=== PATIENT | male | born 1975 | race Hispanic/Latino ===

== ENCOUNTER 2022-01-03 11:01 | Inpatient (IN) | payer OTHER ==
[2022-01-03] VITALS (22 sets, daily range): BP systolic 88–140; BP diastolic 54–81
[~2022-01-03] VITALS: Ht 167.6 cm; Wt 78.5 kg
[2022-01-03] MEDS ORDERED: 0.9%NACL 1000ML 1,000 ML IV ONE ×2 (11:30→12:30)
[2022-01-03] MEDS ORDERED: MORPHINE 4 MG SYG IVP ONE (11:30)
[2022-01-03 11:37] LABS: BASOPHILS % (AUTO) 0.4 % (0.0-5.0); HEMATOCRIT 40.6 % (42-54); LYMPHOCYTES % (AUTO) 2.9 % (21.0-51.0); MEAN CORPUSCULAR HEMOGLOBIN 29.2 pg (27.0-33.0); MEAN CORPUSCULAR HGB CONC 34.2 g/dL (32.0-36.0); MEAN CORPUSCULAR VOLUME 85.3 fL (79-99); MONOCYTES % (AUTO) 3.9 % (3.0-13.0); PLATELET COUNT (AUTO) 284 K/uL (130-400); RED BLOOD CELL COUNT(AUTO) 4.76 MIL/uL (4.50-6.20); RED CELL DISTRIBUTION WIDTH 12.1 % (11.0-15.5)
[2022-01-03 11:48] LABS: ALBUMIN 2.6 g/dL (3.5-5.0); BILIRUBIN,TOTAL 0.6 mg/dL (0.2-1.0); CREATININE 1.2 mg/dL (0.5-1.5); POTASSIUM 3.1 mmol/L (3.5-5.1); TOTAL PROTEIN, SERUM 7.8 g/dL (6.0-8.3)
[2022-01-03] MEDS ORDERED: IOHEXOL-350 75 ML VIAL IV ONE (11:57)
[2022-01-03] MEDS: KETOROLAC 30MG VIAL (30MG/ML) IVP PRN ×2 (12:00→20:11)
[2022-01-03] MEDS ORDERED: ZOSYN 3.375GM +NS 50ML IV SCH (12:30)
[2022-01-03] MEDS ORDERED: INSULIN HUMULIN R 100 UNIT/ML 3ML SQ ONE (12:30)
[2022-01-03] MEDS ORDERED: ZOSYN 3.375GM+NS 50ML 50 ML ONE (12:36)
[2022-01-03] MEDS ORDERED: 0.9%NACL 50ML 50 ML IV ONE (12:38)
[2022-01-03] MEDS ORDERED: INSULIN HUMULIN R 100 UNIT/ML 3ML ONE (12:38)
[2022-01-03 13:01] LABS: APPEARANCE,URINE Cloudy (CLEAR); BILIRUBIN,URINE Negative (NEGATIVE); COLOR,URINE Yellow (YELLOW); GLUCOSE, URINE (UA) >=1000 mg/dL (NEGATIVE); KETONES,URINE Negative (NEGATIVE); LEUKOCYTE ESTERASE ,URINE Small (NEGATIVE); NITRATE,URINE Negative (NEGATIVE); OCCULT BLOOD,URINE Negative (NEGATIVE); PH,URINE 5.5 (5.0-8.0); PROTEIN,URINE Trace mg/dL (NEGATIVE)
[2022-01-03 13:09] LABS: BACTERIA,URINE Moderate /HPF (None Seen); RBC,URINE 0-1 /HPF (0-1)
[2022-01-03] MEDS ORDERED: ONDANSETRON 4MG INJ IV PRN (14:00)
[2022-01-03] MEDS: 0.9%NACL 1000ML 1,000 ML IV SCH (14:00)
[2022-01-03] MEDS ORDERED: ACETAMINOPHEN 325 MG TAB PO PRN ×2 (14:00)
[2022-01-03 14:22] LABS: INR 1.1 (0.85-1.15); PROTHROMBIN TIME 11.9 SEC (9.6-11.6)
[2022-01-03 15:03] LABS: HEMOGLOBIN A1C 11.4 % (4.0-6.0)
[2022-01-03] MEDS: INSULIN HUMULIN R 100 UNIT/ML 3ML SQ SCH ×2 (16:30→21:00)
[2022-01-03] MEDS ORDERED: ATEN50TA PO (16:40)
[2022-01-03] MEDS ORDERED: LISI2.5T13 PO (16:48)
[2022-01-03] MEDS ORDERED: INSULIN LISPRO 100 UNIT/ML 3ML SQ SCH (17:00)
[2022-01-03] MEDS ORDERED: LIDOCAINE PF 100MG/5ML (2%) SYRINGE 5ML ONE (18:46)
[2022-01-03] MEDS ORDERED: MIDAZOLAM HCL 1 MG/ML 2ML VIAL ONE (18:47)
[2022-01-03] MEDS ORDERED: ROCURONIUM 10MG/1ML SYR 10 MG/ML ML ONE (18:47)
[2022-01-03] MEDS ORDERED: PROPOFOL 10 MG/ML 20ML VIAL IV ONE (18:47)
[2022-01-03] MEDS ORDERED: FENTANYL CITRATE PF 50 MCG/1 ML 2ML VIAL ONE (18:47)
[2022-01-03] MEDS ORDERED: MEPERIDINE-PF 25 MG/ML SYG ONE (19:57)
[2022-01-03] MEDS ORDERED: INSULIN GLARGINE 100 UNITS/ML 10 ML VIAL SQ SCH (21:00)
[2022-01-03] MEDS: FAMOTIDINE 20MG VIAL IV SCH (21:32)
[2022-01-03] MEDS: ZOSYN 3.375GM+NS 50ML 50 ML IV SCH (21:32)
[2022-01-03] MEDS ORDERED: LACTATED RINGERS 1000ML 1,000 ML IV ONE (23:46)
[2022-01-04] VITALS (9 sets, daily range): BP systolic 108–140; BP diastolic 63–84
[2022-01-04] MEDS: 0.9%NACL 1000ML 1,000 ML IV SCH ×3 (01:17→20:00)
[2022-01-04] MEDS: ZOSYN 3.375GM+NS 50ML 50 ML IV SCH ×3 (05:03→20:30)
[2022-01-04 05:13] LABS: BASOPHILS % (AUTO) 0.3 % (0.0-5.0); EOSINOPHILS % (AUTO) 0.1 % (0.0-8.0); HEMATOCRIT 33.9 % (42-54); LYMPHOCYTES % (AUTO) 7.6 % (21.0-51.0); MEAN CORPUSCULAR HEMOGLOBIN 29.3 pg (27.0-33.0); MEAN CORPUSCULAR HGB CONC 33.9 g/dL (32.0-36.0); MEAN CORPUSCULAR VOLUME 86.5 fL (79-99); MONOCYTES % (AUTO) 3.9 % (3.0-13.0); NEUTROPHILS % (AUTO) 86.3 % (40.0-77.0); PLATELET COUNT (AUTO) 223 K/uL (130-400); RED BLOOD CELL COUNT(AUTO) 3.92 MIL/uL (4.50-6.20); RED CELL DISTRIBUTION WIDTH 12.6 % (11.0-15.5); WHITE BLOOD COUNT (AUTO) 19.1 K/uL (4.8-10.8)
[2022-01-04 05:26] LABS: ALBUMIN 1.9 g/dL (3.5-5.0); BILIRUBIN,TOTAL 0.2 mg/dL (0.2-1.0); CREATININE 1.1 mg/dL (0.5-1.5); TOTAL PROTEIN, SERUM 6.3 g/dL (6.0-8.3)
[2022-01-04 05:33] LABS: POTASSIUM 2.7 mmol/L (3.5-5.1)
[2022-01-04] MEDS ORDERED: KCL 20 MEQ ERTAB PO ONE (06:00)
[2022-01-04] MEDS: INSULIN HUMULIN R 100 UNIT/ML 3ML SQ SCH ×4 (06:11→20:22)
[2022-01-04 06:20] LABS: ERYTHROCYTE SEDIMENTATION RATE 103 MM/HR (0-15)
[2022-01-04] MEDS: FAMOTIDINE 20MG VIAL IV SCH ×2 (08:42→20:30)
[2022-01-04] MEDS ORDERED: LIDOCAINE HCL-MPF 1% 2ML VIAL IV PRN (09:00)
[2022-01-04] MEDS ORDERED: POTASSIUM CHLORIDE 20MEQ/100ML 100 ML IV PRN (09:00)
[2022-01-04] MEDS: KCL 20 MEQ ERTAB PO PRN ×2 (16:45→21:57)
[2022-01-04] MEDS ORDERED: LACTATED RINGERS 1000ML 1,914 ML IV ONE (23:35)
[2022-01-05] MEDS: KCL 20 MEQ ERTAB PO PRN ×3 (00:30→06:42)
[2022-01-05 04:04] VITALS: BP 136/81
[2022-01-05] MEDS: 0.9%NACL 1000ML 1,000 ML IV SCH ×2 (04:37→16:26)
[2022-01-05] MEDS: ZOSYN 3.375GM+NS 50ML 50 ML IV SCH ×3 (04:37→20:33)
[2022-01-05 04:50] LABS: MEAN CORPUSCULAR HEMOGLOBIN 29.9 pg (27.0-33.0); MEAN CORPUSCULAR HGB CONC 33.8 g/dL (32.0-36.0); MEAN CORPUSCULAR VOLUME 88.3 fL (79-99); RED BLOOD CELL COUNT(AUTO) 3.85 MIL/uL (4.50-6.20); RED CELL DISTRIBUTION WIDTH 12.8 % (11.0-15.5); WHITE BLOOD COUNT (AUTO) 15.2 K/uL (4.8-10.8)
[2022-01-05 05:03] LABS: CREATININE 0.9 mg/dL (0.5-1.5); POTASSIUM 3.3 mmol/L (3.5-5.1)
[2022-01-05] MEDS: INSULIN HUMULIN R 100 UNIT/ML 3ML SQ SCH ×4 (06:41→20:31)
[2022-01-05 08:00] VITALS: BP 147/87
[2022-01-05] MEDS: FAMOTIDINE 20MG VIAL IV SCH ×2 (08:42→20:33)
[2022-01-05] MEDS: POTASSIUM CHLORIDE 10% ELIXIR 20 MEQ/15 ML UDCUP PO PRN ×2 (08:43→13:49)
[2022-01-05 11:53] VITALS: BP 147/73
[2022-01-05 16:00] VITALS: BP 136/88
[2022-01-05 20:04] VITALS: BP 134/78
[2022-01-05 23:55] VITALS: BP 136/79
[2022-01-06] MEDS: 0.9%NACL 1000ML 1,000 ML IV SCH (03:17)
[2022-01-06 04:08] VITALS: BP 139/85
[2022-01-06] MEDS: ZOSYN 3.375GM+NS 50ML 50 ML IV SCH ×3 (05:20→21:09)
[2022-01-06] MEDS: INSULIN HUMULIN R 100 UNIT/ML 3ML SQ SCH ×4 (06:14→21:21)
[2022-01-06 08:00] VITALS: BP 147/84
[2022-01-06] MEDS: FAMOTIDINE 20MG VIAL IV SCH ×2 (08:37→21:09)
[2022-01-06 12:00] VITALS: BP 130/92
[2022-01-06 16:00] VITALS: BP 128/84
[2022-01-06] MEDS: MORPHINE 2 MG SYG IV PRN ×2 (17:25→17:26)
[2022-01-06 20:00] VITALS: BP 133/80
[2022-01-06] MEDS ORDERED: INSULIN GLARGINE 100 UNITS/ML 10 ML VIAL SQ SCH (21:00)
[2022-01-06 23:23] VITALS: BP 143/85
[2022-01-07 04:16] VITALS: BP 130/81
[2022-01-07 04:51] LABS: BASOPHILS % (AUTO) 0.4 % (0.0-5.0); EOSINOPHILS % (AUTO) 0.9 % (0.0-8.0); HEMATOCRIT 37.8 % (42-54); LYMPHOCYTES % (AUTO) 22.4 % (21.0-51.0); MEAN CORPUSCULAR HEMOGLOBIN 29.5 pg (27.0-33.0); MEAN CORPUSCULAR HGB CONC 33.6 g/dL (32.0-36.0); MEAN CORPUSCULAR VOLUME 87.9 fL (79-99); MONOCYTES % (AUTO) 8.8 % (3.0-13.0); NEUTROPHILS % (AUTO) 66.9 % (40.0-77.0); PLATELET COUNT (AUTO) 319 K/uL (130-400); RED CELL DISTRIBUTION WIDTH 12.6 % (11.0-15.5); WHITE BLOOD COUNT (AUTO) 11.5 K/uL (4.8-10.8)
[2022-01-07] MEDS: ZOSYN 3.375GM+NS 50ML 50 ML IV SCH ×3 (05:00→19:38)
[2022-01-07] MEDS: INSULIN HUMULIN R 100 UNIT/ML 3ML SQ SCH ×4 (05:01→19:46)
[2022-01-07 05:36] LABS: ALBUMIN 2.2 g/dL (3.5-5.0); BILIRUBIN,TOTAL 0.3 mg/dL (0.2-1.0); CREATININE 0.8 mg/dL (0.5-1.5); POTASSIUM 3.3 mmol/L (3.5-5.1)
[2022-01-07] MEDS ORDERED: HYDROCODONE/ACETAMINOPHEN 5/325 MG TAB PO PRN (07:00)
[2022-01-07 08:00] VITALS: BP 143/87
[2022-01-07] MEDS: FAMOTIDINE 20MG VIAL IV SCH ×2 (09:36→19:38)
[2022-01-07 12:00] VITALS: BP 113/79
[2022-01-07 16:00] VITALS: BP 137/82
[2022-01-07] MEDS: INSULIN GLARGINE 100 UNITS/ML 10 ML VIAL SQ SCH (19:48)
[2022-01-07 20:31] VITALS: BP 124/82
[2022-01-07 23:15] VITALS: BP 133/81
[2022-01-08 03:58] VITALS: BP 142/82
[2022-01-08] MEDS: ZOSYN 3.375GM+NS 50ML 50 ML IV SCH ×3 (04:16→20:52)
[2022-01-08 04:32] LABS: BASOPHILS % (AUTO) 0.7 % (0.0-5.0); EOSINOPHILS % (AUTO) 1.3 % (0.0-8.0); HEMATOCRIT 37.1 % (42-54); LYMPHOCYTES % (AUTO) 23.3 % (21.0-51.0); MEAN CORPUSCULAR HGB CONC 34.8 g/dL (32.0-36.0); MEAN CORPUSCULAR VOLUME 86.3 fL (79-99); MONOCYTES % (AUTO) 7.9 % (3.0-13.0); NEUTROPHILS % (AUTO) 65.9 % (40.0-77.0); PLATELET COUNT (AUTO) 328 K/uL (130-400); RED CELL DISTRIBUTION WIDTH 12.7 % (11.0-15.5); WHITE BLOOD COUNT (AUTO) 12.8 K/uL (4.8-10.8)
[2022-01-08 04:55] LABS: ALBUMIN 2.3 g/dL (3.5-5.0); BILIRUBIN,TOTAL 0.2 mg/dL (0.2-1.0); CREATININE 0.8 mg/dL (0.5-1.5); POTASSIUM 3.5 mmol/L (3.5-5.1)
[2022-01-08] MEDS: INSULIN HUMULIN R 100 UNIT/ML 3ML SQ SCH ×4 (05:22→20:48)
[2022-01-08 08:00] VITALS: BP 141/86
[2022-01-08] MEDS: FAMOTIDINE 20MG VIAL IV SCH ×2 (10:13→20:53)
[2022-01-08] MEDS: INSULIN GLARGINE 100 UNITS/ML 10 ML VIAL SQ SCH ×2 (10:17→20:48)
[2022-01-08 12:00] VITALS: BP 121/81
[2022-01-08] MEDS ORDERED: POLYETHYLENE GLYCOL 3350 17 GM POWD.PACK PO SCH (12:00)
[2022-01-08 16:00] VITALS: BP 129/85
[2022-01-08 19:00] VITALS: BP 140/79
[2022-01-08] MEDS ORDERED: LOVA20TA3 PO (21:00)
[2022-01-08] MEDS ORDERED: HYDR25TA PO (21:00)
[2022-01-08] MEDS ORDERED: METF-446 PO (21:00)
[2022-01-08] MEDS ORDERED: GLIP10TA19 PO (21:00)
[2022-01-08] MEDS: KCL 20 MEQ ERTAB PO PRN (21:21)
[2022-01-09] VITALS: BP 140/81
[2022-01-09] MEDS: KCL 20 MEQ ERTAB PO PRN (00:48)
[2022-01-09 04:00] VITALS: BP 130/84
[2022-01-09] MEDS: ZOSYN 3.375GM+NS 50ML 50 ML IV SCH ×3 (05:14→21:02)
[2022-01-09] MEDS: INSULIN HUMULIN R 100 UNIT/ML 3ML SQ SCH ×4 (06:35→21:00)
[2022-01-09 06:56] LABS: BASOPHILS % (AUTO) 0.5 % (0.0-5.0); HEMATOCRIT 37.2 % (42-54); LYMPHOCYTES % (AUTO) 25.2 % (21.0-51.0); MEAN CORPUSCULAR HEMOGLOBIN 29.9 pg (27.0-33.0); MEAN CORPUSCULAR HGB CONC 33.9 g/dL (32.0-36.0); MEAN CORPUSCULAR VOLUME 88.4 fL (79-99); MONOCYTES % (AUTO) 7.6 % (3.0-13.0); NEUTROPHILS % (AUTO) 64.5 % (40.0-77.0); PLATELET COUNT (AUTO) 363 K/uL (130-400); RED BLOOD CELL COUNT(AUTO) 4.21 MIL/uL (4.50-6.20); RED CELL DISTRIBUTION WIDTH 12.6 % (11.0-15.5); WHITE BLOOD COUNT (AUTO) 12.3 K/uL (4.8-10.8)
[2022-01-09] MEDS: LACTULOSE 20 GM/30 ML UDCUP PO PRN ×2 (07:12→09:37)
[2022-01-09 07:24] LABS: CREATININE 0.9 mg/dL (0.5-1.5); POTASSIUM 4.1 mmol/L (3.5-5.1)
[2022-01-09 08:00] VITALS: BP 131/89
[2022-01-09] MEDS: INSULIN GLARGINE 100 UNITS/ML 10 ML VIAL SQ SCH ×2 (09:35→20:59)
[2022-01-09] MEDS: POLYETHYLENE GLYCOL 3350 17 GM POWD.PACK PO SCH (09:37)
[2022-01-09] MEDS: FAMOTIDINE 20MG VIAL IV SCH ×2 (09:37→21:02)
[2022-01-09 12:00] VITALS: BP 135/82
[2022-01-09 16:00] VITALS: BP 134/75
[2022-01-09] MEDS: LUBIPROSTONE 24 MCG CAP PO SCH (17:23)
[2022-01-09] MEDS: HYDROMORPHONE 0.5 MG SYG (0.5MG/0.5ML) IVP PRN (17:59)
[2022-01-09 20:00] VITALS: BP 138/78
[2022-01-10] VITALS (7 sets, daily range): BP systolic 122–139; BP diastolic 63–88
[2022-01-10 05:44] LABS: HEMATOCRIT 37.9 % (42-54); MEAN CORPUSCULAR HEMOGLOBIN 29.2 pg (27.0-33.0); MEAN CORPUSCULAR VOLUME 88.6 fL (79-99); RED BLOOD CELL COUNT(AUTO) 4.28 MIL/uL (4.50-6.20); RED CELL DISTRIBUTION WIDTH 12.6 % (11.0-15.5); WHITE BLOOD COUNT (AUTO) 11.2 K/uL (4.8-10.8)
[2022-01-10 06:00] LABS: CREATININE 0.8 mg/dL (0.5-1.5); POTASSIUM 3.9 mmol/L (3.5-5.1)
[2022-01-10] MEDS: ZOSYN 3.375GM+NS 50ML 50 ML IV SCH ×3 (06:24→20:35)
[2022-01-10] MEDS: INSULIN HUMULIN R 100 UNIT/ML 3ML SQ SCH ×4 (07:28→20:40)
[2022-01-10] MEDS: FAMOTIDINE 20MG VIAL IV SCH ×2 (08:48→20:35)
[2022-01-10] MEDS: LUBIPROSTONE 24 MCG CAP PO SCH ×2 (08:48→17:25)
[2022-01-10] MEDS: INSULIN GLARGINE 100 UNITS/ML 10 ML VIAL SQ SCH ×2 (08:48→20:40)
[2022-01-10] MEDS: POLYETHYLENE GLYCOL 3350 17 GM POWD.PACK PO SCH (08:49)
[2022-01-11 04:18] VITALS: BP 122/77
[2022-01-11] MEDS: ZOSYN 3.375GM+NS 50ML 50 ML IV SCH ×2 (05:20→12:36)
[2022-01-11] MEDS: INSULIN HUMULIN R 100 UNIT/ML 3ML SQ SCH ×2 (06:24→11:54)
[2022-01-11 08:00] VITALS: BP 138/81
[2022-01-11] MEDS: FAMOTIDINE 20MG VIAL IV SCH (08:14)
[2022-01-11] MEDS: LUBIPROSTONE 24 MCG CAP PO SCH (08:14)
[2022-01-11] MEDS: POLYETHYLENE GLYCOL 3350 17 GM POWD.PACK PO SCH (08:14)
[2022-01-11] MEDS: INSULIN GLARGINE 100 UNITS/ML 10 ML VIAL SQ SCH (08:20)
[2022-01-11] MEDS ORDERED: POLY17PO4 PO (10:22)
[2022-01-11 12:00] VITALS: BP 126/75
[2022-01-11] MEDS: HYDROMORPHONE 0.5 MG SYG (0.5MG/0.5ML) IVP PRN (13:50)
[2022-01-11 16:00] VITALS: BP 133/76
== END 2022-01-11 17:35 | disposition home or self-care (01) | DRG 854 ==
LOC: EDH 11:01 → EDHIP 11:02 → 3CH 15:40
PROVIDERS: ADMIT Hospitalist; ATTEND Hospitalist
PROC: 0WBM0ZZ Excision of Male Perineum, Open Approach (ICD-10-PCS; principal; 2022-01-03 19:01)
DX: A41.9 Sepsis, unspecified organism (principal); E87.1 Hypo-osmolality and hyponatremia; N49.2 Inflammatory disorders of scrotum; E78.00 Pure hypercholesterolemia, unspecified; I10 Essential (primary) hypertension; Z20.822 Contact with and (suspected) exposure to COVID-19; F17.210 Nicotine dependence, cigarettes, uncomplicated; Z90.49 Acquired absence of other specified parts of digestive tract; E86.1 Hypovolemia; E87.6 Hypokalemia; E11.65 Type 2 diabetes mellitus with hyperglycemia
CPT/HCPCS: 36415; 72193; 76870; 80048; 80053; 81001; 82948; 83036; 83605; 84132; 84145; 85025; 85027; 85610; 85651; 85730; 87040; 87070; 87076; 87088; 87205; 87635; 88305; G0378; J1170; J1815; J1885; J2001; J2175; J2250; J2270; J2405; J2543; J2704; J3010; J3480; J3490; J7030; J7120; Q9967

== ENCOUNTER → 2022-01-25 | Outpatient (CLI) | payer OTHER ==
[~2022-01-25] MED LIST: ATEN50TA PO; GLIP10TA19 PO; HYDR25TA PO; LIDOCAINE HCL 4% LTA SOL 4 ML VIAL TP ONE; LISI2.5T13 PO; LOVA20TA3 PO; METF-446 PO; POLY17PO4 PO
== END | disposition home or self-care (01) ==
LOC: WHH 13:54
PROVIDERS: ATTEND Family Medicine
DX: T81.89XA Other complications of procedures, not elsewhere classified, initial encounter (principal); S31.30XA Unspecified open wound of scrotum and testes, initial encounter; E11.628 Type 2 diabetes mellitus with other skin complications; I10 Essential (primary) hypertension; E78.5 Hyperlipidemia, unspecified; E78.00 Pure hypercholesterolemia, unspecified; E87.1 Hypo-osmolality and hyponatremia; E87.6 Hypokalemia; F17.210 Nicotine dependence, cigarettes, uncomplicated; Z79.84 Long term (current) use of oral hypoglycemic drugs; Z79.899 Other long term (current) drug therapy; Z90.49 Acquired absence of other specified parts of digestive tract; Y83.8 Other surgical procedures as the cause of abnormal reaction of the patient, or of later complication, without mention of misadventure at the time of the procedure; X58.XXXA Exposure to other specified factors, initial encounter; Y93.89 Activity, other specified; Y92.238 Other place in hospital as the place of occurrence of the external cause; Y99.8 Other external cause status
CPT/HCPCS: 11042; A4450; A6248

== ENCOUNTER → 2022-02-01 | Outpatient (CLI) | payer OTHER | LOC: WHH 13:50 | PROVIDERS: ATTEND Family Medicine | DX: T81.89XD Other complications of procedures, not elsewhere classified, subsequent encounter (principal); S31.30XD Unspecified open wound of scrotum and testes, subsequent encounter; E11.628 Type 2 diabetes mellitus with other skin complications; I10 Essential (primary) hypertension; E78.5 Hyperlipidemia, unspecified; E78.00 Pure hypercholesterolemia, unspecified; F17.210 Nicotine dependence, cigarettes, uncomplicated; Z79.84 Long term (current) use of oral hypoglycemic drugs; Z79.899 Other long term (current) drug therapy; X58.XXXD Exposure to other specified factors, subsequent encounter; Y83.8 Other surgical procedures as the cause of abnormal reaction of the patient, or of later complication, without mention of misadventure at the time of the procedure | CPT/HCPCS: 11042; A6248 ==

== ENCOUNTER → 2022-02-08 | Outpatient (CLI) | payer OTHER | LOC: WHH 13:49 | PROVIDERS: ATTEND Family Medicine | DX: T81.89XD Other complications of procedures, not elsewhere classified, subsequent encounter (principal); S31.30XD Unspecified open wound of scrotum and testes, subsequent encounter; E11.628 Type 2 diabetes mellitus with other skin complications; I10 Essential (primary) hypertension; E78.5 Hyperlipidemia, unspecified; E78.00 Pure hypercholesterolemia, unspecified; F17.210 Nicotine dependence, cigarettes, uncomplicated; Z79.84 Long term (current) use of oral hypoglycemic drugs; Z79.899 Other long term (current) drug therapy; X58.XXXD Exposure to other specified factors, subsequent encounter; Y83.8 Other surgical procedures as the cause of abnormal reaction of the patient, or of later complication, without mention of misadventure at the time of the procedure | CPT/HCPCS: 99214; A6248 ==

== ENCOUNTER → 2022-03-09 | Outpatient (CLI) | payer OTHER | END | disposition home or self-care (01) | LOC: WHH 10:19 | PROVIDERS: ATTEND Family Medicine | DX: T81.89XD Other complications of procedures, not elsewhere classified, subsequent encounter (principal); S31.30XD Unspecified open wound of scrotum and testes, subsequent encounter; E11.628 Type 2 diabetes mellitus with other skin complications; I10 Essential (primary) hypertension; E78.5 Hyperlipidemia, unspecified; E78.00 Pure hypercholesterolemia, unspecified; F17.210 Nicotine dependence, cigarettes, uncomplicated; Z79.84 Long term (current) use of oral hypoglycemic drugs; Z79.899 Other long term (current) drug therapy; X58.XXXD Exposure to other specified factors, subsequent encounter; Y83.8 Other surgical procedures as the cause of abnormal reaction of the patient, or of later complication, without mention of misadventure at the time of the procedure | CPT/HCPCS: 11042; A6248 ==

== ENCOUNTER 2022-03-23 10:30 | Outpatient (CLI) | payer OTHER ==
[~2022-03-23 10:30] MED LIST changes: -LIDOCAINE HCL 4% LTA SOL 4 ML VIAL TP ONE
== END 2022-03-23 15:09 | disposition home or self-care (01) ==
LOC: WHH 10:30
PROVIDERS: ATTEND Family Medicine
DX: S31.30XD Unspecified open wound of scrotum and testes, subsequent encounter (principal); E11.628 Type 2 diabetes mellitus with other skin complications; I10 Essential (primary) hypertension; E78.5 Hyperlipidemia, unspecified; E78.00 Pure hypercholesterolemia, unspecified; F17.210 Nicotine dependence, cigarettes, uncomplicated; Z79.84 Long term (current) use of oral hypoglycemic drugs; Z79.899 Other long term (current) drug therapy; X58.XXXD Exposure to other specified factors, subsequent encounter
CPT/HCPCS: 99214

== ENCOUNTER 2024-11-30 22:16 | Inpatient (IN) | payer SELFPAY ==
[~2024-11-30] VITALS: Ht 167.6 cm; Wt 76.8 kg
[~2024-11-30 22:16] MED LIST changes: +GLIP-302 PO; -GLIP10TA19 PO
--- NOTE | 2024-11-30 22:22 | NUR ---
REPORT TO ENRICO YORK
--- NOTE | 2024-11-30 22:27 | ERN ---
General Chief Complaint: Chest Pain Stated Complaint: CHEST PAIN Time Seen by MD: 22:22 Source: patient History of Present Illness Initial Comments Patient is a 49-year-old male coming in to be evaluated for left-sided chest pressure. Patient states that the chest pressure chest pain began early in the morning has waxed and waned all day. He states that the pain is more pressure- like in his localized to the left upper region of his chest. No nausea no vomiting no fever no chills. Allergies: Coded Allergies: No Known Allergies (Unverified Allergy, Unknown, 01/03/22) Home Meds Active Scripts Polyethylene Glycol 3350 (Miralax) 17 Gm Powd.pack, 17 GM PO DAILY for 30 Days, #30 TAB Prov:GISEL VILLEGAS NP 01/11/22 Reported Medications Hydrochlorothiazide (Hydrochlorothiazide) 25 Mg Tablet, 25 MG PO DAILY, TAB 01/08/22 Glipizide (Glipizide ER) 10 Mg Tab.er.24, 10 MG PO BIDLUNCHDINNER 01/08/22 Metformin HCl (Metformin HCl) 1,000 Mg Tablet, 1000 MG PO BID, TAB 01/08/22 Lovastatin (Lovastatin) 20 Mg Tablet, 20 MG PO DAILY, TAB 01/08/22 Lisinopril (Lisinopril) 2.5 Mg Tablet, 2.5 MG PO DAILY, TAB 01/03/22 Atenolol (Atenolol) 50 Mg Tablet, 50 MG PO DAILY, TAB 01/03/22 Past Medical History Past Medical History: Diabetes-Type II, High Cholesterol, Hypertension Past Surgical History: Cholecystectomy, Other Surgical History Other: SCROTAL Social History Social History: Other ROS Dictation CONSTITUTIONAL: No chills, no fever, no weakness, no diaphoresis, no malaise. HEAD/FACE: No signs of trauma. EENT: No eye pain, no blurred vision, no tearing, no double vision, no ear pain, no ear discharge, no nose pain, no nasal congestion, no throat pain, no throat swelling, no mouth pain. RESPIRATORY: No cough, no orthopnea, no SOB, no stridor, no wheezing. CARDIOVASCULAR: No chest pain, no edema, no palpitations, no syncope. GASTROINTESTINAL/ABDOMINAL: No abdominal pain, no constipation, no diarrhea, no nausea, no vomiting. GENITOURINARY: No abnormal discharge, no dysuria, no frequent urination, no hematuria. No complaints of pain in the genitals. MUSCULOSKELETAL: No back pain, no gout, no joint pain, no joint swelling, no muscle pain, no muscle stiffness, no neck pain. INTEGUMENTARY: No change in color, no change in hair/nails, no dryness, no lesion, no lumps, no rash. NEUROLOGICAL/PSYCH: No anxiety, not depressed, no emotional problem, no headache, no numbness, no pre-existing deficit, no history of seizures, no tremors, no weakness. HEMATOLOGIC/LYMPHATIC: Not anemic, no history of blood clots, no apparent bleeding, no bruising, glands not swollen. All Systems Negative, Except as Noted. Physical Exam Physical Exam Dictation VITAL SIGNS: Reviewed. GENERAL APPEARANCE: Alert, oriented x3, no acute distress, obese. HEAD AND FACE: Non-traumatic. EYES: PERRL, pink conjunctivas, eyelid no trauma, anterior chamber clear. EARS: Pinnas intact and no signs of trauma or erythema. Ear canals clear and no discharge. TMs no erythema. NOSE: No discharge, no bleeding. OROPHARYNX: Mouth normal, teeth no caries, tongue pink. Pharynx clear, no erythema. Tonsils no exudates, no abscesses noted. Mucous membrane moist. NECK: Supple, non-tender, no thyromegaly, no masses, no JVD, no bruits. BREAST: Deferred. CHEST: No tenderness, no crepitus, no paradoxical movement, no retractions. LUNGS: Clear, well-ventilated, symmetric, no rales, no wheezing, no rhonchi, no stridor, good breath sounds bilaterally. HEART: Regular rate, regular rhythm, no murmur, no gallops. VASCULAR: No peripheral edema. ABDOMEN: Soft, positive bowel sounds, nondistended, no guarding, nontender, no rebound, no masses no hepatomegaly, no splenomegaly, no Cummings's sign, no hernias. RECTAL: Deferred. GENITAL: Deferred. NEUROLOGICAL: Normal speech, gross motor function intact, gross sensory function intact. MUSCULOSKELETAL: Neck nontender, full range of motion, back nontender, full range of motion. EXTREMITIES: Nontender, full range of motion. SKIN: Color pink, dry, no turgor, no rash, no lacerations, no abrasions, no contusions. LYMPHATICS: Deferred. Results Laboratory and Microbiology Lab and Micro Result Laboratory Tests Test 11/30/24 22:24 11/30/24 22:45 11/30/24 23:14 12/01/24 00:29 White Blood Count 11.7 K/uL (4.8-10.8) H Red Blood Count 4.55 MIL/uL (4.50-6.20) Hemoglobin 13.1 g/dL (14.0-18.0) L Hematocrit 39.4 % (42-54) L Mean Corpuscular Volume 86.6 fL (79-99) Mean Corpuscular Hemoglobin 28.8 pg (27.0-33.0) Mean Corpuscular Hemoglobin Concent 33.2 g/dL (32.0-36.0) Red Cell Distribution Width 12.5 % (11.0-15.5) Platelet Count 462 K/uL (130-400) H Mean Platelet Volume 9.1 fL (7.5-10.5) Immature Granulocyte % (Auto) 0.7 % (0-1) Neutrophils (%) (Auto) 77.6 % (40.0-77.0) H Lymphocytes (%) (Auto) 14.5 % (21.0-51.0) L Monocytes (%) (Auto) 6.3 % (3.0-13.0) Eosinophils (%) (Auto) 0.5 % (0.0-8.0) Basophils (%) (Auto) 0.4 % (0.0-5.0) Neutrophils # (Auto) 9.1 K/uL (1.8-7.7) H Lymphocytes # (Auto) 1.7 K/uL (1.0-4.8) Monocytes # (Auto) 0.7 K/uL (0.1-1.0) Eosinophils # (Auto) 0.06 K/uL (0.00-0.70) Basophils # (Auto) 0.05 K/uL (0.00-0.20) Absolute Immature Granulocyte (auto 0.08 K/uL (0-1) Nucleated Red Blood Cells 0.0 % (0.0-0.19) Sodium Level 131 mmol/L (136-145) L Potassium Level 4.5 mmol/L (3.5-5.1) Chloride Level 95 mmol/L (101-111) L Carbon Dioxide Level 34 mmol/L (21-32) H Blood Urea Nitrogen 11 mg/dL (7-18) Creatinine 1.0 mg/dL (0.5-1.3) Glomerular Filtration Rate Calc 93 mL/min (>90) Random Glucose 488 mg/dL (70-105) *H Total Calcium 8.9 mg/dL (8.5-10.1) Total Creatine Kinase 99 U/L (21-232) Troponin I High Sensitivity 1732 ng/L (4-75) *H 1661 ng/L (4-75) *H B-Type Natriuretic Peptide 1180 pg/mL (0-100) H Influenza Type A Antigen Negative For Type A Influenza Type B Antigen Negative For Type B SARS-CoV-2, RNA, NAAT NEGATIVE SARS CoV-2 Urine Color LIGHT-YELLOW (YELLOW) Urine Appearance CLEAR (CLEAR) Urine pH 7.0 (5.0-8.0) Urine Specific [place] 1.032 (1.001-1.031) Urine Protein 20 mg/dL (NEGATIVE) H Urine Glucose (UA) >=1000 mg/dL (NEGATIVE) H Urine Ketones NEGATIVE mg/dL (NEGATIVE) Urine Occult Blood +- (TRACE) (NEGATIVE) H Urine Nitrate NEGATIVE (NEGATIVE) Urine Bilirubin NEGATIVE mg/dL (NEGATIVE) Urine Urobilinogen 0.2 mg/dL (0.2-1.0) Urine Leukocyte Esterase NEGATIVE Marcia/uL Urine RBC 2-5 /HPF (0-1) H Urine WBC 0-1 /HPF (0-1) Urine Bacteria None /HPF (None Seen) Whole Blood Ketones Quantitative 0.2 mmol/L (0.0-0.6) Urine Opiates Screen NEGATIVE (NEGATIVE) Urine Barbiturates Screen NEGATIVE (NEGATIVE) Urine Phencyclidine Screen NEGATIVE (NEGATIVE) Urine Amphetamines Screen POSITIVE (NEGATIVE) H Urine Benzodiazepines Screen NEGATIVE (NEGATIVE) Urine Cocaine Screen NEGATIVE (NEGATIVE) Urine Marijuana (THC) Screen NEGATIVE (NEGATIVE) Blood Gas Specimen Type Arterial Arterial Blood pH 7.437 (7.350-7.450) Arterial Blood Partial Pressure CO2 35 mmHg (35-48) Arterial Blood Partial Pressure O2 69.4 mmHg (83.0-108.0) L Arterial Blood HCO3 23.1 mmol/L (21.0-28.0) Arterial Blood Oxygen Saturation 93.8 % (94.0-98.0) L Arterial Blood Base Excess -0.5 mmol/L (-2.0-3.0) Hemoglobin (Blood Gas) 13.4 g/dL (13.5-17.5) L Sodium (Blood Gas) 129 MMOL/L (136-145) L Bedside Potassium (Blood Gas) 4.1 MMOL/L (3.4-4.5) Bedside Chloride (Blood Gas) 97 MMOL/L (98-107) L Bedside Glucose (Blood Gas) 426 MG/DL (65-95) H Bedside Ionized Calcium (Blood Gas) 1.18 MMOL/L (1.15-1.33) Bedside Lactic Acid (Blood Gas) 1.12 MMOL/L (0.36-0.75) H Blood Gas Temperature 37.0 CELSIUS (35.5-37.0) Blood Gas Flow-by 3.00 L/min (0.00-15.00) Blood Gas Vent Mode NC (ROOM AIR) FiO2 32.0 % Blood Gas Specimen Comment RB RN DOMINIK Labs Reviewed?: Yes EKG/XRAY/US/CT/MRI EKG Comment 11/30/2024 time 10:23 p.m. Ventricular rate [address] wave elevation or depression [place] 136 X-RAY Comment Chest [id number] congestion, pulmonary infiltrates MDM MDM: Differential diagnosis: NSTEMI, ACS, STEMI, hypoglycemia, amphetamine abuse, acute CHF, Rationale: Tests considered and ordered secondary to shared decision making include: labs, ECG and radiology Previous outside records reviewed: Old ER visits. Risk of complication and/or morbidity or mortality of patient management: None Medications-Per medication reconciliation Need for hospitalization: Patient does meet criteria for hospitalization. Need for emergency major/minor surgery: No There are no social concerns with this patient. Prescription drug management Prescriptions will include symptomatic care Patient's prior external medical records from other ER visits were reviewed by me as indicated. Prior testing and results from previous visits were reviewed. Prior tests were taken into account with medical decision making and resource utilization, independent historian/historians were used to obtain complete medical history. I independently interpreted the test that were performed, results were reviewed by me and considered findings on radiology if ordered. Medical management and examination interpretation discussions were had by me with other qualified healthcare professionals as indicated for the patient's care. Patient will be admitted under the care of hospitalist group for ongoing management. ED Course Orders Procedure Category Date Status Time Vital Signs Per CPOE 11/30/24 Transmitted Routine 22:19 B-Type Natriuretic LAB 11/30/24 Complete Peptide 22:19 Chest 1vw RAD 11/30/24 Taken 22:19 12 Lead Ekg Tracing- EKG 11/30/24 Logged Technical 22:19 Oxygen By Nc/Pulse Ox CPOE 11/30/24 Transmitted 22:19 Maintain Iv CPOE 11/30/24 Transmitted 22:19 Iv Insertion CPOE 11/30/24 Transmitted 22:19 Cardiac Monitoring CPOE 11/30/24 Transmitted 22:19 Pulse Oximetry With CPOE 11/30/24 Transmitted Vs And Prn 22:19 Cbc With Differential LAB 11/30/24 Complete 22:19 Activity: Br W/Brp CPOE 11/30/24 Transmitted With Assist 22:19 Creatine Kinase, Total LAB 11/30/24 Complete 22:19 Troponin I High LAB 11/30/24 Complete Sensitivity 22:19 Urinalysis Profile LAB 11/30/24 Complete 22:19 Bedside Troponin-I LAB.ER 11/30/24 In Process (Poc) 22:19 Basic Metabolic Panel LAB 11/30/24 Complete 22:19 Drug Screen Urine LAB 11/30/24 Complete 22:25 Covid Rna Naat LAB 11/30/24 Complete 22:46 Influenza Type A & B, LAB 11/30/24 Complete Rapid 22:46 Aspirin 325mg Tab PHA 11/30/24 Complete (Aspirin 325mg Tab) 23:00 Arterial Blood Gas + RT 11/30/24 Transmitted 22:58 Ketone Blood LAB 11/30/24 Complete Quantitative 22:58 Troponin I High LAB 11/30/24 Complete Sensitivity 23:00 Diazepam 5 Mg/Ml 2 Ml PHA 12/01/24 Complete Syg (Valium 5 Mg/M 00:00 Insulin Regular, PHA 12/01/24 Complete Human 3ml (Humulin R 00:30 Arterial Blood Gas LAB 12/01/24 Complete Arterial + 00:29 Current Medications Medications (Trade) Dose Ordered Sig/Nasim Route PRN Reason Start Time Stop Time Status Last Admin Dose Admin Aspirin (Aspirin 325mg Tab) 325 mg ONCE ONCE PO 11/30/24 23:00 11/30/24 23:04 DC 11/30/24 23:11 Diazepam (VALium 5 MG/ML 2 ML SYG) 5 mg ONCE ONCE IM 12/01/24 00:00 12/01/24 00:01 DC 11/30/24 23:54 Insulin Human Regular (humuLIN R 100 UNIT/ML 3ML) 5 unit ONCE ONCE IV 12/01/24 00:30 12/01/24 00:31 DC Vital Signs Date Time Temp Pulse Resp B/P (MAP) Pulse Ox O2 Delivery O2 Flow Rate FiO2 11/30/24 23:51 119 22 115/83 96 Nasal Cannula* 3 32 11/30/24 22:36 117 24 111/55 94 Room Air* 0 21 11/30/24 22:17 97.5 119 20 132/89 98 Room Air Critical Care Note Comments Critical Care Procedure Note Authorized and Performed by: me Total critical care time: Approximately 36 minutes Due to a high probability of clinically significant, life threatening deterioration, the patient required my highest level of preparedness to intervene emergently and I personally spent this critical care time directly and personally managing the patient. This critical care time included obtaining a history; examining the patient; pulse oximetry; ordering and review of studies; arranging urgent treatment with development of a management plan; evaluation of patient's response to treatment; frequent reassessment; and, discussions with other providers. This critical care time was performed to assess and manage the high probability of imminent, life-threatening deterioration that could result in multi-organ failure. It was exclusive of separately billable procedures and treating other patients and teaching time. Please see MDM section and the rest of the note for further information on patient assessment and treatment. DX & DISP Disposition: Inpatient Decision to Admit Time: 00:37 Departure Impression: Primary Impression: Uncontrolled diabetes mellitus Additional Impressions: NSTEMI (non-ST elevated myocardial infarction), Acute exacerbation of CHF (congestive heart failure), Amphetamine abuse Condition: Stable Referrals: SELF,REFERRAL (PCP) AJITH IVY MD Nov 30, 2024 22:27
[2024-11-30 22:32] LABS: BASOPHILS # (AUTO) 0.05 K/uL (0.00-0.20); BASOPHILS % (AUTO) 0.4 % (0.0-5.0); EOSINOPHILS # (AUTO) 0.06 K/uL (0.00-0.70); EOSINOPHILS % (AUTO) 0.5 % (0.0-8.0); HEMATOCRIT 39.4 % (42-54); IMMATURE GRANULOCYTE ABSOLUTE 0.08 K/uL (0-1); LYMPHOCYTES # (AUTO) 1.7 K/uL (1.0-4.8); LYMPHOCYTES % (AUTO) 14.5 % (21.0-51.0); MEAN CORPUSCULAR HEMOGLOBIN 28.8 pg (27.0-33.0); MEAN CORPUSCULAR HGB CONC 33.2 g/dL (32.0-36.0); MEAN CORPUSCULAR VOLUME 86.6 fL (79-99); MONOCYTES # (AUTO) 0.7 K/uL (0.1-1.0); MONOCYTES % (AUTO) 6.3 % (3.0-13.0); NEUTROPHILS # (AUTO) 9.1 K/uL (1.8-7.7); NEUTROPHILS % (AUTO) 77.6 % (40.0-77.0); PLATELET COUNT (AUTO) 462 K/uL (130-400); RED BLOOD CELL COUNT(AUTO) 4.55 MIL/uL (4.50-6.20); RED CELL DISTRIBUTION WIDTH 12.5 % (11.0-15.5); WHITE BLOOD COUNT (AUTO) 11.7 K/uL (4.8-10.8)
[2024-11-30 22:49] LABS: POTASSIUM 4.5 mmol/L (3.5-5.1)
[2024-11-30 22:56] LABS: B-TYPE NATRIURETIC PEPTIDE 1180 pg/mL (0-100)
--- NOTE | 2024-11-30 22:59 | NUR ---
TROP [id number] IVY- AWARE
[2024-11-30] MEDS: ASPIRIN 325MG TAB PO ONE (23:11)
[2024-11-30 23:12] LABS: SARS-CoV-2, RNA, NAAT NEGATIVE SARS CoV-2 (NEGATIVE)
[2024-11-30 23:16] LABS: INFLUENZA TYPE A Negative For Type A (NEGATIVE); INFLUENZA TYPE B Negative For Type B (NEGATIVE)
[2024-11-30 23:27] LABS: APPEARANCE,URINE CLEAR (CLEAR); BILIRUBIN,URINE NEGATIVE (NEGATIVE); COLOR,URINE LIGHT-YELLOW (YELLOW); GLUCOSE, URINE (UA) >=1000 mg/dL (NEGATIVE); KETONES,URINE NEGATIVE (NEGATIVE); LEUKOCYTE ESTERASE ,URINE NEGATIVE Leu/uL (NEGATIVE); NITRATE,URINE NEGATIVE (NEGATIVE); PROTEIN,URINE 20 mg/dL (NEGATIVE); UROBILINOGEN,URINE 0.2 mg/dL (0.2-1.0)
[2024-11-30 23:29] LABS: ADD UA MICROSCOPIC YES
[2024-11-30 23:30] LABS: WBC,URINE 0-1 /HPF (0-1)
[2024-11-30 23:35] LABS: AMPHET/METH SCREEN,URINE POSITIVE (NEGATIVE); BARBITURATE SCREEN, URINE NEGATIVE (NEGATIVE); BENZODIAZEPINES SCREEN,URINE NEGATIVE (NEGATIVE); CANNABINOID SCREEN,URINE NEGATIVE (NEGATIVE); COCAINE SCREEN,URINE NEGATIVE (NEGATIVE); OPIATE SCREEN,URINE NEGATIVE (NEGATIVE); PHENCYCLIDINE SCREEN,URINE NEGATIVE (NEGATIVE)
[2024-11-30] MEDS: diazePAM 5 MG/ML 2 ML SYG IM ONE (23:54)
[2024-12-01] VITALS (20 sets, daily range): BP systolic 103–127; BP diastolic 62–77; PULSE 85–114; RESP 19–34; TEMP 97.4–99; O2SAT 92–96
[2024-12-01 00:30] LABS: ABG BASE EXCESS -0.5 mmol/L (-2.0-3.0); ABG HCO3 23.1 mmol/L (21.0-28.0); ABG OXYGEN SATURATION 93.8 % (94.0-98.0); ABG PCO2 35 mmHg (35-48); ABG PH 7.437 (7.350-7.450); CARBON MONOXIDE 2.5 % (0.5-1.5); PO2, ARTERIAL BG 69.4 mmHg (83.0-108.0); VENT MODE, BG NC (ROOM AIR)
[2024-12-01] MEDS: INSULIN humuLIN R 100 UNIT/ML 3ML IV ONE (00:35)
[2024-12-01] MEDS ORDERED: acetaMINOPHEN 325 MG TAB PO PRN (01:30)
[2024-12-01] MEDS ORDERED: PoTASSium chloRIDE 20MEQ/100ML 100 ML IV PRN (01:30)
[2024-12-01] MEDS ORDERED: DEXTROSE 50%-WATER 50 ML DISP.SYRIN IV PRN (01:30)
[2024-12-01] MEDS ORDERED: NITROGLYCERIN 0.4 MG SL TAB SL PRN (01:30)
[2024-12-01] MEDS ORDERED: PoTASSium chl 10% ELIXIR 20MEQ 20 MEQ/15 ML UDCUP PO PRN (01:30)
[2024-12-01] MEDS ORDERED: GLUCAGON 1MG KIT 1 MG ML IM PRN (01:30)
[2024-12-01] MEDS ORDERED: ondanSETRON 4MG INJ IV PRN (01:30)
--- NOTE | 2024-12-01 01:51 | HP ---
[facility] Date of Service: Dec 01, 2024 Time of Service: 00:59 PCP: Naveed Cruz HISTORY OF PRESENT ILLNESS: This is a 49-year-old male with past medical history of diabetes, hyperlipidemia and hypertension who presents to the ED for complaints of left-sided chest pain started this morning. Patient described chest pain as pressure associated with diaphoresis,and shortness of breath.Patient reports his condition started by having a dry cough 2 days ago and he started having shortness of breath and unable to lay down because he feels drowning so he started sleeping sitting down in the chair at home for past 2 nights he said and he noticed his legs are swollen today and this morning when he woke up he started having left sided chest pressure and comes and goes,he thought it was from the way he slept and his position.Around 2:30 pm yesterday the pain intensity on his left sided chest start increasing and it became sharp so he decided to come to the ED for evaluation.Patient denies any CHF and other cardiac problem.Patient reports 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 Seen and examined patient in the ER awake,alert and coherent.Patient denies chest pain at the time of my evaluation. was at bedside during my evaluation.Patient denies fever,chills,palpitation nausea, vomiting and abdominal pain. Latest vital signs temperature 97.5, heart rate 119, respiration 22, blood pressure 115/83, saturation 96% on 3 L nasal cannula. Labs: WBC 11.7 with negative left shift of neutrophils 77.6, hemoglobin 13.1, hematocrit 39.4 platelet count 462. Sodium 131, potassium 4.5, chloride 95, carbon dioxide 34 glucose 488, ketones 0.2, troponin 1732 to 1661 BNP 1180. ABG pH 7.43, CO2 35, PO2 69.4, bicarb 23 O2 saturation 93.8 base excess -0.5. Urine toxicology result positive for amphetamines. Influenza type a and B negative SARs COVID negative. Chest x-ray result is still pending at this time. EKG result revealed sinus tachycardia heart rate 118 with probable anterior infarct age indeterminate. While in the ER patient received 5 units insulin, Valium 5 mg IM and aspirin 325 mg p.o.. We will admit patient for further medical management. REVIEW OF SYSTEMS CONSTITUTIONAL: Denies fevers, chills, or night sweats. No unintentional weight loss reported. NEUROLOGICAL: Denies headache, amaurosis fugax, motor weakness, sensory defi cit, vertigo/spinning sensation, gait abnormalities, or tremors. ENT: No hearing loss, otalgia, otorrhea, rhinitis, rhinorrhea, hoarseness, or sore throat. CARDIOVASCULAR: Complaints of chest pain dyspnea on exertion orthopnea Denies paroxysmal nocturnal dyspnea, palpitations, life-threatening arrhythmias, claudication. PULMONARY: Complaints of shortness of breaths and dry cough Denies phlegm/sputum, hemoptysis, pleuritic chest pain. SLEEP: Denies morning headaches, daytime somnolence or napping. Denies difficulty falling asleep, staying asleep, waking from sleep. Denies knowledge of snoring. GASTROINTESTINAL: Denies any type of dysphagia to either liquids or solids. Denies nausea, vomiting, pyrosis, early satiety, abdominal pain, diarrhea, constipation, or changes in stool consistency or caliber. Denies coffee-ground emesis, hematemesis, hematochezia, or melanotic stools. GENITOURINARY: Denies frequency, urgency, nocturia, hematuria or incontinence (Storage/Irritative symptoms.) Low urinary stream, straining to void, urinary intermittency or hesitancy, splitting of the voiding stream, terminal dribbling. ENDOCRINOLOGIC: Denies polyuria, polydipsia, polyphagia or heat/cold intolerances. HEMATOLOGIC: Denies thrombophilia/previous clots, or coagulopathy/bleeding disorders. ONCOLOGIC: Denies personal history of malignancy. DERMATOLOGIC: Denies rashes or pruritus. PSYCHIATRIC: Denies any suicidal or homicidal ideation. Denies hallucinations. PAST MEDICAL HISTORY: Diabetes, hypertension and hyperlipidemia PAST SURGICAL HISTORY: Cholecystectomy and incision and drainage of scrotal abscess PAST SOCIAL HISTORY: Patient lives with . Patient admits to smoking 10 cigarettes per day. Patient states he used to drink beer 12 per day quit three years ago. Patient denies recreational drug use FAMILY HISTORY: [place], diabetes and hypertension -Father Coded Allergies: No Known Allergies (Unverified Allergy, Unknown, 01/03/22) PHYSICAL EXAM GENERAL APPEARANCE: The patient is awake, alert, and oriented, in no acute cardiopulmonary distress. NEUROLOGICAL: Cranial nerves II-XII grossly intact. Motor is 5/5 in bilateral upper and lower extremities proximal to distal. No sensory deficits. HEENT: Face is symmetric. Pupils are equal and reactive. Extraocular movements are intact. NECK: Supple. No JVD. No thyromegaly. No submental, submandibular, pre- /postauricular, occipital or supraclavicular lymphadenopathy. CHEST: Normal chest expansion. Telemetry. LUNGS: Crackles to the lower bases on both lung correa per auscultation CARDIOVASCULAR: Tachycardic and Regular. S1 and S2 normal. No appreciable rubs, murmurs or gallops. ABDOMEN: Soft, nontender, and nondistended. There is no rebound, voluntary guarding, or rigidity. : Deferred. No [place]. EXTREMITIES: 2+ edema to bilateral lower extremities Good capillary refill. SKIN: No skin breakdown. Vital Sign (Last 24 Hours) 11/30/24 11/30/24 22:17 23:51 Temp 97.5 Pulse 119 Resp 22 B/P (MAP) 115/83 Pulse Ox 96 O2 Delivery Nasal Cannula* O2 Flow Rate 3 FiO2 32 LABS: Laboratory: Test 12/01/24 00:34 12/01/24 00:29 11/30/24 23:14 11/30/24 22:45 Range/Units Whole Blood Glucose 445 *H 70-110 MG/DL Bedside Glucose Comment Notified Nurse Blood Gas Specimen Type Arterial Arterial Blood pH 7.437 7.350-7.450 Arterial Blood Partial Pressure CO2 35 35-48 mmHg Arterial Blood Partial Pressure O2 69.4 L 83.0-108.0 mmHg Arterial Blood HCO3 23.1 21.0-28.0 mmol/L Arterial Blood Oxygen Saturation 93.8 L 94.0-98.0 % Arterial Blood Base Excess -0.5 -2.0-3.0 mmol/L Hemoglobin (Blood Gas) 13.4 L 13.5-17.5 g/dL Sodium (Blood Gas) 129 L 136-145 MMOL/L Bedside Potassium (Blood Gas) 4.1 3.4-4.5 MMOL/L Bedside Chloride (Blood Gas) 97 L 98-107 MMOL/L Bedside Glucose (Blood Gas) 426 H 65-95 MG/DL Bedside Ionized Calcium (Blood Gas) 1.18 1.15-1.33 MMOL/L Bedside Lactic Acid (Blood Gas) 1.12 H 0.36-0.75 MMOL/L Blood Gas Temperature 37.0 35.5-37.0 CELSIUS Blood Gas Flow-by 3.00 0.00-15.00 L/min Blood Gas Vent Mode NC ROOM AIR FiO2 32.0 % Blood Gas Specimen Comment RB RN DOMINIK Urine Color LIGHT-YELLOW YELLOW Urine Appearance CLEAR CLEAR Urine pH 7.0 5.0-8.0 Urine Specific [place] 1.032 H 1.001-1.031 Urine Protein 20 H NEGATIVE mg/dL Urine Glucose (UA) >=1000 H NEGATIVE mg/dL Urine Ketones NEGATIVE NEGATIVE mg/dL Urine Occult Blood +- (TRACE) H NEGATIVE Urine Nitrate NEGATIVE NEGATIVE Urine Bilirubin NEGATIVE NEGATIVE mg/dL Urine Urobilinogen 0.2 0.2-1.0 mg/dL Urine Leukocyte Esterase NEGATIVE NEGATIVE Marcia/uL Urine RBC 2-5 H 0-1 /HPF Urine WBC 0-1 0-1 /HPF Urine Bacteria None None Seen /HPF Whole Blood Ketones Quantitative 0.2 0.0-0.6 mmol/L Troponin I High Sensitivity 1661 *H 4-75 ng/L Urine Opiates Screen NEGATIVE NEGATIVE Urine Barbiturates Screen NEGATIVE NEGATIVE Urine Phencyclidine Screen NEGATIVE NEGATIVE Urine Amphetamines Screen POSITIVE H NEGATIVE Urine Benzodiazepines Screen NEGATIVE NEGATIVE Urine Cocaine Screen NEGATIVE NEGATIVE Urine Marijuana (THC) Screen NEGATIVE NEGATIVE Influenza Type A Antigen Negative For Type A NEGATIVE Influenza Type B Antigen Negative For Type B NEGATIVE SARS-CoV-2, RNA, NAAT NEGATIVE SARS CoV-2 NEGATIVE Test 11/30/24 22:24 Range/Units White Blood Count 11.7 H 4.8-10.8 K/uL Red Blood Count 4.55 4.50-6.20 MIL/uL Hemoglobin 13.1 L 14.0-18.0 g/dL Hematocrit 39.4 L 42-54 % Mean Corpuscular Volume 86.6 79-99 fL Mean Corpuscular Hemoglobin 28.8 27.0-33.0 pg Mean Corpuscular Hemoglobin Concent 33.2 32.0-36.0 g/dL Red Cell Distribution Width 12.5 11.0-15.5 % Platelet Count 462 H 130-400 K/uL Mean Platelet Volume 9.1 7.5-10.5 fL Immature Granulocyte % (Auto) 0.7 0-1 % Neutrophils (%) (Auto) 77.6 H 40.0-77.0 % Lymphocytes (%) (Auto) 14.5 L 21.0-51.0 % Monocytes (%) (Auto) 6.3 3.0-13.0 % Eosinophils (%) (Auto) 0.5 0.0-8.0 % Basophils (%) (Auto) 0.4 0.0-5.0 % Neutrophils # (Auto) 9.1 H 1.8-7.7 K/uL Lymphocytes # (Auto) 1.7 1.0-4.8 K/uL Monocytes # (Auto) 0.7 0.1-1.0 K/uL Eosinophils # (Auto) 0.06 0.00-0.70 K/uL Basophils # (Auto) 0.05 0.00-0.20 K/uL Absolute Immature Granulocyte (auto 0.08 0-1 K/uL Nucleated Red Blood Cells 0.0 0.0-0.19 % Sodium Level 131 L 136-145 mmol/L Potassium Level 4.5 3.5-5.1 mmol/L Chloride Level 95 L 101-111 mmol/L Carbon Dioxide Level 34 H 21-32 mmol/L Blood Urea Nitrogen 11 7-18 mg/dL Creatinine 1.0 0.5-1.3 mg/dL Glomerular Filtration Rate Calc 93 >90 mL/min Random Glucose 488 *H 70-105 mg/dL Total Calcium 8.9 8.5-10.1 mg/dL Total Creatine Kinase 99 21-232 U/L B-Type Natriuretic Peptide 1180 H 0-100 pg/mL DIAGNOSTICS / RADIOLOGY: [ ] ASSESSMENT: Acute respiratory failure with hypoxia POA NSTEMI POA Suspected acute CHF POA Uncontrolled diabetes with hyperglycemia POA Normocytic normochromic anemia POA Acute thrombocytosis POA Pseudohyponatremia secondary to hyperglycemia POA Hyperlipidemia POA Nicotine dependence POA Positive amphetamines POA PLAN: We will admit patient in [facility]U We will start on consistent carb and heart healthy diet We will start on Famotidine 20 mg p.o. bid for GI prophylaxis We will start on Lasix 20 mg IV Q12 H We will start aspirin 81 mg p.o. daily We will start nitro paste 0.5 topical t.i.d. We will start Lovenox 30 mg subQ daily for DVT prophylaxis We will replace electrolytes as needed per protocol We will start on insulin sliding scale AC & HS with hypoglycemia protocol We will add prn medication for fever,pain,cough , nausea and vomiting We will reconcile home meds once medlist available We will trend troponin q.6 hours x3 Daily weight and strict I&O Fluid restriction 1.5 L per day We will obtain echocardiogram We will seek Cardiology consultation We will request labs in am Further orders to follow depending on above results Case discussed with attending physician and came up with above treatment and plan of care. ADVANCED CARE PLANNING 1. Which of the following were discussed? Hospice Care - No Therapeutic options - Yes Advance Directives - No Other discussions - 2. Discussed with who? Patient and Cammy Bellamy 3. Voluntary nature of this service was explained to the patient? Yes 4. Amount of time spent - _25 5. Reviewed by Physician? (if this service was performed by NPP) Yes Patient seen and examined by me. Agree with note by SAW EDGE FUSER CIRCULAR SEE ADDITIONAL ORDERS PER CHART DISCUSSED WITH NURSING STAFF FRANCY ESTRADAP Dec 01, 2024 01:51
[2024-12-01] MEDS: NITROGLYCERIN 1GM OINT 1 INCH/1GM TD SCH (02:16)
--- NOTE | 2024-12-01 05:32 | EKG ---
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
[2024-12-01] MEDS: IpraTROPium/alBUTERol SULFATE 3 ML SOLUTION IH PRN (06:35)
[2024-12-01 07:11] LABS: BASOPHILS # (AUTO) 0.05 K/uL (0.00-0.20); BASOPHILS % (AUTO) 0.4 % (0.0-5.0); EOSINOPHILS # (AUTO) 0.07 K/uL (0.00-0.70); EOSINOPHILS % (AUTO) 0.6 % (0.0-8.0); HEMATOCRIT 37.8 % (42-54); IMMATURE GRANULOCYTE ABSOLUTE 0.05 K/uL (0-1); LYMPHOCYTES # (AUTO) 2.2 K/uL (1.0-4.8); LYMPHOCYTES % (AUTO) 19.7 % (21.0-51.0); MEAN CORPUSCULAR HEMOGLOBIN 28.7 pg (27.0-33.0); MEAN CORPUSCULAR HGB CONC 33.3 g/dL (32.0-36.0); MEAN CORPUSCULAR VOLUME 86.1 fL (79-99); MONOCYTES # (AUTO) 0.9 K/uL (0.1-1.0); MONOCYTES % (AUTO) 7.5 % (3.0-13.0); NEUTROPHILS # (AUTO) 8.1 K/uL (1.8-7.7); NEUTROPHILS % (AUTO) 71.4 % (40.0-77.0); PLATELET COUNT (AUTO) 439 K/uL (130-400); RED BLOOD CELL COUNT(AUTO) 4.39 MIL/uL (4.50-6.20); RED CELL DISTRIBUTION WIDTH 12.5 % (11.0-15.5); WHITE BLOOD COUNT (AUTO) 11.4 K/uL (4.8-10.8)
[2024-12-01 07:31] LABS: HEMOGLOBIN A1C 12.5 % (4.0-6.0)
[2024-12-01 07:34] LABS: ALBUMIN 2.2 g/dL (3.5-5.0); BILIRUBIN,TOTAL 0.3 mg/dL (0.2-1.0); CREATININE 0.8 mg/dL (0.5-1.3); POTASSIUM 4.2 mmol/L (3.5-5.1); THYROID STIMULATING HORMONE 0.72 uIU/mL (0.36-3.74); TOTAL PROTEIN, SERUM 7.1 g/dL (6.0-8.3)
[2024-12-01 07:37] LABS: % IRON SATURATION 9.1 % (30-44)
[2024-12-01 07:40] LABS: B-TYPE NATRIURETIC PEPTIDE 1020 pg/mL (0-100)
--- NOTE | 2024-12-01 07:47 | HMCIMG ---
PORTABLE CHEST RADIOGRAPH INDICATION: CHEST PAIN COMPARISON: None FINDINGS: shelter monitor leads overlie the field of view. Heart size is normal. The pulmonary vascularity and flynn appear normal. Extensive left lower lung greater than right lower lung coalescent opacities. No significant pleural effusion noted. No pneumothorax detected. IMPRESSION: Extensive left greater than right lower lung pneumonia. Follow-up chest radiograph is advised in order to ensure resolution.
[2024-12-01] MEDS: ASPIRIN 81 MG EC TAB PO SCH (08:47)
[2024-12-01] MEDS: furoSEMIDE 20MG VIAL IV SCH ×2 (08:48→11:35)
[2024-12-01] MEDS: ATENOLOL 50 MG TABLET PO SCH (08:48)
[2024-12-01] MEDS: FAMOTIDINE 20MG TAB PO SCH (08:48)
[2024-12-01] MEDS: ENOXAPARIN SODIUM 30 MG/0.3 ML SQ SCH (08:49)
[2024-12-01] MEDS: atorVAStatin 10 MG TABLET PO SCH (08:49)
[2024-12-01] MEDS: INSULIN humuLIN R 100 UNIT/ML 3ML SQ SCH (08:51)
[2024-12-01] MEDS: cloPIDOgrel 300MG TAB ONE (09:35)
[2024-12-01] MEDS: cloPIDOgrel 300MG TAB PO ONE (09:46)
[2024-12-01] MEDS: cefTRIAXone 1G VIAL IVPB SCH (09:48)
[2024-12-01] MEDS: HEParin 25,000 UNITS/250ML D5W 250 ML IV SCH (09:52)
[2024-12-01] MEDS: HEParin 25,000 UNITS/250ML D5W 250 ML IV ONE (09:54)
[2024-12-01 09:59] LABS: INR 1.08 (0.85-1.15); PROTHROMBIN TIME 11.4 SEC (9.6-11.6)
[2024-12-01 10:00] LABS: PARTIAL THROMBOPLASTIN TIME 33.3 SEC (26.3-35.5)
--- NOTE | 2024-12-01 10:10 | NUR ---
DR Sandra TAVERAS AT BEDSIDE
[2024-12-01] MEDS ORDERED: IOHEXOL 350 MG/ML 100ML INFUS..BTL IV ONE (10:34)
[2024-12-01] MEDS: SODIUM CHLORIDE 3% FOR INHALATION 4 ML/AMP VIAL.NEB IH ONE ×3 (11:01→21:54)
--- NOTE | 2024-12-01 11:06 | HMCIMG ---
CT ANGIOGRAM OF THE CHEST WITHOUT AND WITH CONTRAST. CT RECONSTRUCTIONS INDICATION: Extensive pneumonia TECHNIQUE: Routine axial images using 3 mm slice thickness were acquired from the lung apices to the bases before and after the intravenous administration of 100 mL of Omnipaque 350 contrast material using the pulmonary embolism protocol. Maximum Intensity Projection imaging in the sagittal and coronal planes were also provided. CT was performed with one or more of the following dose reduction techniques: Automated exposure control, adjustment of the mA and/or kV according to patient size, or use of iterative reconstruction technique. COMPARISON: None FINDINGS: The contrast bolus is of good quality for diagnosis of pulmonary embolism. The heart size is within normal limits without pericardial effusion. Coronary arterial wall calcific plaque noted. The main pulmonary arteries, segmental branches, and visualized subsegmental pulmonary arteries appear normal without intraluminal filling defects. Pulmonary trunk is not enlarged. Trace calcific plaque is present along the aortic arch and thoracic aortic briseno without aneurysmal dilation or dissection. The visible portions of the trachea and airways are patent. Several coalescent aggregates of "ground-glass" opacities scattered throughout both lungs, largest within the inferior left upper lobe, and associated small bilateral pleural effusions with subjacent passive atelectasis. No axillary, hilar, or mediastinal lymphadenopathy detected. Gallbladder is absent. Mild liver contour nodularity. Visible osseous structures are intact. IMPRESSION: 1. Bilateral lung pneumonia and small bilateral pleural effusions with subjacent passive atelectasis, but no evidence for pulmonary embolism. 2. Mild liver contour nodularity for which correlation with liver function tests is recommended. 3. Mild calcific plaque is present along the briseno of the cavernous segments of both internal carotid arteries.
--- NOTE | 2024-12-01 11:11 | CONS ---
[facility] CARDIOLOGY CONSULTATION NOTE Date Patient Seen: Dec 01, 2024 Time of Visit: 11:04 Reason for Consultation: [Elevated troponin ] History of Present Illness: [ This is a 49-year-old male with past medical history of diabetes, hyperlipidemia and hypertension who presents to the ED for complaints of left-sided chest pain started this morning. Patient described chest pain as pressure associated with diaphoresis,and shortness of breath. Patient reports his condition started by having a dry cough 2 days ago and he started having shortness of breath and unable to lay down because he feels drowning so he started sleeping sitting down in the chair at home for past 2 nights he said and he noticed his legs are swollen also. UDS + amphetamine. 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 Troponin 1732--1675. ECG sinus tachycardia and poor r wave progression. Patient reports he smoke 10 cigarette per day. Patient states he used to drink 12 beers per day but has already quit almost 3 years ago. Labs: WBC 11.7 with negative left shift of neutrophils 77.6, hemoglobin 13.1, hematocrit 39.4 platelet count 462. Sodium 131, potassium 4.5, chloride 95, carbon dioxide 34 glucose 488, ketones 0.2, troponin 1732 to 1661 BNP 1180. ABG pH 7.43, CO2 35, PO2 69.4, bicarb 23 O2 saturation 93.8 base excess -0.5. Influenza type a and B negative SARs COVID negative. Chest x-ray with bilateral pulmonary edema. ] REVIEW OF SYSTEMS CONSTITUTIONAL: Denies fevers, chills, or night sweats. No unintentional weight loss reported. NEUROLOGICAL: Denies headache, amaurosis fugax, motor weakness, sensory deficit, vertigo/spinning sensation, gait abnormalities, or tremors. ENT: No hearing loss, otalgia, otorrhea, rhinitis, rhinorrhea, hoarseness, or sore throat. CARDIOVASCULAR: Complaints of chest pain dyspnea on exertion orthopnea Denies paroxysmal nocturnal dyspnea, palpitations, life-threatening arrhythmias, claudication. PULMONARY: Complaints of shortness of breaths and dry cough Denies phlegm/spu miguel, hemoptysis, pleuritic chest pain. SLEEP: Denies morning headaches, daytime somnolence or napping. Denies difficulty falling asleep, staying asleep, waking from sleep. Denies knowledge of snoring. GASTROINTESTINAL: Denies any type of dysphagia to either liquids or solids. Denies nausea, vomiting, pyrosis, early satiety, abdominal pain, diarrhea, constipation, or changes in stool consistency or caliber. Denies coffee-ground emesis, hematemesis, hematochezia, or melanotic stools. GENITOURINARY: Denies frequency, urgency, nocturia, hematuria or incontinence (Storage/Irritative symptoms.) Low urinary stream, straining to void, urinary intermittency or hesitancy, splitting of the voiding stream, terminal dribbling. ENDOCRINOLOGIC: Denies polyuria, polydipsia, polyphagia or heat/cold intolerances. HEMATOLOGIC: Denies thrombophilia/previous clots, or coagulopathy/bleeding d isorders. ONCOLOGIC: Denies personal history of malignancy. DERMATOLOGIC: Denies rashes or pruritus. PSYCHIATRIC: Denies any suicidal or homicidal ideation. Denies hallucinations. Home Meds: [ ] Current Meds: [ ] Review of Systems: CONST: [No fever, fatigue, or weight changes.] EYES: [No recent vision problems.] ENT: [No congestion, ear pain, or sore throat.] C/V: [No chest pain, palpitations. + edema.] RESP: [+shortness of breath.] GI: [No abdominal pain, nausea, vomiting, constipation, or diarrhea.] : [No incontinence or dysuria.] SKIN: [No rash.] NEURO: [No headache, focal numbness or weakness, dizziness, or seizures.] PSYCH: [No depression or anxiety.] HEME: [No abnormal bruising or bleeding.] LYMPH: [No swollen glands.] Physical Examination: GENERAL: [No acute distress.] HEAD: [Normal with no signs of head trauma.] EYES: [PERRLA, EOMI, conjunctiva and sclera normal.] ENT: [Hearing grossly intact, normal oropharynx.] NECK: [Supple without JVD. There is no tenderness, lymphadenopathy, or masses. No thyromegaly. Normal carotid upstrokes without bruits.] LUNGS: [rales bilaterally] HEART: [Normal rate and rhythm. Normal S1 and S2 without mumurs, gallop or rub.] VASC: [Peripheral pulses +2 bilaterally.] ABD: [Bowel sounds normal, soft, nontender, no masses, no organomegaly. No audible bruits.] : [Not examined] LYMPH: [No lymphadenopathy noted.] EXT: [2+ edema.] SKIN: [No rashes or lesions noted.] NEURO: [Awake, alert, and oriented x3. No focal sensory or strength deficits noted.] Vital Signs (last 8hr) Date Time Temp Pulse Resp B/P (MAP) Pulse Ox O2 Delivery O2 Flow Rate FiO2 12/01/24 11:03 86 20 N/Cannula Low lpm 3.0 12/01/24 11:02 86 20 12/01/24 08:48 112 12/01/24 06:54 114 24 116/77 95 Nasal Cannula* 3 32 12/01/24 06:36 110 24 N/Cannula Low lpm 3.0 12/01/24 06:35 110 24 12/01/24 05:05 114 19 N/Cannula Low lpm 2.0 28 12/01/24 04:20 112 24 118/78 96 Nasal Cannula* 3 32 12/01/24 03:09 119 22 127/85 96 Nasal Cannula* 3 32 Laboratory: [ ] Hematology Labs: Test 12/01/24 07:00 Range/Units White Blood Count 11.4 H 4.8-10.8 K/uL Red Blood Count 4.39 L 4.50-6.20 MIL/uL Hemoglobin 12.6 L 14.0-18.0 g/dL Hematocrit 37.8 L 42-54 % Mean Corpuscular Volume 86.1 79-99 fL Mean Corpuscular Hemoglobin 28.7 27.0-33.0 pg Mean Corpuscular Hemoglobin Concent 33.3 32.0-36.0 g/dL Red Cell Distribution Width 12.5 11.0-15.5 % Platelet Count 439 H 130-400 K/uL Mean Platelet Volume 9.1 7.5-10.5 fL Immature Granulocyte % (Auto) 0.4 0-1 % Neutrophils (%) (Auto) 71.4 40.0-77.0 % Lymphocytes (%) (Auto) 19.7 L 21.0-51.0 % Monocytes (%) (Auto) 7.5 3.0-13.0 % Eosinophils (%) (Auto) 0.6 0.0-8.0 % Basophils (%) (Auto) 0.4 0.0-5.0 % Neutrophils # (Auto) 8.1 H 1.8-7.7 K/uL Lymphocytes # (Auto) 2.2 1.0-4.8 K/uL Monocytes # (Auto) 0.9 0.1-1.0 K/uL Eosinophils # (Auto) 0.07 0.00-0.70 K/uL Basophils # (Auto) 0.05 0.00-0.20 K/uL Absolute Immature Granulocyte (auto 0.05 0-1 K/uL Nucleated Red Blood Cells 0.0 0.0-0.19 % Chemistry Labs: Test 12/01/24 07:00 12/01/24 00:34 11/30/24 23:14 11/30/24 22:24 Range/Units Sodium Level 131 L 136-145 mmol/L Potassium Level 4.2 3.5-5.1 mmol/L Chloride Level 97 L 101-111 mmol/L Carbon Dioxide Level 29 21-32 mmol/L Blood Urea Nitrogen 12 7-18 mg/dL Creatinine 0.8 0.5-1.3 mg/dL Glomerular Filtration Rate Calc 109 >90 mL/min Random Glucose 288 H 70-105 mg/dL Hemoglobin A1c 12.5 H 4.0-6.0 % Estimated Average Glucose (eAG) 312 H 70-126 mg/dL Total Calcium 8.9 8.5-10.1 mg/dL Magnesium Level 2.00 1.80-2.40 mg/dL Iron Level 19 L 65-175 mcg/dL Total Iron Binding Capacity 208 L 250-450 mcg/dL Percent Iron Saturation 9.1 L 30-44 % Total Bilirubin 0.3 0.2-1.0 mg/dL Aspartate Amino Transf (AST/SGOT) 23 10-37 U/L Alanine Aminotransferase (ALT/SGPT) 24 12-78 U/L Alkaline Phosphatase 151 H 50-136 U/L Troponin I High Sensitivity 1675 *H 4-75 ng/L B-Type Natriuretic Peptide 1020 H 0-100 pg/mL Total Protein 7.1 6.0-8.3 g/dL Albumin 2.2 L 3.5-5.0 g/dL Triglycerides Level 81 30-200 mg/dL Cholesterol Level 164 <200 mg/dL LDL Cholesterol 128 H 0-99 mg/dL HDL Cholesterol 30 29-71 mg/dL Thyroid Stimulating Hormone (TSH) 0.72 0.36-3.74 uIU/mL Whole Blood Glucose 445 *H 70-110 MG/DL Bedside Glucose Comment Notified Nurse Whole Blood Ketones Quantitative 0.2 0.0-0.6 mmol/L Total Creatine Kinase 99 21-232 U/L Coagulation Labs: Test 12/01/24 09:42 12/01/24 07:00 Range/Units Prothrombin Time 11.4 9.6-11.6 SEC Prothromb Time International Ratio 1.08 0.85-1.15 Activated Partial Thromboplast Time 33.3 26.3-35.5 SEC D-Dimer Quantitative (PE/DVT) 1191 *H 0-500 ng/mL Diagnostics / Radiology: [Copy/Paste Echos/Imaging Report here] Assessment: [Elevated Trop CHF Amphetamine use ] Plan: [#Elevated Troponin -stable and plateau pattern Trop 1732--1675, trend for total of 3 Trop -likely type II TN, clinically appears to have CHF, amphetamine use -CXR with pulmonary edema -started lasix 20 mg q12h, monitor daily CXR and urine output -BP borderline -started heparin gtt, asa 325 mg x1, asa 81 mg qd and plavix 300 mg x1 -pending 2d echo Thank you for this consult. We will continue to follow along. Vivian Gandhi MD] VIVIAN GANDHI MD Dec 01, 2024 11:11
[2024-12-01] MEDS: DOXYCYCLINE 100MG+NS 250ML 250 ML IV SCH (11:38)
--- NOTE | 2024-12-01 15:01 | HMCSR ---
APPROVED REPORT EXAM: Two-dimensional and M-mode echocardiogram with Doppler and color Doppler. INDICATION ICD: Chest pain R07.9, Shortness of breath 2D Dimensions RVDd3.4 cmLVEF(%)30.2 (>50%)LVEF(%, simp.)29 % IVSd0.5 (0.7-1.1cm)FS(%)14 %LA ESV INDEX (BP)26.77 mL/m2 LVDd5.2 (3.8-5.6cm)LA (2D)4.2 (1.6-4.0cm) PWd0.7 (0.7-1.1cm)Ao Root(2D)2.7 (2.0-3.7cm) IVSs1.0 cmLVOT diam2.2 (1.8-2.4cm) LVDs4.5 (2.5-4.0cm) PWs0.6 cm Deformation Strain Apical 4-6.0 % Apical 2-7.0 % Apical 3-8.0 % Global Strain-7.0 % M-Mode Dimensions EPSS1.6 cm LA (MM)4.2 (1.6-4.0cm) Ao Root(MM)3.1 (2.0-3.7cm) Aortic Valve AoV Vmax1.0 m/Ge Peak GR4.3 mmHgLVOT Vmax0.7 m/s AoV VTI0.2 mAo Mean GR2.9 mmHgLVOT VTI0.11 m MADDISON (VMAX)2.2 cm2AVA (VTI) 2.2 cm2 Mitral Valve MV E Vmax95.5 cm/sDECEL Xeqs213 ms MV A Vmax46.5 cm/sP 1/2 T44 ms E/A ratio2.1MVA (PHT)5.0 cm2 TDI E/E' Oikqsr06.9E/E' Fclvthq83.1 Medial E' Peak V6.00 cm/sLateral E' Peak V5.00 cm/s Tricuspid Valve RAP (EST) 8 mmHgRVSP8.0 mmHg Left Ventricle The left ventricle is normal size. Spontaneous contrast seen in LV Severely reduced GLS -7.0%. Global hypkenisis of the left ventricle wall motion. There is normal left ventricular wall thickness. LVEF is 25-30%. Stage II, diastolic dysfunction. Right Ventricle The right ventricle is normal size. The right ventricular systolic function is normal. Atria The left atrium size is normal. The right atrium size is normal. Aortic Valve The aortic valve is normal in structure. No aortic regurgitation is present. There is no aortic valvu lar stenosis. Mitral Valve The mitral valve is mildly thickened. There is trace to mild mitral valve regurgitation noted. There is no mitral valve stenosis. Tricuspid Valve The tricuspid valve is normal in structure. There is no tricuspid valve regurgitation noted. Pulmonic Valve The pulmonary valve is normal in structure. There is no pulmonic valvular regurgitation. Great Vessels The aortic root is normal in size. The IVC is normal in size and collapses <50% with inspiration. Pericardium Trace pericardial effusion. Other Information Quality : Adequate Conclusion The left ventricle is normal size. Spontaneous contrast seen in LV LVEF is 25-30%. Stage II, diastolic dysfunction. The right ventricle is normal size. The right ventricular systolic function is normal. The left atrium size is normal. The right atrium size is normal. No valvular pathology. Trace pericardial effusion.
[2024-12-01 15:59] LABS: INR 1.08 (0.85-1.15); PROTHROMBIN TIME 11.4 SEC (9.6-11.6)
[2024-12-01 16:01] LABS: PARTIAL THROMBOPLASTIN TIME 56.8 SEC (26.3-35.5)
--- NOTE | 2024-12-01 16:25 | CONS ---
[facility] CONSULTATION NOTE Date Patient Seen: Dec 01, 2024 Time of Visit: 16:21 Supervising Physician: Dr. Troy Collins Reason for Consultation: SOB Primary Care Physician: [ ] Outpatient Specialists: [ ] Inpatient Consults: [ ] PROBLEM LIST: Acute respiratory failure with hypoxia POA Pulmonary edema Bilateral pleural effusions NSTEMI POA Suspected acute CHF POA Uncontrolled diabetes with hyperglycemia POA Normocytic normochromic anemia POA Acute thrombocytosis POA Pseudohyponatremia secondary to hyperglycemia POA Hyperlipidemia POA Nicotine dependence POA Positive amphetamines POA HPI: Patient is a 49-year-old male the past medical history significant for diabetes, hyperlipidemia, and hypertension who was admitted by the primary team for chest pain which initiated this morning. Patient was diaphoretic with shortness of breath at time. Patient advised that he has had two sleep upright in chair at night as it was the only way he feels he is able to catch his breath in his noticed lower extremity swelling over the last several days. 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 Denies any previous lung diagnoses. Further evaluation of the patient's radiographic images shows evidence of pulmonary edema, mild to mode rate bilateral pulmonary effusions as well as infiltrates. Patient is in no acute respiratory distress at the time of visit, however states that he was earlier wearing oxygen because he required, stated that he does have exertional dyspnea. Patient was on Rocephin at this time, we will increase Lasix to 40 mg q.8 hours, pending echocardiogram at this time for further evaluation. Continue on supplemental O2 at this time. Bold Increase Lasix to 40 mg q.8 hours Continue nebulizer treatments Pending echocardiogram Continue supplemental O2 as needed Continue Rocephin Pending Cardiology consultation PAST MEDICAL HX: see above PAST SURGICAL HX: noncontributory SOCIAL HISTORY: No tobacco, ETOH, or illicit drug use Coded Allergies: No Known Allergies (Unverified Allergy, Unknown, 01/03/22) REVIEW OF SYSTEMS: 12 point ROS reviewed with patient. Pertinent positives mentioned above. Otherwise negative. PHYSICAL EXAM: GENERAL: alert, weak, awake oriented x 3 HEENT: EOMI, Sclera non icteric, moist mucosa NECK: Supple, no JVD, trachea midline LUNGS: Clear breath sounds bilaterally. No wheezes HEART: Regular rate and rhythm. Normal S1 and S2, without murmurs ABD: Abdomen soft, nontender. Bowel sounds present EXT: No clubbing cyanosis or edema NEURO: Alert and oriented to person, follows commands Vital Signs (last 8hr) Date Time Temp Pulse Resp B/P (MAP) Pulse Ox O2 Delivery O2 Flow Rate FiO2 12/01/24 15:33 87 20 92/60 97 Room Air* 0 21 12/01/24 11:13 98 16 100/64 97 Room Air* 0 21 12/01/24 11:03 86 20 N/Cannula Low lpm 3.0 12/01/24 11:02 86 20 12/01/24 08:48 112 LABS: Hematology Labs: Test 12/01/24 07:00 Range/Units White Blood Count 11.4 H 4.8-10.8 K/uL Red Blood Count 4.39 L 4.50-6.20 MIL/uL Hemoglobin 12.6 L 14.0-18.0 g/dL Hematocrit 37.8 L 42-54 % Mean Corpuscular Volume 86.1 79-99 fL Mean Corpuscular Hemoglobin 28.7 27.0-33.0 pg Mean Corpuscular Hemoglobin Concent 33.3 32.0-36.0 g/dL Red Cell Distribution Width 12.5 11.0-15.5 % Platelet Count 439 H 130-400 K/uL Mean Platelet Volume 9.1 7.5-10.5 fL Immature Granulocyte % (Auto) 0.4 0-1 % Neutrophils (%) (Auto) 71.4 40.0-77.0 % Lymphocytes (%) (Auto) 19.7 L 21.0-51.0 % Monocytes (%) (Auto) 7.5 3.0-13.0 % Eosinophils (%) (Auto) 0.6 0.0-8.0 % Basophils (%) (Auto) 0.4 0.0-5.0 % Neutrophils # (Auto) 8.1 H 1.8-7.7 K/uL Lymphocytes # (Auto) 2.2 1.0-4.8 K/uL Monocytes # (Auto) 0.9 0.1-1.0 K/uL Eosinophils # (Auto) 0.07 0.00-0.70 K/uL Basophils # (Auto) 0.05 0.00-0.20 K/uL Absolute Immature Granulocyte (auto 0.05 0-1 K/uL Nucleated Red Blood Cells 0.0 0.0-0.19 % Chemistry Labs: Test 12/01/24 13:15 12/01/24 11:29 12/01/24 07:00 12/01/24 00:34 Range/Units Troponin I High Sensitivity 1658 *H 4-75 ng/L Whole Blood Glucose 346 H 70-110 MG/DL Sodium Level 131 L 136-145 mmol/L Potassium Level 4.2 3.5-5.1 mmol/L Chloride Level 97 L 101-111 mmol/L Carbon Dioxide Level 29 21-32 mmol/L Blood Urea Nitrogen 12 7-18 mg/dL Creatinine 0.8 0.5-1.3 mg/dL Glomerular Filtration Rate Calc 109 >90 mL/min Random Glucose 288 H 70-105 mg/dL Hemoglobin A1c 12.5 H 4.0-6.0 % Estimated Average Glucose (eAG) 312 H 70-126 mg/dL Total Calcium 8.9 8.5-10.1 mg/dL Magnesium Level 2.00 1.80-2.40 mg/dL Iron Level 19 L 65-175 mcg/dL Total Iron Binding Capacity 208 L 250-450 mcg/dL Percent Iron Saturation 9.1 L 30-44 % Total Bilirubin 0.3 0.2-1.0 mg/dL Aspartate Amino Transf (AST/SGOT) 23 10-37 U/L Alanine Aminotransferase (ALT/SGPT) 24 12-78 U/L Alkaline Phosphatase 151 H 50-136 U/L B-Type Natriuretic Peptide 1020 H 0-100 pg/mL Total Protein 7.1 6.0-8.3 g/dL Albumin 2.2 L 3.5-5.0 g/dL Triglycerides Level 81 30-200 mg/dL Cholesterol Level 164 <200 mg/dL LDL Cholesterol 128 H 0-99 mg/dL HDL Cholesterol 30 29-71 mg/dL Thyroid Stimulating Hormone (TSH) 0.72 0.36-3.74 uIU/mL Bedside Glucose Comment Notified Nurse Test 11/30/24 23:14 11/30/24 22:24 Range/Units Whole Blood Ketones Quantitative 0.2 0.0-0.6 mmol/L Total Creatine Kinase 99 21-232 U/L Coagulation Labs: Test 12/01/24 15:41 12/01/24 07:00 Range/Units Prothrombin Time 11.4 9.6-11.6 SEC Prothromb Time International Ratio 1.08 0.85-1.15 Activated Partial Thromboplast Time 56.8 #H 26.3-35.5 SEC D-Dimer Quantitative (PE/DVT) 1191 *H 0-500 ng/mL DIAGNOSTICS / RADIOLOGY RESULTS: [ ] PLAN NEURO: Minimize central acting medications as possible. Maintain fall precautions, adequate lighting during the day PULMONARY: Supplemental 02 as needed. Maintain aspiration precautions at all times CARDIOVASCULAR: Follow hemodynamics. Vital signs per facility protocol GI & NUTRITION: Continue with nutritional support. Continue stool softeners and laxatives as needed. KIDNEYS & ELECTROLYTES: Strict monitoring of intake, output and overall fluid balance. Avoid nephrotoxic medications to the extent possible. Medications to be dosed according to renal function. Monitor electrolytes and replace as needed ENDOCRINE: Maintain blood glucose between 100-180 at all times. Hypoglycemia protocol in place INFECTIOUS DISEASE: Trend temperature, WBC and procalcitonin level Follow cultures, deescalate antibiotics as soon as possible. Panculture if new onset fever ONCOLOGY/HEMATOLOGY/COAGULATION: Monitor for s/s of bleeding Monitor hemoglobin, coagulation studies as needed SKIN: Pressure ulcer prevention per facility protocol Specialty mattress ORTHO/REHAB: Continue PT/OT Prophylaxis: Continue GI and DVT prophylaxis Code Status: Full Resuscitation Disposition: TBD Other: Total patient care time exceeds 35 minutes excluding all procedures. NIKI PALACIOS Dec 01, 2024 16:25
[2024-12-01] MEDS: furoSEMIDE 40MG VIAL IV SCH (16:44)
[2024-12-01] MEDS: acetaMINOPHEN 325 MG TAB PO PRN (20:18)
[2024-12-01] MEDS: INSULIN GLARgine 100 UNITS/ML 10 ML VIAL SQ SCH (20:18)
--- NOTE | 2024-12-01 20:57 | NUR ---
Transfer 229 Report given to JAYLEN Velez all questions. Patient awake, alert, and denies any chest pain or shortness of breath. patient placed on tele pack and transferred to room 229. at bedside.
[2024-12-02] VITALS (15 sets, daily range): BP systolic 103–115; BP diastolic 60–78; PULSE 75–114; RESP 18–28; TEMP 97.4–99.3; O2SAT 94–100
[2024-12-02] MEDS: guaiFENesin-DM 200/20MG 10ML PO PRN (02:24)
[2024-12-02 05:02] LABS: HEMATOCRIT 36.4 % (42-54); MEAN CORPUSCULAR HGB CONC 33.2 g/dL (32.0-36.0); MEAN CORPUSCULAR VOLUME 87.3 fL (79-99); RED BLOOD CELL COUNT(AUTO) 4.17 MIL/uL (4.50-6.20); RED CELL DISTRIBUTION WIDTH 12.6 % (11.0-15.5); WHITE BLOOD COUNT (AUTO) 14.6 K/uL (4.8-10.8)
[2024-12-02 05:32] LABS: BILIRUBIN,TOTAL 0.5 mg/dL (0.2-1.0); CREATININE 1.1 mg/dL (0.5-1.3); MAGNESIUM 1.8 mg/dL (1.80-2.40); POTASSIUM 3.7 mmol/L (3.5-5.1)
[2024-12-02] MEDS: MAGNESIUM 2GM PREMIX 50ML 50 ML IV PRN (05:57)
--- NOTE | 2024-12-02 08:17 | PN ---
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 He appeared moderate distress. Sinus tachycardic 114 beats per minute respiratory rate of 24 saturating 94% with 3 L via nasal cannula and afebrile. Patient had urine output of 1.9 L in the last 24 hours with a balance of-1.5 L. he is currently on Lasix 40 mg q.8 hours IV. Chest x-ray shows [place] pulmonary edema with multifocal bilateral infiltrates. ABG was done with results of pH of 7.45 pCO2 of 32 PO2 of 63 and bicarb 21.8 consistent with respiratory alkalosis from over breathing due to hypoxemia. Place patient on Lasix drip 5 milligrams/hour and CPAP machine with pressure support of 10 FiO2 of 50%. Patient tolerating it well. WBCs of 14.6 H&H of 12.1/36.4. On chemistries sodium 131 chloride 95 kidneys are doing well creatinine 1.0 GFR of 93 glucose has been elevated 272 mg/dL this morning added Lantus. Due to severe pneumoniae in the history of smoking change Rocephin to Zosyn to cover for Pseudomonas. Added Solu-Medrol 40 [address]i.d. for severe pneumonia. Dr Gandhi personal care worker updated and we will continue to follow cardiology recommendations. Patient to continue with aspirin, beta simón, statin therapy per ACS guidelines and he continues currently on a heparin drip For NSTEMI. I have updated patient and who was at the bedside with current clinical findings and plan of care. Both verbalized understanding and answered all their questions. They are both in agreement with plan of care. REVIEW OF SYSTEMS: 12 point ROS reviewed with patient. Pertinent positives mentioned above. Otherwise negative. PHYSICAL EXAM: GENERAL: alert, weak, awake oriented x 3 HEENT: EOMI, Sclera non icteric, moist mucosa NECK: Supple, no JVD, trachea midline LUNGS: Diminished breath sounds bilaterally. No wheezes HEART: Regular rate and rhythm. Normal S1 and S2, without murmurs ABD: Abdomen soft, nontender. Bowel sounds present EXT: No clubbing cyanosis or edema, + 1 pitting edema to LLE, NEURO: Alert and oriented to person, follows commands Vital Signs (last 8hr) Date Time Temp Pulse Resp B/P (MAP) Pulse Ox O2 Delivery O2 Flow Rate FiO2 12/02/24 08:07 111 12/02/24 07:32 99.3 111 18 115/74 94 Nasal Cannula 2.0 12/02/24 06:43 97 24 12/02/24 06:42 75 24 N/Cannula Low lpm 3.0 12/02/24 04:00 97.3 114 22 108/72 94 Nasal Cannula 2.0 LABS: Hematology Labs: Test 12/02/24 04:48 12/01/24 07:00 Range/Units White Blood Count 14.6 #H 4.8-10.8 K/uL Red Blood Count 4.17 L 4.50-6.20 MIL/uL Hemoglobin 12.1 L 14.0-18.0 g/dL Hematocrit 36.4 L 42-54 % Mean Corpuscular Volume 87.3 79-99 fL Mean Corpuscular Hemoglobin 29.0 27.0-33.0 pg Mean Corpuscular Hemoglobin Concent 33.2 32.0-36.0 g/dL Red Cell Distribution Width 12.6 11.0-15.5 % Platelet Count 441 H 130-400 K/uL Mean Platelet Volume 9.1 7.5-10.5 fL Nucleated Red Blood Cells 0.0 0.0-0.19 % Immature Granulocyte % (Auto) 0.4 0-1 % Neutrophils (%) (Auto) 71.4 40.0-77.0 % Lymphocytes (%) (Auto) 19.7 L 21.0-51.0 % Monocytes (%) (Auto) 7.5 3.0-13.0 % Eosinophils (%) (Auto) 0.6 0.0-8.0 % Basophils (%) (Auto) 0.4 0.0-5.0 % Neutrophils # (Auto) 8.1 H 1.8-7.7 K/uL Lymphocytes # (Auto) 2.2 1.0-4.8 K/uL Monocytes # (Auto) 0.9 0.1-1.0 K/uL Eosinophils # (Auto) 0.07 0.00-0.70 K/uL Basophils # (Auto) 0.05 0.00-0.20 K/uL Absolute Immature Granulocyte (auto 0.05 0-1 K/uL Chemistry Labs: Test 12/02/24 07:52 12/02/24 05:28 12/02/24 04:48 12/01/24 13:15 Range/Units Whole Blood Glucose 267 H 70-110 MG/DL Bedside Glucose Comment Notified Nurse Sodium Level 130 L 136-145 mmol/L Potassium Level 3.7 3.5-5.1 mmol/L Chloride Level 94 L 101-111 mmol/L Carbon Dioxide Level 28 21-32 mmol/L Blood Urea Nitrogen 17 7-18 mg/dL Creatinine 1.1 0.5-1.3 mg/dL Glomerular Filtration Rate Calc 83 >90 mL/min Random Glucose 304 H 70-105 mg/dL Total Calcium 8.6 8.5-10.1 mg/dL Magnesium Level 1.80 1.80-2.40 mg/dL Total Bilirubin 0.5 # 0.2-1.0 mg/dL Aspartate Amino Transf (AST/SGOT) 23 10-37 U/L Alanine Aminotransferase (ALT/SGPT) 23 12-78 U/L Alkaline Phosphatase 142 H 50-136 U/L Total Protein 7.0 6.0-8.3 g/dL Albumin 2.0 L 3.5-5.0 g/dL Troponin I High Sensitivity 1658 *H 4-75 ng/L Test 12/01/24 07:00 11/30/24 23:14 11/30/24 22:24 Range/Units Hemoglobin A1c 12.5 H 4.0-6.0 % Estimated Average Glucose (eAG) 312 H 70-126 mg/dL Iron Level 19 L 65-175 mcg/dL Total Iron Binding Capacity 208 L 250-450 mcg/dL Percent Iron Saturation 9.1 L 30-44 % B-Type Natriuretic Peptide 1020 H 0-100 pg/mL Triglycerides Level 81 30-200 mg/dL Cholesterol Level 164 <200 mg/dL LDL Cholesterol 128 H 0-99 mg/dL HDL Cholesterol 30 29-71 mg/dL Thyroid Stimulating Hormone (TSH) 0.72 0.36-3.74 uIU/mL Whole Blood Ketones Quantitative 0.2 0.0-0.6 mmol/L Total Creatine Kinase 99 21-232 U/L Coagulation Labs: Test 12/01/24 21:50 12/01/24 15:41 12/01/24 07:00 Range/Units Activated Partial Thromboplast Time 52.6 H 26.3-35.5 SEC Prothrombin Time 11.4 9.6-11.6 SEC Prothromb Time International Ratio 1.08 0.85-1.15 D-Dimer Quantitative (PE/DVT) 1191 *H 0-500 ng/mL DIAGNOSTICS / RADIOLOGY RESULTS: [ ] Signed PATIENT: LAUREN GOEL JR MR#: [id number] : 1975 SEX: M AGE: 49 LOCATION: 2AH ORDER STATUS: ADM IN REPORT#: [id number] SERVICE 9 REASON: chf ORDERING PHYSICIAN: FIONA GANDHI MD PROCEDURE: CXR1VW - CHEST 1VW PORTABLE CHEST RADIOGRAPH INDICATION: chf COMPARISON: 12/01/2024 CTA chest FINDINGS/IMPRESSION: Stable heart size without pulmonary vascular congestion. Worsening extensive bilateral lung pneumonia and associated trace bilateral pleural effusions suspected, without pneumothorax. DICTATED BY: JOSÉ LUIS GRAY MD DATE: 12/02/24 1104 ELECTRONICALLY SIGNED BY: JOSÉ LUIS GRAY MD DATE: 12/02/24 1108 Signed PATIENT: LAUREN GOEL JR MR#: [id number] : 1975 SEX: M AGE: 49 LOCATION: EDHIP ORDER 0931 STATUS: ADM IN REPORT#: [id number] SERVICE 0929 REASON: extensive pneumonia ORDERING PHYSICIAN: DAMION LAZAR MD PROCEDURE: [facility] PE - CT CHEST PE PROTOCOL WWO CONT CT ANGIOGRAM OF THE CHEST WITHOUT AND WITH CONTRAST. CT RECONSTRUCTIONS INDICATION: Extensive pneumonia TECHNIQUE: Routine axial images using 3 mm slice thickness were acquired from the lung apices to the bases before and after the intravenous administration of 100 mL of Omnipaque 350 contrast material using the pulmonary embolism protocol. Maximum Intensity Projection imaging in the sagittal and coronal planes were also provided. CT was performed with one or more of the following dose reduction techniques: Automated exposure control, adjustment of the mA and/or kV according to patient size, or use of iterative reconstruction technique. COMPARISON: None FINDINGS: The contrast bolus is of good quality for diagnosis of pulmonary embolism. The heart size is within normal limits without pericardial effusion. Coronary arterial wall calcific plaque noted. The main pulmonary arteries, segmental branches, and visualized subsegmental pulmonary arteries appear normal without intraluminal filling defects. Pulmonary trunk is not enlarged. Trace calcific plaque is present along the aortic arch and thoracic aortic briseno without aneurysmal dilation or dissection. The visible portions of the trachea and airways are patent. Several coalescent aggregates of "ground-glass" opacities scattered throughout both lungs, largest within the inferior left upper lobe, and associated small bilateral pleural effusions with subjacent passive atelectasis. No axillary, hilar, or mediastinal lymphadenopathy detected. Gallbladder is absent. Mild liver contour nodularity. Visible osseous structures are intact. IMPRESSION: 1. Bilateral lung pneumonia and small bilateral pleural effusions with subjacent passive atelectasis, but no evidence for pulmonary embolism. 2. Mild liver contour nodularity for which correlation with liver function tests is recommended. 3. Mild calcific plaque is present along the briseno of the cavernous segments of both internal carotid arteries. DICTATED BY: JOSÉ LUIS GRAY MD DATE: 12/01/241100 ELECTRONICALLY SIGNED BY: JOSÉ LUIS GRAY MD DATE: 12/01/24 1106 Signed PATIENT: LAUREN GOEL JR MR#: [id number] : 1975 SEX: M AGE: 49 LOCATION: EDHIP ORDER 012 STATUS: ADM IN REPORT#: [id number] SERVICE 0103 REASON: cp and sob ORDERING PHYSICIAN: FRANCY ESTRADA PROCEDURE: ECHO CMP - ECHO 2-D COMPLETE APPROVED REPORT EXAM: Two-dimensional and M-mode echocardiogram with Doppler and color Doppler. INDICATION ICD: Chest pain R07.9, Shortness of breath 2D Dimensions RVDd 3.4 cm LVEF(%) 30.2 (>50%) LVEF(%, simp.) 29 % IVSd 0.5 (0.7-1.1cm) FS(%) 14 % LA ESV INDEX (BP) 26.77 mL/m2 LVDd 5.2 (3.8-5.6cm) LA (2D) 4.2 (1.6-4.0cm) PWd 0.7 (0.7-1.1cm) Ao Root(2D) 2.7 (2.0-3.7cm) IVSs 1.0 cm LVOT diam 2.2 (1.8-2.4cm) LVDs 4.5 (2.5-4.0cm) PWs 0.6 cm Deformation Strain Apical 4 -6.0 % Apical 2 -7.0 % Apical 3 -8.0 % Global Strain -7.0 % M-Mode Dimensions EPSS 1.6 cm LA (MM) 4.2 (1.6-4.0cm) Ao Root(MM) 3.1 (2.0-3.7cm) Aortic Valve AoV Vmax 1.0 m/s Ao Peak GR 4.3 mmHg LVOT Vmax 0.7 m/s AoV VTI 0.2 m Ao Mean GR 2.9 mmHg LVOT VTI 0.11 m MADDISON (VMAX) 2.2 cm2 MADDISON (VTI) 2.2 cm2 Mitral Valve MV E Vmax 95.5 cm/s DECEL Time 124 ms MV A Vmax 46.5 cm/s P 1/2 T 44 ms E/A ratio 2.1 MVA (PHT) 5.0 cm2 TDI E/E' Medial 15.9 E/E' Lateral 19.1 Medial E' Peak V 6.00 cm/s Lateral E' Peak V 5.00 cm/s Tricuspid Valve RAP (EST) 8 mmHg RVSP 8.0 mmHg Left Ventricle The left ventricle is normal size. Spontaneous contrast seen in LV Severely reduced GLS -7.0%. Global hypkenisis of the left ventricle wall motion. There is normal left ventricular wall thickness. LVEF is 25-30%. Stage II, diastolic dysfunction. Right Ventricle The right ventricle is normal size. The right ventricular systolic function is normal. Atria The left atrium size is normal. The right atrium size is normal. Aortic Valve The aortic valve is normal in structure. No aortic regurgitation is present. There is no aortic valvular stenosis. Mitral Valve The mitral valve is mildly thickened. There is trace to mild mitral valve regurgitation noted. There is no mitral valve stenosis. Tricuspid Valve The tricuspid valve is normal in structure. There is no tricuspid valve regurgitation noted. Pulmonic Valve The pulmonary valve is normal in structure. There is no pulmonic valvular regurgitation. Great Vessels The aortic root is normal in size. The IVC is normal in size and collapses <50% with inspiration. Pericardium Trace pericardial effusion. Other Information Quality : Adequate Conclusion The left ventricle is normal size. Spontaneous contrast seen in LV LVEF is 25-30%. Stage II, diastolic dysfunction. The right ventricle is normal size. The right ventricular systolic function is normal. The left atrium size is normal. The right atrium size is normal. No valvular pathology. Trace pericardial effusion. DICTATED BY: FIONA GANDHI MD DATE: 12/01/24 1122 ELECTRONICALLY SIGNED BY: FIONA GANDHI MD DATE: 12/01/24 1501 PLAN IV ABX with zosyn and doxy stop lasix drip continue with lasix IVP Heparin gtt cpap cardiac monitoring dc duoneb start atrovent nebs prn Solu-Medrol 40mg ivp bid for severe pneumonia, wean as possible now 20mg IVP q8hrs hepatitis panel follow cardiology recommendations currently on heparin gtt -Arrange outpatient pulmonology referral for sleep study, PFT and follow-up management upon discharge singulair protonix for GI PPX fc placement HIV test with reflex negative monito resp status closely, repeat abg if decline in resp status he is high risk for decompensations. NEURO: Minimize central acting medications as possible. Maintain fall precautions, adequate lighting during the day PULMONARY: Supplemental 02 as needed. Maintain aspiration precautions at all times CARDIOVASCULAR: Follow hemodynamics. Vital signs per facility protocol GI & NUTRITION: Continue with nutritional support. Continue stool softeners and laxatives as needed. KIDNEYS & ELECTROLYTES: Strict monitoring of intake, output and overall fluid balance. Avoid nephrotoxic medications to the extent possible. Medications to be dosed according to renal function. Monitor electrolytes and replace as needed ENDOCRINE: Maintain blood glucose between 100-180 at all times. Hypoglycemia protocol in place INFECTIOUS DISEASE: Trend temperature, WBC and procalcitonin level Follow cultures, deescalate antibiotics as soon as possible. Panculture if new onset fever ONCOLOGY/HEMATOLOGY/COAGULATION: Monitor for s/s of bleeding Monitor hemoglobin, coagulation studies as needed SKIN: Pressure ulcer prevention per facility protocol Specialty mattress ORTHO/REHAB: Continue PT/OT Prophylaxis: Continue GI and DVT prophylaxis Code Status: Full Resuscitation Disposition: TBD Other: Total patient care time exceeds 35 minutes excluding all procedures. [facility]A [facility] Dec 02, 2024 08:17
[2024-12-02] MEDS: furoSEMIDE 40MG VIAL IV ONE (08:23)
--- NOTE | 2024-12-02 08:33 | PN ---
[facility] CARDIOLOGY PROGRESS NOTE Date Patient Seen: Dec 02, 2024 Time of Visit: 08:27 Interval History: [2d echo with reduced LVEF 25-30%, grade II diastolic function. Urine output 1900 cc/24 hours ] Physical Examination: GENERAL: [No acute distress.] HEAD: [Normal with no signs of head trauma.] EYES: [PERRLA, EOMI, conjunctiva and sclera normal.] ENT: [Hearing grossly intact, normal oropharynx.] NECK: [Supple without JVD. There is no tenderness, lymphadenopathy, or masses. No thyromegaly. Normal carotid upstrokes without bruits.] LUNGS: [rales bilaterally] HEART: [Normal rate and rhythm. Normal S1 and S2 without mumurs, gallop or rub.] VASC: [Peripheral pulses +2 bilaterally.] ABD: [Bowel sounds normal, soft, nontender, no masses, no organomegaly. No audible bruits.] : [Not examined] LYMPH: [No lymphadenopathy noted.] EXT: [2+ edema.] SKIN: [No rashes or lesions noted.] NEURO: [Awake, alert, and oriented x3. No focal sensory or strength deficits noted.] Laboratory: [ ] Hematology Labs: Test 12/02/24 04:48 12/01/24 07:00 Range/Units White Blood Count 14.6 #H 4.8-10.8 K/uL Red Blood Count 4.17 L 4.50-6.20 MIL/uL Hemoglobin 12.1 L 14.0-18.0 g/dL Hematocrit 36.4 L 42-54 % Mean Corpuscular Volume 87.3 79-99 fL Mean Corpuscular Hemoglobin 29.0 27.0-33.0 pg Mean Corpuscular Hemoglobin Concent 33.2 32.0-36.0 g/dL Red Cell Distribution Width 12.6 11.0-15.5 % Platelet Count 441 H 130-400 K/uL Mean Platelet Volume 9.1 7.5-10.5 fL Nucleated Red Blood Cells 0.0 0.0-0.19 % Immature Granulocyte % (Auto) 0.4 0-1 % Neutrophils (%) (Auto) 71.4 40.0-77.0 % Lymphocytes (%) (Auto) 19.7 L 21.0-51.0 % Monocytes (%) (Auto) 7.5 3.0-13.0 % Eosinophils (%) (Auto) 0.6 0.0-8.0 % Basophils (%) (Auto) 0.4 0.0-5.0 % Neutrophils # (Auto) 8.1 H 1.8-7.7 K/uL Lymphocytes # (Auto) 2.2 1.0-4.8 K/uL Monocytes # (Auto) 0.9 0.1-1.0 K/uL Eosinophils # (Auto) 0.07 0.00-0.70 K/uL Basophils # (Auto) 0.05 0.00-0.20 K/uL Absolute Immature Granulocyte (auto 0.05 0-1 K/uL Chemistry Labs: Test 12/02/24 07:52 12/02/24 05:28 12/02/24 04:48 12/01/24 13:15 Range/Units Whole Blood Glucose 267 H 70-110 MG/DL Bedside Glucose Comment Notified Nurse Sodium Level 130 L 136-145 mmol/L Potassium Level 3.7 3.5-5.1 mmol/L Chloride Level 94 L 101-111 mmol/L Carbon Dioxide Level 28 21-32 mmol/L Blood Urea Nitrogen 17 7-18 mg/dL Creatinine 1.1 0.5-1.3 mg/dL Glomerular Filtration Rate Calc 83 >90 mL/min Random Glucose 304 H 70-105 mg/dL Total Calcium 8.6 8.5-10.1 mg/dL Magnesium Level 1.80 1.80-2.40 mg/dL Total Bilirubin 0.5 # 0.2-1.0 mg/dL Aspartate Amino Transf (AST/SGOT) 23 10-37 U/L Alanine Aminotransferase (ALT/SGPT) 23 12-78 U/L Alkaline Phosphatase 142 H 50-136 U/L Total Protein 7.0 6.0-8.3 g/dL Albumin 2.0 L 3.5-5.0 g/dL Troponin I High Sensitivity 1658 *H 4-75 ng/L Test 12/01/24 07:00 11/30/24 23:14 11/30/24 22:24 Range/Units Hemoglobin A1c 12.5 H 4.0-6.0 % Estimated Average Glucose (eAG) 312 H 70-126 mg/dL Iron Level 19 L 65-175 mcg/dL Total Iron Binding Capacity 208 L 250-450 mcg/dL Percent Iron Saturation 9.1 L 30-44 % B-Type Natriuretic Peptide 1020 H 0-100 pg/mL Triglycerides Level 81 30-200 mg/dL Cholesterol Level 164 <200 mg/dL LDL Cholesterol 128 H 0-99 mg/dL HDL Cholesterol 30 29-71 mg/dL Thyroid Stimulating Hormone (TSH) 0.72 0.36-3.74 uIU/mL Whole Blood Ketones Quantitative 0.2 0.0-0.6 mmol/L Total Creatine Kinase 99 21-232 U/L Coagulation Labs: Test 12/01/24 21:50 12/01/24 15:41 12/01/24 07:00 Range/Units Activated Partial Thromboplast Time 52.6 H 26.3-35.5 SEC Prothrombin Time 11.4 9.6-11.6 SEC Prothromb Time International Ratio 1.08 0.85-1.15 D-Dimer Quantitative (PE/DVT) 1191 *H 0-500 ng/mL Diagnostics / Radiology: [Copy/Paste Echos/Imaging Report here] Impression and Plan: [Elevated Trop combined systolic and grade II diastolic heart failure, LVEF 25-30% Amphetamine use ] Plan: [#Elevated Troponin in setting of newly diagnosed HFrEF -stable and plateau pattern Trop 1732--1661--1782--1675--1658. No need to trend enzymes. - amphetamine use -CXR with pulmonary edema -started lasix 20 mg q12h, Cr stable at 1.1 but hyponatremia, increased lasix IV 40 mg q8h -Urine output 1.9 L/24 hrs monitor daily CXR -BP borderline -started heparin gtt, asa 325 mg x1, asa 81 mg qd and plavix 300 mg x1 #HFrEF LVEF 25-30% -likely driven by amphetamine -BP wont tolerate optimal guideline directed therapy for heart failure -c/w diuresis -unknown etiology, will plan for inpatient vs outpatient CCTA Thank you for this consult. We will continue to follow along. Vivian Gandhi MD] ] VIVIAN GANDHI MD Dec 02, 2024 08:33
--- NOTE | 2024-12-02 09:54 | PN ---
[facility] PROGRESS NOTE Date of Service: Dec 02, 2024 Time of Service: 09:47 SUBJECTIVE: This is a 49-year-old male with past medical history of diabetes, hyperlipidemia and hypertension who presented to the ED for complaints of left-sided chest pain. Labs in the ER WBC 11.7 with negative left shift of neutrophils 77.6, hemoglobin 13.1, hematocrit 39.4 platelet count 462. Sodium 131, potassium 4.5, chloride 95, carbon dioxide 34 glucose 488, ketones 0.2, troponin 1732 to 1661 BNP 1180. EKG result revealed sinus tachycardia heart rate 118 with probable anterior infarct age indeterminate. Toxicology screen positive for amphetamines. Patient seen and examined, still mildy tachycardic. During my visit patient on CPAP, alert oriented x3, following commands, admits to feeling less shortness a breath compared to time of admission. He has been started on Lasix drip. Also on heparin drip. Echocardiogram showed LVEF 25- Cardiology input noted and appreciated. Plan for inpatient vs outpatient CCTA. REVIEW OF SYSTEMS CONSTITUTIONAL: Denies fevers, chills, or night sweats. No unintentional weight loss reported. NEUROLOGICAL: Denies headache, amaurosis fugax, motor weakness, sensory deficit, vertigo/spinning sensation, gait abnormalities, or tremors. ENT: No hearing loss, otalgia, otorrhea, rhinitis, rhinorrhea, hoarseness, or sore throat. CARDIOVASCULAR: Complaints of chest pain dyspnea on exertion orthopnea Denies paroxysmal nocturnal dyspnea, palpitations, life-threatening arrhythmias, claudication. PULMONARY: Complaints of shortness of breaths and dry cough Denies phlegm/sputum, hemoptysis, pleuritic chest pain. SLEEP: Denies morning headaches, daytime somnolence or napping. Denies difficulty falling asleep, staying asleep, waking from sleep. Denies knowledge of snoring. GASTROINTESTINAL: Denies any type of dysphagia to either liquids or solids. Denies nausea, vomiting, pyrosis, early satiety, abdominal pain, diarrhea, constipation, or changes in stool consistency or caliber. Denies coffee-ground emesis, hematemesis, hematochezia, or melanotic stools. GENITOURINARY: Denies frequency, urgency, nocturia, hematuria or incontinence (Storage/Irritative symptoms.) Low urinary stream, straining to void, urinary intermittency or hesitancy, splitting of the voiding stream, terminal dribbling. ENDOCRINOLOGIC: Denies polyuria, polydipsia, polyphagia or heat/cold intolerances. HEMATOLOGIC: Denies thrombophilia/previous clots, or coagulopathy/bleeding disorders. ONCOLOGIC: Denies personal history of malignancy. DERMATOLOGIC: Denies rashes or pruritus. PSYCHIATRIC: Denies any suicidal or homicidal ideation. Denies hallucinations. PHYSICAL EXAM GENERAL APPEARANCE: The patient is awake, alert, and oriented, in no acute cardiopulmonary distress. NEUROLOGICAL: Cranial nerves II-XII grossly intact. Motor is 5/5 in bilateral upper and lower extremities proximal to distal. No sensory deficits. HEENT: Face is symmetric. Pupils are equal and reactive. Extraocular movements are intact. NECK: Supple. No JVD. No thyromegaly. No submental, submandibular, pre- /postauricular, occipital or supraclavicular lymphadenopathy. CHEST: Normal chest expansion. Telemetry. LUNGS: Crackles to the lower bases on both lung correa per auscultation CARDIOVASCULAR: Tachycardic and Regular. S1 and S2 normal. No appreciable rubs, murmurs or gallops. ABDOMEN: Soft, nontender, and nondistended. There is no rebound, voluntary guarding, or rigidity. : Deferred. No Lincoln. EXTREMITIES: 2+ edema to bilateral lower extremities Good capillary refill. SKIN: No skin breakdown. Vital Signs (last 8hr) Date Time Temp Pulse Resp B/P (MAP) Pulse Ox O2 Delivery O2 Flow Rate FiO2 12/02/24 08:07 111 12/02/24 07:32 99.3 111 18 115/74 94 Nasal Cannula 2.0 12/02/24 06:43 97 24 12/02/24 06:42 75 24 N/Cannula Low lpm 3.0 12/02/24 04:00 97.3 114 22 108/72 94 Nasal Cannula 2.0 LABS: Laboratory: Test 12/02/24 07:52 12/02/24 05:28 12/02/24 04:48 12/01/24 21:50 Range/Units Whole Blood Glucose 267 H 70-110 MG/DL Bedside Glucose Comment Notified Nurse White Blood Count 14.6 #H 4.8-10.8 K/uL Red Blood Count 4.17 L 4.50-6.20 MIL/uL Hemoglobin 12.1 L 14.0-18.0 g/dL Hematocrit 36.4 L 42-54 % Mean Corpuscular Volume 87.3 79-99 fL Mean Corpuscular Hemoglobin 29.0 27.0-33.0 pg Mean Corpuscular Hemoglobin Concent 33.2 32.0-36.0 g/dL Red Cell Distribution Width 12.6 11.0-15.5 % Platelet Count 441 H 130-400 K/uL Mean Platelet Volume 9.1 7.5-10.5 fL Nucleated Red Blood Cells 0.0 0.0-0.19 % Sodium Level 130 L 136-145 mmol/L Potassium Level 3.7 3.5-5.1 mmol/L Chloride Level 94 L 101-111 mmol/L Carbon Dioxide Level 28 21-32 mmol/L Blood Urea Nitrogen 17 7-18 mg/dL Creatinine 1.1 0.5-1.3 mg/dL Glomerular Filtration Rate Calc 83 >90 mL/min Random Glucose 304 H 70-105 mg/dL Total Calcium 8.6 8.5-10.1 mg/dL Magnesium Level 1.80 1.80-2.40 mg/dL Total Bilirubin 0.5 # 0.2-1.0 mg/dL Aspartate Amino Transf (AST/SGOT) 23 10-37 U/L Alanine Aminotransferase (ALT/SGPT) 23 12-78 U/L Alkaline Phosphatase 142 H 50-136 U/L Total Protein 7.0 6.0-8.3 g/dL Albumin 2.0 L 3.5-5.0 g/dL Activated Partial Thromboplast Time 52.6 H 26.3-35.5 SEC Test 12/01/24 15:41 12/01/24 13:15 12/01/24 11:20 12/01/24 07:00 Range/Units Prothrombin Time 11.4 9.6-11.6 SEC Prothromb Time International Ratio 1.08 0.85-1.15 Troponin I High Sensitivity 1658 *H 4-75 ng/L Group A Streptococcus Rapid negative NEGATIVE Immature Granulocyte % (Auto) 0.4 0-1 % Neutrophils (%) (Auto) 71.4 40.0-77.0 % Lymphocytes (%) (Auto) 19.7 L 21.0-51.0 % Monocytes (%) (Auto) 7.5 3.0-13.0 % Eosinophils (%) (Auto) 0.6 0.0-8.0 % Basophils (%) (Auto) 0.4 0.0-5.0 % Neutrophils # (Auto) 8.1 H 1.8-7.7 K/uL Lymphocytes # (Auto) 2.2 1.0-4.8 K/uL Monocytes # (Auto) 0.9 0.1-1.0 K/uL Eosinophils # (Auto) 0.07 0.00-0.70 K/uL Basophils # (Auto) 0.05 0.00-0.20 K/uL Absolute Immature Granulocyte (auto 0.05 0-1 K/uL D-Dimer Quantitative (PE/DVT) 1191 *H 0-500 ng/mL Hemoglobin A1c 12.5 H 4.0-6.0 % Estimated Average Glucose (eAG) 312 H 70-126 mg/dL Iron Level 19 L 65-175 mcg/dL Total Iron Binding Capacity 208 L 250-450 mcg/dL Percent Iron Saturation 9.1 L 30-44 % B-Type Natriuretic Peptide 1020 H 0-100 pg/mL Triglycerides Level 81 30-200 mg/dL Cholesterol Level 164 <200 mg/dL LDL Cholesterol 128 H 0-99 mg/dL HDL Cholesterol 30 29-71 mg/dL Thyroid Stimulating Hormone (TSH) 0.72 0.36-3.74 uIU/mL Test 12/01/24 00:29 11/30/24 23:14 11/30/24 22:45 11/30/24 22:24 Range/Units Blood Gas Specimen Type Arterial Arterial Blood pH 7.437 7.350-7.450 Arterial Blood Partial Pressure CO2 35 35-48 mmHg Arterial Blood Partial Pressure O2 69.4 L 83.0-108.0 mmHg Arterial Blood HCO3 23.1 21.0-28.0 mmol/L Arterial Blood Oxygen Saturation 93.8 L 94.0-98.0 % Arterial Blood Base Excess -0.5 -2.0-3.0 mmol/L Hemoglobin (Blood Gas) 13.4 L 13.5-17.5 g/dL Sodium (Blood Gas) 129 L 136-145 MMOL/L Bedside Potassium (Blood Gas) 4.1 3.4-4.5 MMOL/L Bedside Chloride (Blood Gas) 97 L 98-107 MMOL/L Bedside Glucose (Blood Gas) 426 H 65-95 MG/DL Bedside Ionized Calcium (Blood Gas) 1.18 1.15-1.33 MMOL/L Bedside Lactic Acid (Blood Gas) 1.12 H 0.36-0.75 MMOL/L Blood Gas Temperature 37.0 35.5-37.0 CELSIUS Blood Gas Flow-by 3.00 0.00-15.00 L/min Blood Gas Vent Mode NC ROOM AIR FiO2 32.0 % Blood Gas Specimen Comment RB RN DOMINIK Urine Color LIGHT-YELLOW YELLOW Urine Appearance CLEAR CLEAR Urine pH 7.0 5.0-8.0 Urine Specific [place] 1.032 H 1.001-1.031 Urine Protein 20 H NEGATIVE mg/dL Urine Glucose (UA) >=1000 H NEGATIVE mg/dL Urine Ketones NEGATIVE NEGATIVE mg/dL Urine Occult Blood +- (TRACE) H NEGATIVE Urine Nitrate NEGATIVE NEGATIVE Urine Bilirubin NEGATIVE NEGATIVE mg/dL Urine Urobilinogen 0.2 0.2-1.0 mg/dL Urine Leukocyte Esterase NEGATIVE NEGATIVE Marcia/uL Urine RBC 2-5 H 0-1 /HPF Urine WBC 0-1 0-1 /HPF Urine Bacteria None None Seen /HPF Whole Blood Ketones Quantitative 0.2 0.0-0.6 mmol/L Urine Opiates Screen NEGATIVE NEGATIVE Urine Barbiturates Screen NEGATIVE NEGATIVE Urine Phencyclidine Screen NEGATIVE NEGATIVE Urine Amphetamines Screen POSITIVE H NEGATIVE Urine Benzodiazepines Screen NEGATIVE NEGATIVE Urine Cocaine Screen NEGATIVE NEGATIVE Urine Marijuana (THC) Screen NEGATIVE NEGATIVE Influenza Type A Antigen Negative For Type A NEGATIVE Influenza Type B Antigen Negative For Type B NEGATIVE SARS-CoV-2, RNA, NAAT NEGATIVE SARS CoV-2 NEGATIVE Total Creatine Kinase 99 21-232 U/L Current Medications Medications (Trade) Dose Ordered Sig/Nasim Route PRN Reason Start Time Stop Time Status Last Admin Dose Admin Acetaminophen (TYLenol 325MG TAB) 650 mg Q4H PRN PO MILD PAIN (1-3) 12/01/24 01:30 12/31/24 01:29 12/01/24 20:18 650 MG Acetaminophen (TYLenol 325MG TAB) 650 mg Q6H PRN PO TEMPERATURE GREATER THAN 101.5 12/01/24 01:30 12/31/24 01:29 Albuterol (DUOneb) 1 udvial C0OIGOP PRN IH COUGH 12/01/24 01:30 12/31/24 01:29 12/02/24 06:41 1 UDVIAL Aspirin (Aspirin 81mg Ec Tab) 81 mg DAILY PO 12/01/24 09:00 12/31/24 08:59 12/02/24 08:07 81 MG Atenolol (Atenolol) 50 mg DAILY PO 12/01/24 09:00 12/31/24 08:59 12/02/24 08:07 50 MG Atorvastatin Calcium (LIPItor 10MG) 5 mg DAILY PO 12/01/24 09:00 12/31/24 08:59 12/02/24 08:07 5 MG Ceftriaxone Sodium (ROCEphine 1G INJ) 1 gm Q24H IVPB 12/01/24 09:30 12/02/24 08:16 DC 12/01/24 09:48 1 GM Ceftriaxone Sodium (Rocephin 2gm Inj) 2 gm Q24H IVPB 12/02/24 09:30 12/12/24 09:29 Dextrose (D50w) 50 ml AD PRN IV HYPOGLYCEMIA PROTOCOL 12/01/24 01:30 12/31/24 01:29 Doxycycline Hyclate 250 ml @ 125 mls/hr Q12H IV 12/01/24 11:00 12/11/24 10:59 12/01/24 22:05 125 MLS/HR Enoxaparin Sodium (Lovenox) 30 mg DAILY SQ 12/01/24 09:00 12/01/24 09:32 DC 12/01/24 08:49 30 MG Famotidine (Pepcid 20mg Tab) 20 mg BID PO 12/01/24 09:00 12/31/24 08:59 12/02/24 08:07 20 MG Furosemide (LASix 20MG VIAL) 20 mg Q12H IV 12/01/24 09:00 12/01/24 11:13 DC 12/01/24 08:48 20 MG Furosemide (LASix 20MG VIAL) 20 mg Q12H IV 12/01/24 11:30 12/01/24 16:26 DC 12/01/24 11:35 20 MG Furosemide (LASix 40MG VIAL) 40 mg Q8H IV 12/01/24 16:30 12/31/24 16:29 12/02/24 08:07 40 MG Glucagon (Glucagon 1mg Kit) 1 mg AD PRN IM HYPOGLYCEMIA PROTOCOL 12/01/24 01:30 12/31/24 01:29 Guaifenesin/ Dextromethorphan (RobiTUSSin DM 200/20MG 10ML) 10 ml Q4H PRN PO COUGH 12/01/24 01:30 12/31/24 01:29 12/02/24 02:24 10 ML Heparin Sodium/ Dextrose 250 ml @ 0 mls/hr PROTOCOL IV 12/01/24 10:00 12/31/24 09:59 12/02/24 04:37 13.26 MLS/HR Insulin Glargine (LANtus 100 UNITS/ML 10 ML VIAL) 10 units HS SQ 12/01/24 21:00 12/02/24 08:18 DC 12/01/24 20:18 10 UNITS Insulin Glargine (LANtus 100 UNITS/ML 10 ML VIAL) 20 units BID SQ 12/02/24 09:00 12/31/24 20:59 Insulin Human Regular (humuLIN R 100 UNIT/ML 3ML) INSULIN SLIDING SCAL... ACHS SQ 12/01/24 07:30 12/31/24 07:29 12/02/24 08:12 5 UNIT Magnesium Sulfate 50 ml @ 0 mls/hr PROTOCOL PRN IV OTHER [SEE ORDER COMMENTS] 12/01/24 01:30 12/31/24 01:29 12/02/24 05:57 25 MLS/HR Nitroglycerin (Nitroglycerin 1gm Oint) 0.5 inch Q8H TD 12/01/24 01:30 12/31/24 01:29 12/02/24 00:46 0.5 INCH Nitroglycerin (Nitrostat) 0.4 mg PROTOCOL PRN SL CHEST PAIN 12/01/24 01:30 12/31/24 01:29 Ondansetron HCl (zoFRAN 4MG INJ) 4 mg Q6H PRN IV NAUSEA/VOMITING 12/01/24 01:30 12/31/24 01:29 Potassium Chloride 100 ml @ 100 mls/hr AD PRN IV POTASSIUM PROTOCOL 12/01/24 01:30 12/31/24 01:29 Potassium Chloride (K-Dur/Klor-Con 20meq) 20 meq AD PRN PO POTASSIUM PROTOCOL 12/01/24 01:30 3/31/25 01:29 Potassium Chloride (KCl 10% Elixir 20meq/15ml) 20 meq AD PRN PO POTASSIUM PROTOCOL 12/01/24 01:30 12/31/24 01:29 DIAGNOSTICS / RADIOLOGY: [ ] ASSESSMENT: Acute respiratory failure with hypoxia POA NSTEMI POA Suspected acute CHF POA Uncontrolled diabetes with hyperglycemia POA Normocytic normochromic anemia POA Acute thrombocytosis POA Pseudohyponatremia secondary to hyperglycemia POA Hyperlipidemia POA Nicotine dependence POA Positive amphetamines POA PLAN: Continue admission to PCU Continue CPAP Continue on consistent carb and heart healthy diet Continue Famotidine 20 mg p.o. bid for GI prophylaxis Continue lasix drip Continue heparin drip Continue aspirin 81 mg p.o. daily Daily weight and strict I&O Fluid restriction 1.5 L per day Continue to follow cardiology recommendations. Continue to follow Pulmonary input and recommendation Case discussed with attending physician and came up with above treatment and plan of care. Total time spent 30 minutes. DAMION LAZAR MD Dec 02, 2024 09:53
[2024-12-02] MEDS: CEFTRIAXONE 2GM VIAL IVPB SCH (09:59)
[2024-12-02] MEDS: INSULIN GLARgine 100 UNITS/ML 10 ML VIAL SQ SCH (09:59)
--- NOTE | 2024-12-02 10:00 | NUR ---
PT PLACED INTO CARDIAC CHAIR
--- NOTE | 2024-12-02 11:08 | HMCIMG ---
PORTABLE CHEST RADIOGRAPH INDICATION: chf COMPARISON: 12/01/2024 CTA chest FINDINGS/IMPRESSION: Stable heart size without pulmonary vascular congestion. Worsening extensive bilateral lung pneumonia and associated trace bilateral pleural effusions suspected, without pneumothorax.
[2024-12-02] MEDS ORDERED: furoSEMIDE 40MG VIAL IV SCH ×2 (14:00→20:30)
[2024-12-02 14:15] LABS: ABG BASE EXCESS -1.4 mmol/L (-2.0-3.0); ABG HCO3 21.8 mmol/L (21.0-28.0); ABG OXYGEN SATURATION 92.2 % (94.0-98.0); ABG PCO2 32 mmHg (35-48); ABG PH 7.452 (7.350-7.450); CARBON MONOXIDE 0.6 % (0.5-1.5); DEVICE COMMENT RN LOREN; HHb 7.7; PO2, ARTERIAL BG 63.4 mmHg (83.0-108.0); VENT MODE, BG NC (ROOM AIR)
[2024-12-02] MEDS: PoTASSium chloRIDE 20MEQ ER 20 MEQ ERTAB PO PRN (14:17)
[2024-12-02] MEDS: furoSEMIDE 40MG VIAL IV SCH (14:25)
[2024-12-02] MEDS: IpraTROPium 0.5 MG/2.5 ML INH IH ONE (14:32)
--- NOTE | 2024-12-02 14:48 | NUR ---
INITIAL/DCP HOME Met w pt and spouse this afternoon to discuss dcp. Pt lives w his and mother in law. He is independent w ambulation and ADLs. He does not own any DME or receive services. Preferred pharmacy is [facility] or mentions she will purchase meds in [place]. Pt and are able to drive where needed. Discharge goal is to return home. Good Rx coupon along w community resource guide provided. Addendum: 12/02/24 at 1450 by KAVITHA PANCHAL Amended: Links added.
[2024-12-02] MEDS: PHARMACY COMMUNICATION MISC SCH (15:00)
--- NOTE | 2024-12-02 15:04 | NUR ---
BACK IN BED. SAUCEDO CATH INSERTED. CPAP APPLIED. 40MG IV LASIX WAS GIVEN.
[2024-12-02] MEDS: furoSEMIDE 100MG VIAL 100 MG in 0.9%NACL 100ML 100 ML IV SCH (15:23)
[2024-12-02] MEDS: ZOSYN 3.375GM +NS 50ML IV SCH (15:26)
[2024-12-02 15:39] LABS: HIV 1&2 ANTIBODY Non-Reactive (Negative)
--- NOTE | 2024-12-02 15:39 | NUR ---
BEDSIDE PULSE OX 92% WITH 40% FIO2 CPAP 10. PT NOW RESTING. EARLIER HE COULD NOT CATCH HIS BREATH LYING DOWN . HE PREFERRED SITTING UP IN CHAIR. HE HAS ORTHOPNEA AND ALSO C/O WAKING UP WITH SUDDEN SOB . LASIX DRIP HAS BEEN STARTED AT 5MG/HR
[2024-12-02 15:40] LABS: HIV-1 p24 Antigen Non-Reactive (Negative)
[2024-12-02] MEDS ORDERED: IpraTROPium 0.5 MG/2.5 ML INH IH SCH (18:00)
--- NOTE | 2024-12-02 19:31 | NUR ---
REPORT GIVEN TO RONNA YORK
[2024-12-02 21:48] LABS: MAGNESIUM 1.8 mg/dL (1.80-2.40); POTASSIUM 3.7 mmol/L (3.5-5.1)
[2024-12-02] MEDS: Solu-medROL 40MG VIAL IVP SCH (21:56)
[2024-12-02] MEDS: IpraTROPium 0.5 MG/2.5 ML INH IH SCH (23:28)
[2024-12-03] VITALS (16 sets, daily range): BP systolic 85–122; BP diastolic 55–75; PULSE 55–101; RESP 15–22; TEMP 97.2–98.6; O2SAT 95–100
[2024-12-03 03:57] LABS: HEMATOCRIT 35.8 % (42-54); MEAN CORPUSCULAR HEMOGLOBIN 28.4 pg (27.0-33.0); MEAN CORPUSCULAR VOLUME 86.3 fL (79-99); RED BLOOD CELL COUNT(AUTO) 4.15 MIL/uL (4.50-6.20); RED CELL DISTRIBUTION WIDTH 12.6 % (11.0-15.5); WHITE BLOOD COUNT (AUTO) 13.1 K/uL (4.8-10.8)
[2024-12-03 04:16] LABS: BILIRUBIN,TOTAL 0.4 mg/dL (0.2-1.0); MAGNESIUM 1.9 mg/dL (1.80-2.40); POTASSIUM 3.9 mmol/L (3.5-5.1)
[2024-12-03] MEDS: PANTOPrazole 40 MG/VIAL IVP SCH (09:56)
[2024-12-03] MEDS: monteLUKAST sodIUM 10 MG TAB PO SCH (09:56)
[2024-12-03] MEDS ORDERED: LORazepam 2 MG/ML 1 ML VIAL IVP PRN ×2 (11:00)
[2024-12-03] MEDS ORDERED: PROMETHAZINE HCL 25 MG TABLET PO PRN (11:00)
[2024-12-03] MEDS ORDERED: ondanSETRON 4MG INJ IV PRN (11:00)
[2024-12-03] MEDS ORDERED: PHARMACY COMMUNICATION MISC PRN (11:00)
--- NOTE | 2024-12-03 11:03 | PN ---
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 NSTEMI POA Type II likely from supply and demand mismatch from above Severe bilateral multifocal pneumonia POA Uncontrolled diabetes with hyperglycemia POA Normocytic normochromic anemia POA Acute thrombocytosis POA Pseudohyponatremia secondary to hyperglycemia POA Hyperlipidemia POA Nicotine dependence POA Positive amphetamines POA 76 Pack year smoker INTERVAL HISTORY: Pt is awake alert and oriented x 3, pt on @ 2L via NC saturating 100%. He is hemodynamically stable, ST 104, and afebrile. pt with good urine output of 5.4 L with lasix drip, now we canstop drip and continue with IVP. He continues on heparin gtt per protocol. Pt was found to have a noncompressible thrombus in the left popliteal vein. Heparin had been stopped per Cardiology but will need to continue for now until PO AC has been started. WBCs trending down 12.1 today. HH stable 11.8/36,glucose have been climning up likely from steroids, adjusted Lantus insulin. Sodium 134, chloride 98 BUN 22 creatinine of 1.0 GFR of 93 glucose of 297 mg/dL BNP 1560 albumin of 1.9. Sputum culture growing Yesica albicans, HIV with reflex negative. We will continue to follow Cardiology recommendations. REVIEW OF SYSTEMS: 12 point ROS reviewed with patient. Pertinent positives mentioned above. Otherwise negative. PHYSICAL EXAM: GENERAL: alert, weak, awake oriented x 3 HEENT: EOMI, Sclera non icteric, moist mucosa NECK: Supple, no JVD, trachea midline LUNGS: Clear breath sounds bilaterally. No wheezes HEART: Regular rate and rhythm. Normal S1 and S2, without murmurs ABD: Abdomen soft, nontender. Bowel sounds present EXT: No clubbing cyanosis or edema NEURO: Alert and oriented to person, follows commands Vital Signs (last 8hr) Date Time Temp Pulse Resp B/P (MAP) Pulse Ox O2 Delivery O2 Flow Rate FiO2 12/03/24 09:57 85 103/65 12/03/24 08:00 97.9 85 20 103/65 98 BIPAP 60 12/03/24 06:37 85 15 12/03/24 06:37 85 15 40 12/03/24 04:00 98.1 88 21 93/66 98 BIPAP 12/03/24 03:05 93 19 40 LABS: Hematology Labs: Test 12/03/24 03:25 Range/Units White Blood Count 13.1 H 4.8-10.8 K/uL Red Blood Count 4.15 L 4.50-6.20 MIL/uL Hemoglobin 11.8 L 14.0-18.0 g/dL Hematocrit 35.8 L 42-54 % Mean Corpuscular Volume 86.3 79-99 fL Mean Corpuscular Hemoglobin 28.4 27.0-33.0 pg Mean Corpuscular Hemoglobin Concent 33.0 32.0-36.0 g/dL Red Cell Distribution Width 12.6 11.0-15.5 % Platelet Count 484 H 130-400 K/uL Mean Platelet Volume 9.1 7.5-10.5 fL Nucleated Red Blood Cells 0.0 0.0-0.19 % Chemistry Labs: Test 12/03/24 05:01 12/03/24 03:25 12/02/24 19:37 12/01/24 13:15 Range/Units Whole Blood Glucose 197 H 70-110 MG/DL Sodium Level 134 L 136-145 mmol/L Potassium Level 3.9 3.5-5.1 mmol/L Chloride Level 100 L 101-111 mmol/L Carbon Dioxide Level 29 21-32 mmol/L Blood Urea Nitrogen 17 7-18 mg/dL Creatinine 1.0 0.5-1.3 mg/dL Glomerular Filtration Rate Calc 93 >90 mL/min Random Glucose 174 H 70-105 mg/dL Total Calcium 8.8 8.5-10.1 mg/dL Magnesium Level 1.90 1.80-2.40 mg/dL Total Bilirubin 0.4 0.2-1.0 mg/dL Aspartate Amino Transf (AST/SGOT) 22 10-37 U/L Alanine Aminotransferase (ALT/SGPT) 22 12-78 U/L Alkaline Phosphatase 143 H 50-136 U/L Total Protein 7.0 6.0-8.3 g/dL Albumin 2.0 L 3.5-5.0 g/dL Bedside Glucose Comment Notified Nurse Troponin I High Sensitivity 1658 *H 4-75 ng/L Coagulation Labs: Test 12/02/24 21:30 12/01/24 15:41 Range/Units Activated Partial Thromboplast Time 48.1 H 26.3-35.5 SEC Prothrombin Time 11.4 9.6-11.6 SEC Prothromb Time International Ratio 1.08 0.85-1.15 DIAGNOSTICS / RADIOLOGY RESULTS: [ ]IMAGING REPORT Signed PATIENT: LAUREN GOEL JR MR#: [id number] : 1975 SEX: M AGE: 49 LOCATION: 2AH ORDER [id number] STATUS: ADM IN REPORT#: [id number] SERVICE 1059 REASON: hypoxic resp failure ORDERING PHYSICIAN: ROSA PALMA PROCEDURE: CXR1VW - CHEST 1VW CHEST 1VW HISTORY: Respiratory failure COMPARISON: 12/02/2024 FINDINGS: A frontal projection of the chest was obtained. There are bilateral pulmonary infiltrates suggestive of pulmonary vascular congestion with possible superimposed pneumonitis. The heart is borderline enlarged. Degenerative changes are seen. IMPRESSION: 1. Bilateral pulmonary infiltrates are seen suggestive of pulmonary vascular congestion with possible superimposed pneumonitis. DICTATED BY: MYLA EMERSON MD DATE: 12/03/24 1230 ELECTRONICALLY SIGNED BY: MYLA EMERSON MD DATE: 12/03/24 1234 IMAGING REPORT Signed PATIENT: LAUREN GOEL JR MR#: [id number] : 1975 SEX: M AGE: 49 LOCATION: 2AH ORDER 1049 STATUS: ADM IN REPORT#: [id number] SERVICE 1043 REASON: rule out DVT ORDERING PHYSICIAN: ROSA PALMA PROCEDURE: VENOUS COURTNEY - US VENOUS DOPPLER BILATERAL US VENOUS DOPPLER BILATERAL HISTORY: Edema COMPARISON: None TECHNIQUE: Bilateral lower extremity venous Doppler ultrasound study was performed. FINDINGS: The common femoral, femoral, popliteal, and posterior tibial veins are visualized. Normal flow with augmentation and compressibilities are demonstrated on the right. There is partial thrombosis with noncompressible thrombus in the left popliteal vein.. The greater saphenous veins are also seen and grossly patent. IMPRESSION: 1. Deep venous thrombosis is seen with noncompressible thrombus in the left popliteal vein. DICTATED BY: MYLA EMERSON MD DATE: 12/03/24 1232 ELECTRONICALLY SIGNED BY: MYLA EMERSON MD DATE: 12/03/24 1235 PLAN IV ABX with zosyn and doxy stop lasix drip continue with lasix IVP Continue heparin for now for DVT until PO AC has been started cpap cardiac monitoring dc duoneb start atrovent nebs prn Solu-Medrol 40mg ivp bid for severe pneumonia, wean as possible now 20mg IVP q8hrs hepatitis panel follow cardiology recommendations currently on heparin gtt -Arrange outpatient pulmonology referral for sleep study, PFT and follow-up management upon discharge singulair protonix for GI PPX fc placement HIV ltest with reflex negative monito resp status closely, repeat abg if decline in resp status he is high risk for decompensations. NEURO: Minimize central acting medications as possible. Maintain fall precautions, adequate lighting during the day PULMONARY: Supplemental 02 as needed. Maintain aspiration precautions at all times CARDIOVASCULAR: Follow hemodynamics. Vital signs per facility protocol GI & NUTRITION: Continue with nutritional support. Continue stool softeners and laxatives as needed. KIDNEYS & ELECTROLYTES: Strict monitoring of intake, output and overall fluid balance. Avoid nephrotoxic medications to the extent possible. Medications to be dosed according to renal function. Monitor electrolytes and replace as needed ENDOCRINE: Maintain blood glucose between 100-180 at all times. Hypoglycemia protocol in place INFECTIOUS DISEASE: Trend temperature, WBC and procalcitonin level Follow cultures, deescalate antibiotics as soon as possible. Panculture if new onset fever ONCOLOGY/HEMATOLOGY/COAGULATION: Monitor for s/s of bleeding Monitor hemoglobin, coagulation studies as needed SKIN: Pressure ulcer prevention per facility protocol Specialty mattress ORTHO/REHAB: Continue PT/OT Prophylaxis: Continue GI and DVT prophylaxis Code Status: Full Resuscitation Disposition: TBD Other: Total patient care time exceeds 35 minutes excluding all procedures. ROSA PALMA Dec 03, 2024 11:03
[2024-12-03 11:35] LABS: BASOPHILS # (AUTO) 0.01 K/uL (0.00-0.20); BASOPHILS % (AUTO) 0.1 % (0.0-5.0); IMMATURE GRANULOCYTE ABSOLUTE 0.05 K/uL (0-1); LYMPHOCYTES # (AUTO) 0.9 K/uL (1.0-4.8); LYMPHOCYTES % (AUTO) 7.4 % (21.0-51.0); MEAN CORPUSCULAR HEMOGLOBIN 28.8 pg (27.0-33.0); MEAN CORPUSCULAR HGB CONC 32.8 g/dL (32.0-36.0); MEAN CORPUSCULAR VOLUME 87.8 fL (79-99); MONOCYTES # (AUTO) 0.4 K/uL (0.1-1.0); NEUTROPHILS # (AUTO) 10.8 K/uL (1.8-7.7); NEUTROPHILS % (AUTO) 89.1 % (40.0-77.0); PLATELET COUNT (AUTO) 497 K/uL (130-400); RED CELL DISTRIBUTION WIDTH 12.7 % (11.0-15.5); WHITE BLOOD COUNT (AUTO) 12.1 K/uL (4.8-10.8)
--- NOTE | 2024-12-03 11:41 | PN ---
[facility] CARDIOLOGY PROGRESS NOTE Date Patient Seen: Dec 03, 2024 Time of Visit: 11:34 Interval History: [ No acute events overnight , currently denies any chest pain , palpitations , dyspnea or any other anginal equivalents. Overnight urinary output 5400 ml. Renal function stable , Cr 1.0. ] Physical Examination: GENERAL: [No acute distress.] HEAD: [Normal with no signs of head trauma.] EYES: [PERRLA, EOMI, conjunctiva and sclera normal.] ENT: [Hearing grossly intact, normal oropharynx.] NECK: [Supple without JVD. There is no tenderness, lymphadenopathy, or masses. No thyromegaly. Normal carotid upstrokes without bruits.] LUNGS: [rales bilaterally] HEART: [Normal rate and rhythm. Normal S1 and S2 without murmurs, gallop or rub.] VASC: [Peripheral pulses +2 bilaterally.] ABD: [Bowel sounds normal, soft, nontender, no masses, no organomegaly. No audible bruits.] : [Not examined] LYMPH: [No lymphadenopathy noted.] EXT: [2+ edema.] SKIN: [No rashes or lesions noted.] NEURO: [Awake, alert, and oriented x3. No focal sensory or strength deficits noted.] Laboratory: [ ] Hematology Labs: Test 12/03/24 03:25 Range/Units White Blood Count 13.1 H 4.8-10.8 K/uL Red Blood Count 4.15 L 4.50-6.20 MIL/uL Hemoglobin 11.8 L 14.0-18.0 g/dL Hematocrit 35.8 L 42-54 % Mean Corpuscular Volume 86.3 79-99 fL Mean Corpuscular Hemoglobin 28.4 27.0-33.0 pg Mean Corpuscular Hemoglobin Concent 33.0 32.0-36.0 g/dL Red Cell Distribution Width 12.6 11.0-15.5 % Platelet Count 484 H 130-400 K/uL Mean Platelet Volume 9.1 7.5-10.5 fL Nucleated Red Blood Cells 0.0 0.0-0.19 % Chemistry Labs: Test 12/03/24 11:25 12/03/24 03:25 12/02/24 19:37 12/01/24 13:15 Range/Units Whole Blood Glucose 281 H 70-110 MG/DL Sodium Level 134 L 136-145 mmol/L Potassium Level 3.9 3.5-5.1 mmol/L Chloride Level 100 L 101-111 mmol/L Carbon Dioxide Level 29 21-32 mmol/L Blood Urea Nitrogen 17 7-18 mg/dL Creatinine 1.0 0.5-1.3 mg/dL Glomerular Filtration Rate Calc 93 >90 mL/min Random Glucose 174 H 70-105 mg/dL Total Calcium 8.8 8.5-10.1 mg/dL Magnesium Level 1.90 1.80-2.40 mg/dL Total Bilirubin 0.4 0.2-1.0 mg/dL Aspartate Amino Transf (AST/SGOT) 22 10-37 U/L Alanine Aminotransferase (ALT/SGPT) 22 12-78 U/L Alkaline Phosphatase 143 H 50-136 U/L Total Protein 7.0 6.0-8.3 g/dL Albumin 2.0 L 3.5-5.0 g/dL Bedside Glucose Comment Notified Nurse Troponin I High Sensitivity 1658 *H 4-75 ng/L Coagulation Labs: Test 12/02/24 21:30 12/01/24 15:41 Range/Units Activated Partial Thromboplast Time 48.1 H 26.3-35.5 SEC Prothrombin Time 11.4 9.6-11.6 SEC Prothromb Time International Ratio 1.08 0.85-1.15 Diagnostics / Radiology: [Copy/Paste Echos/Imaging Report here] Impression and Plan: [Elevated Trop 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 No need to trend enzymes. - amphetamine use -Continue lasix 20 mg q12h, Cr stable at 1.0 Urinae output 24 hrs : 5400 ml monitor daily CXR -Stop IV heparin -Continue asa 325 mg x1, asa 81 mg qd and plavix 300 mg x1 -Increase Lipitor to 40 mg QHS. #HFrEF LVEF 25-30% -likely driven by amphetamine -GDMT optimization: Stop pindolol and Toprol XL today -Tomorrow we will consider initiating Entresto - Strict I-Os / daily weights -unknown etiology, will plan for inpatient vs outpatient CCTA once hemodynamically stable and euvolemic Thank you for this consult. We will continue to follow along. Nicolas Gandhi MD ] ATTESTATION BY PHYSICIAN I have seen and examined the patient, reviewed the above documentation, participated in medical decision making, made necessary modifications, and agree with the treatment plan as documented by my mid-level provider above. MD DARCY Morse JAMES R MD Dec 03, 2024 11:41
[2024-12-03 11:56] LABS: ALANINE AMINOTRANSFERASE 23 U/L (12-78); ALBUMIN 1.9 g/dL (3.5-5.0); ASPARTATE AMINOTRANSFERASE 22 U/L (10-37); BILIRUBIN,TOTAL 0.4 mg/dL (0.2-1.0); CARBON DIOXIDE 31 mmol/L (21-32); CHLORIDE 98 mmol/L (101-111); GLOMERULAR FILTR. RATE CALC 93 mL/min (>90); GLUCOSE,RANDOM 297 mg/dL (70-105); PHOSPHORUS 4.6 mg/dL (2.5-4.9); POTASSIUM 4.1 mmol/L (3.5-5.1); SODIUM SERUM 134 mmol/L (136-145); UREA NITROGEN, BLOOD 22 mg/dL (7-18)
[2024-12-03 12:04] LABS: ALCOHOL, BLOOD < 3 mg/dL (0-10)
--- NOTE | 2024-12-03 12:34 | HMCIMG ---
CHEST 1VW HISTORY: Respiratory failure COMPARISON: 12/02/2024 FINDINGS: A frontal projection of the chest was obtained. There are bilateral pulmonary infiltrates suggestive of pulmonary vascular congestion with possible superimposed pneumonitis. The heart is borderline enlarged. Degenerative changes are seen. IMPRESSION: 1. Bilateral pulmonary infiltrates are seen suggestive of pulmonary vascular congestion with possible superimposed pneumonitis.
--- NOTE | 2024-12-03 12:35 | HMCIMG ---
US VENOUS DOPPLER BILATERAL HISTORY: Edema COMPARISON: None TECHNIQUE: Bilateral lower extremity venous Doppler ultrasound study was performed. FINDINGS: The common femoral, femoral, popliteal, and posterior tibial veins are visualized. Normal flow with augmentation and compressibilities are demonstrated on the right. There is partial thrombosis with noncompressible thrombus in the left popliteal vein.. The greater saphenous veins are also seen and grossly patent. IMPRESSION: 1. Deep venous thrombosis is seen with noncompressible thrombus in the left popliteal vein.
[2024-12-03] MEDS: furoSEMIDE 40MG VIAL IV SCH (13:46)
[2024-12-03] MEDS: miDODRine HCL 5 MG TABLET PO SCH (13:54)
--- NOTE | 2024-12-03 14:14 | PN ---
[facility] PROGRESS NOTE Date of Service: Dec 03, 2024 Time of Service: 13:56 SUBJECTIVE: This is a 49-year-old male with past medical history of diabetes, hyperlipidemia and hypertension who presented to the ED for complaints of left-sided chest pain. Labs in the ER WBC 11.7 with negative left shift of neutrophils 77.6, hemoglobin 13.1, hematocrit 39.4 platelet count 462. Sodium 131, potassium 4.5, chloride 95, carbon dioxide 34 glucose 488, ketones 0.2, troponin 1732 to 1661 BNP 1180. EKG result revealed sinus tachycardia heart rate 118 with probable anterior infarct age indeterminate. Toxicology screen positive for amphetamines. Patient seen and examined, still mildy tachycardic. During my visit patient on CPAP, alert oriented x3, following commands, admits to feeling less shortness a breath compared to time of admission. He has been started on Lasix drip. Also on heparin drip. Echocardiogram showed LVEF 25- Cardiology input noted and appreciated. Plan for inpatient vs outpatient CCTA. 12/03 patient seen at bedside, no acute events overnight. He is diuresing well with a proximally five point L urine output, Lasix drip has been deescalated to oral Lasix 40 mg 3 times daily. He has been afebrile, hemodynamically stable continues on BiPAP. Blood pressure has been on the low side of normal, was started on midodrine, we will discuss the use of midodrine in the setting of severe CHF as it can be contraindicated. Remainder of his labs are relatively unremarkable. Venous Doppler showing DVT with noncompressible thrombus in the left popliteal vein, heparin drip discontinued today we will follow up with Cardiology regarding anticoagulation. REVIEW OF SYSTEMS CONSTITUTIONAL: Denies fevers, chills, or night sweats. No unintentional weight loss reported. NEUROLOGICAL: Denies headache, amaurosis fugax, motor weakness, sensory deficit, vertigo/spinning sensation, gait abnormalities, or tremors. ENT: No hearing loss, otalgia, otorrhea, rhinitis, rhinorrhea, hoarseness, or sore throat. CARDIOVASCULAR: Complaints of chest pain dyspnea on exertion orthopnea Denies paroxysmal nocturnal dyspnea, palpitations, life-threatening arrhythmias, claudication. PULMONARY: Complaints of shortness of breaths and dry cough Denies phlegm/sputum, hemoptysis, pleuritic chest pain. SLEEP: Denies morning headaches, daytime somnolence or napping. Denies difficulty falling asleep, staying asleep, waking from sleep. Denies knowledge of snoring. GASTROINTESTINAL: Denies any type of dysphagia to either liquids or solids. Denies nausea, vomiting, pyrosis, early satiety, abdominal pain, diarrhea, constipation, or changes in stool consistency or caliber. Denies coffee-ground emesis, hematemesis, hematochezia, or melanotic stools. GENITOURINARY: Denies frequency, urgency, nocturia, hematuria or incontinence (Storage/Irritative symptoms.) Low urinary stream, straining to void, urinary intermittency or hesitancy, splitting of the voiding stream, terminal dribbling. ENDOCRINOLOGIC: Denies polyuria, polydipsia, polyphagia or heat/cold intolerances. HEMATOLOGIC: Denies thrombophilia/previous clots, or coagulopathy/bleeding disorders. ONCOLOGIC: Denies personal history of malignancy. DERMATOLOGIC: Denies rashes or pruritus. PSYCHIATRIC: Denies any suicidal or homicidal ideation. Denies hallucinations. PHYSICAL EXAM GENERAL APPEARANCE: The patient is awake, alert, and oriented, in no acute cardiopulmonary distress. NEUROLOGICAL: Cranial nerves II-XII grossly intact. Motor is 5/5 in bilateral upper and lower extremities proximal to distal. No sensory deficits. HEENT: Face is symmetric. Pupils are equal and reactive. Extraocular movements are intact. NECK: Supple. No JVD. No thyromegaly. No submental, submandibular, pre-/po stauricular, occipital or supraclavicular lymphadenopathy. CHEST: Normal chest expansion. Telemetry. LUNGS: Crackles to the lower bases on both lung correa per auscultation CARDIOVASCULAR: Tachycardic and Regular. S1 and S2 normal. No appreciable rubs, murmurs or gallops. ABDOMEN: Soft, nontender, and nondistended. There is no rebound, voluntary guarding, or rigidity. : Deferred. No [place]. EXTREMITIES: 2+ edema to bilateral lower extremities Good capillary refill. SKIN: No skin breakdown. Vital Signs (last 8hr) Date Time Temp Pulse Resp B/P (MAP) Pulse Ox O2 Delivery O2 Flow Rate FiO2 12/03/24 13:45 85/55 12/03/24 13:43 80 19 12/03/24 11:53 97.7 80 20 97 12/03/24 09:57 85 103/65 12/03/24 08:00 97.9 85 20 103/65 98 BIPAP 60 12/03/24 06:37 85 15 12/03/24 06:37 85 15 40 LABS: Laboratory: Test 12/03/24 11:25 12/03/24 11:15 12/02/24 21:30 12/02/24 19:37 Range/Units Whole Blood Glucose 281 H 70-110 MG/DL White Blood Count 12.1 H 4.8-10.8 K/uL Red Blood Count 4.10 L 4.50-6.20 MIL/uL Hemoglobin 11.8 L 14.0-18.0 g/dL Hematocrit 36.0 L 42-54 % Mean Corpuscular Volume 87.8 79-99 fL Mean Corpuscular Hemoglobin 28.8 27.0-33.0 pg Mean Corpuscular Hemoglobin Concent 32.8 32.0-36.0 g/dL Red Cell Distribution Width 12.7 11.0-15.5 % Platelet Count 497 H 130-400 K/uL Mean Platelet Volume 9.2 7.5-10.5 fL Immature Granulocyte % (Auto) 0.4 0-1 % Neutrophils (%) (Auto) 89.1 H 40.0-77.0 % Lymphocytes (%) (Auto) 7.4 L 21.0-51.0 % Monocytes (%) (Auto) 3.0 3.0-13.0 % Eosinophils (%) (Auto) 0.0 0.0-8.0 % Basophils (%) (Auto) 0.1 0.0-5.0 % Neutrophils # (Auto) 10.8 H 1.8-7.7 K/uL Lymphocytes # (Auto) 0.9 L 1.0-4.8 K/uL Monocytes # (Auto) 0.4 0.1-1.0 K/uL Eosinophils # (Auto) 0.00 0.00-0.70 K/uL Basophils # (Auto) 0.01 0.00-0.20 K/uL Absolute Immature Granulocyte (auto 0.05 0-1 K/uL Nucleated Red Blood Cells 0.0 0.0-0.19 % White Cell Morphology Comment See comments Sodium Level 134 L 136-145 mmol/L Potassium Level 4.1 3.5-5.1 mmol/L Chloride Level 98 L 101-111 mmol/L Carbon Dioxide Level 31 21-32 mmol/L Blood Urea Nitrogen 22 H 7-18 mg/dL Creatinine 1.0 0.5-1.3 mg/dL Glomerular Filtration Rate Calc 93 >90 mL/min Random Glucose 297 #H 70-105 mg/dL Total Calcium 8.8 8.5-10.1 mg/dL Phosphorus Level 4.6 2.5-4.9 mg/dL Magnesium Level 1.90 1.80-2.40 mg/dL Total Bilirubin 0.4 0.2-1.0 mg/dL Aspartate Amino Transf (AST/SGOT) 22 10-37 U/L Alanine Aminotransferase (ALT/SGPT) 23 12-78 U/L Alkaline Phosphatase 135 50-136 U/L B-Type Natriuretic Peptide 1560 H 0-100 pg/mL Total Protein 7.0 6.0-8.3 g/dL Albumin 1.9 L 3.5-5.0 g/dL Serum Alcohol < 3 0-10 mg/dL Activated Partial Thromboplast Time 48.1 H 26.3-35.5 SEC Bedside Glucose Comment Notified Nurse Test 12/02/24 14:13 12/02/24 08:45 12/01/24 15:41 Range/Units Blood Gas Specimen Type Arterial Arterial Blood pH 7.452 H 7.350-7.450 Arterial Blood Partial Pressure CO2 32 L 35-48 mmHg Arterial Blood Partial Pressure O2 63.4 L 83.0-108.0 mmHg Arterial Blood HCO3 21.8 21.0-28.0 mmol/L Arterial Blood Oxygen Saturation 92.2 L 94.0-98.0 % Arterial Blood Base Excess -1.4 -2.0-3.0 mmol/L Hemoglobin (Blood Gas) 12.4 L 13.5-17.5 g/dL Sodium (Blood Gas) 129 L 136-145 MMOL/L Bedside Potassium (Blood Gas) 3.8 3.4-4.5 MMOL/L Bedside Chloride (Blood Gas) 99 98-107 MMOL/L Bedside Glucose (Blood Gas) 326 H 65-95 MG/DL Bedside Ionized Calcium (Blood Gas) 1.15 1.15-1.33 MMOL/L Bedside Lactic Acid (Blood Gas) 0.90 H 0.36-0.75 MMOL/L Blood Gas Temperature 37.0 35.5-37.0 CELSIUS Blood Gas Flow-by 2.00 0.00-15.00 L/min Blood Gas Vent Mode NC ROOM AIR FiO2 28.0 % Blood Gas Specimen Comment JAYLEN [place] HIV (1&2) Antibody Non-Reactive Negative HIV P24 Antigen, Qualitative Non-Reactive Negative Prothrombin Time 11.4 9.6-11.6 SEC Prothromb Time International Ratio 1.08 0.85-1.15 Current Medications Medications (Trade) Dose Ordered Sig/Nasim Route PRN Reason Start Time Stop Time Status Last Admin Dose Admin Acetaminophen (TYLenol 325MG TAB) 650 mg Q4H PRN PO MILD PAIN (1-3) 12/01/24 01:30 12/31/24 01:29 12/01/24 20:18 650 MG Acetaminophen (TYLenol 325MG TAB) 650 mg Q6H PRN PO TEMPERATURE GREATER THAN 101.5 12/01/24 01:30 12/31/24 01:29 Albuterol (DUOneb) 1 udvial [id number] PRN IH COUGH 12/01/24 01:30 12/02/24 19:26 DC 12/02/24 18:55 1 UDVIAL Aspirin (Aspirin 81mg Ec Tab) 81 mg DAILY PO 12/01/24 09:00 12/31/24 08:59 12/03/24 09:56 81 MG Atenolol (Atenolol) 50 mg DAILY PO 12/01/24 09:00 12/03/24 11:18 DC 12/03/24 09:57 50 MG Atorvastatin Calcium (LIPItor 10MG) 5 mg DAILY PO 12/01/24 09:00 12/03/24 07:13 DC 12/02/24 08:07 5 MG Atorvastatin Calcium (LIPItor 10MG) 5 mg HS PO 12/03/24 21:00 12/03/24 11:22 DC Atorvastatin Calcium (LIPItor 40MG) 40 mg HS PO 12/03/24 21:00 01/02/25 20:59 Ceftriaxone Sodium (ROCEphine 1G INJ) 1 gm Q24H IVPB 12/01/24 09:30 12/02/24 08:16 DC 12/01/24 09:48 1 GM Ceftriaxone Sodium (Rocephin 2gm Inj) 2 gm Q24H IVPB 12/02/24 09:30 12/02/24 14:39 DC 12/02/24 09:59 2 GM Dextrose (D50w) 50 ml AD PRN IV HYPOGLYCEMIA PROTOCOL 12/01/24 01:30 12/31/24 01:29 Doxycycline Hyclate 250 ml @ 125 mls/hr Q12H IV 12/01/24 11:00 12/11/24 10:59 12/03/24 11:00 125 MLS/HR Enoxaparin Sodium (Lovenox) 30 mg DAILY SQ 12/01/24 09:00 12/01/24 09:32 DC 12/01/24 08:49 30 MG Famotidine (Pepcid 20mg Tab) 20 mg BID PO 12/01/24 09:00 12/02/24 14:42 DC 12/02/24 08:07 20 MG Folic Acid (FOLic ACID 1 MG TABLET) 1 mg DAILY PO 12/04/24 09:00 12/06/24 09:01 Furosemide (LASix 20MG VIAL) 20 mg Q12H IV 12/01/24 09:00 12/01/24 11:13 DC 12/01/24 08:48 20 MG Furosemide (LASix 20MG VIAL) 20 mg Q12H IV 12/01/24 11:30 12/01/24 16:26 DC 12/01/24 11:35 20 MG Furosemide (LASix 40MG VIAL) 40 mg Q12H IV 12/02/24 20:30 12/02/24 14:11 DC Furosemide (LASix 40MG VIAL) 40 mg Q12H IV 12/03/24 11:00 01/02/25 10:59 12/03/24 13:46 40 MG Furosemide (LASix 40MG VIAL) 40 mg Q8H IV 12/01/24 16:30 12/02/24 12:58 DC 12/02/24 08:07 40 MG Furosemide (LASix 40MG VIAL) 40 mg Q8H IV 12/02/24 14:00 12/02/24 14:13 DC Furosemide (LASix 40MG VIAL) 40 mg Q8H IV 12/02/24 14:30 12/02/24 14:39 DC 12/02/24 14:25 40 MG Furosemide 100 mg/ Sodium Chloride 100 ml @ 0 mls/hr PROTOCOL IV 12/02/24 15:00 12/03/24 10:59 DC 12/02/24 15:23 5 MLS/HR Glucagon (Glucagon 1mg Kit) 1 mg AD PRN IM HYPOGLYCEMIA PROTOCOL 12/01/24 01:30 12/31/24 01:29 Guaifenesin/ Dextromethorphan (RobiTUSSin DM 200/20MG 10ML) 10 ml Q4H PRN PO COUGH 12/01/24 01:30 12/31/24 01:29 12/02/24 02:24 10 ML Heparin Sodium/ Dextrose 250 ml @ 0 mls/hr PROTOCOL IV 12/01/24 10:00 12/03/24 11:18 DC 12/03/24 01:19 13.26 MLS/HR Insulin Glargine (LANtus 100 UNITS/ML 10 ML VIAL) 10 units HS SQ 12/01/24 21:00 12/02/24 08:18 DC 12/01/24 20:18 10 UNITS Insulin Glargine (LANtus 100 UNITS/ML 10 ML VIAL) 20 units BID SQ 12/02/24 09:00 12/31/24 20:59 12/03/24 10:01 20 UNITS Insulin Human Regular (humuLIN R 100 UNIT/ML 3ML) INSULIN SLIDING SCAL... ACHS SQ 12/01/24 07:30 12/31/24 07:29 12/03/24 06:13 2 UNIT Ipratropium [place] (AtrovENT UD) 0.5 MG [id number] IH 12/02/24 18:00 12/02/24 14:13 DC Ipratropium [place] (AtrovENT UD) 0.5 mg [id number] IH 12/03/24 00:00 01/02/25 00:00 12/03/24 13:43 0.5 MG Lorazepam (AtiVAN) 2 mg Q4H PRN IVP ALCOHOL WITHDRAWAL PROTOCOL 12/03/24 11:00 12/10/24 10:59 Lorazepam (AtiVAN) 4 mg Q2H PRN IVP ALCOHOL WITHDRAWAL PROTOCOL 12/03/24 11:00 12/10/24 10:59 Magnesium Sulfate 50 ml @ 0 mls/hr PROTOCOL PRN IV OTHER [SEE ORDER COMMENTS] 12/01/24 01:30 12/31/24 01:29 12/02/24 05:57 25 MLS/HR Methylprednisolone Sodium Succinate (Solu-medROL 40MG) 40 mg BID IVP 12/02/24 21:00 01/01/25 20:59 12/03/24 09:56 40 MG Metoprolol Succinate (TopROL XL) 25 mg DAILY PO 12/04/24 09:00 01/03/25 08:59 Midodrine (PROAMatine 5 MG TABLET) 10 mg TID PO 12/03/24 14:00 01/02/25 13:59 Montelukast Sodium (SinguLAIR) 10 mg DAILY PO 12/03/24 09:00 01/02/25 08:59 12/03/24 09:56 10 MG Multivitamins Therapeutic (Multivitamin Tablet) 1 tab DAILY PO 12/04/24 09:00 01/03/25 08:59 Nitroglycerin (Nitroglycerin 1gm Oint) 0.5 inch Q8H TD 12/01/24 01:30 12/31/24 01:29 12/03/24 09:58 0.5 INCH Nitroglycerin (Nitrostat) 0.4 mg PROTOCOL PRN SL CHEST PAIN 12/01/24 01:30 12/31/24 01:29 Ondansetron HCl (zoFRAN 4MG INJ) 4 mg Q4H PRN IV NAUSEA 12/03/24 11:00 01/02/25 10:59 Ondansetron HCl (zoFRAN 4MG INJ) 4 mg Q6H PRN IV NAUSEA/VOMITING 12/01/24 01:30 12/03/24 10:51 DC Pantoprazole Sodium (PROTonix 40MG INJ) 40 mg DAILY IVP 12/03/24 09:00 01/02/25 08:59 12/03/24 09:56 40 MG Pharmacy Profile Note (Pharmacy Communication) 1 each ONCE MISC 12/02/24 15:00 12/03/24 07:13 DC Pharmacy Profile Note (Pharmacy Communication) 1 each PROTOCOL PRN MISC ETOH Withdrawal Score changes 12/03/24 11:00 12/10/24 10:59 Piperacillin Sod/ Tazobactam Sod (Zosyn 3.375gm+NS 50ml) 3.375 gm Q8H IV 12/02/24 15:00 12/12/24 14:59 12/03/24 06:14 3.375 GM Potassium Chloride 100 ml @ 100 mls/hr AD PRN IV POTASSIUM PROTOCOL 12/01/24 01:30 12/31/24 01:29 Potassium Chloride (K-Dur/Klor-Con 20meq) 20 meq AD PRN PO POTASSIUM PROTOCOL 12/01/24 01:30 12/31/24 01:29 12/03/24 01:08 20 MEQ Potassium Chloride (KCl 10% Elixir 20meq/15ml) 20 meq AD PRN PO POTASSIUM PROTOCOL 12/01/24 01:30 12/31/24 01:29 Promethazine HCl (Phenergan) 25 mg Q6H PRN PO NAUSEA 12/03/24 11:00 01/02/25 10:59 Thiamine HCl (Vitamin B-1) 300 mg DAILY IM 12/04/24 09:00 12/06/24 09:01 DIAGNOSTICS / RADIOLOGY: [ ] ASSESSMENT: Acute respiratory failure with hypoxia POA NSTEMI POA Suspected acute CHF POA Uncontrolled diabetes with hyperglycemia POA Normocytic normochromic anemia POA Acute thrombocytosis POA Pseudohyponatremia secondary to hyperglycemia POA Hyperlipidemia POA Nicotine dependence POA Positive amphetamines POA PLAN: Continue admission to PCU Continue CPAP Continue on consistent carb and heart healthy diet Continue Famotidine 20 mg p.o. bid for GI prophylaxis Continue lasix drip Discontinue heparin drip, follow up with Cardiology regarding chronic ant icoagulation Continue aspirin 81 mg p.o. daily Daily weight and strict I&O Fluid restriction 1.5 L per day Continue to follow cardiology recommendations. Continue to follow Pulmonary input and recommendation Case discussed with attending physician and came up with above treatment and plan of care. Possible CCTA per Cardiology once more stable Total time spent 30 minutes. Disposition: Pending diuresis and Cardiology recommendations RASHEED GARCIA MD Dec 03, 2024 14:14
[2024-12-03] MEDS ORDERED: atorVAStatin 10 MG TABLET PO SCH (21:00)
[2024-12-03] MEDS: atorVAStatin 40 MG TABLET PO SCH (21:13)
[2024-12-04] VITALS (17 sets, daily range): BP systolic 82–118; BP diastolic 53–78; PULSE 72–86; RESP 15–22; TEMP 97.2–98.6; O2SAT 93–100
--- NOTE | 2024-12-04 01:27 | NUR ---
PTT AT 51.3, THERAPEUTIC. NO CHANGE NEEDED. WILL CONTINUE ON HEPARIN AT 17 UNITS/KG/HR. NEXT PTT DUE AT 0600AM.
[2024-12-04] MEDS: furoSEMIDE 40MG VIAL IV SCH (01:36)
[2024-12-04] MEDS: HEParin 25,000 UNITS/250ML D5W 250 ML IV SCH (01:52)
[2024-12-04 04:23] LABS: BASOPHILS # (AUTO) 0.02 K/uL (0.00-0.20); BASOPHILS % (AUTO) 0.1 % (0.0-5.0); EOSINOPHILS # (AUTO) 0.01 K/uL (0.00-0.70); HEMATOCRIT 33.6 % (42-54); IMMATURE GRANULOCYTE ABSOLUTE 0.16 K/uL (0-1); LYMPHOCYTES # (AUTO) 0.9 K/uL (1.0-4.8); LYMPHOCYTES % (AUTO) 4.3 % (21.0-51.0); MEAN CORPUSCULAR HEMOGLOBIN 28.9 pg (27.0-33.0); MEAN CORPUSCULAR VOLUME 87.5 fL (79-99); MONOCYTES # (AUTO) 0.7 K/uL (0.1-1.0); MONOCYTES % (AUTO) 3.2 % (3.0-13.0); NEUTROPHILS # (AUTO) 18.8 K/uL (1.8-7.7); NEUTROPHILS % (AUTO) 91.6 % (40.0-77.0); PLATELET COUNT (AUTO) 499 K/uL (130-400); RED BLOOD CELL COUNT(AUTO) 3.84 MIL/uL (4.50-6.20); RED CELL DISTRIBUTION WIDTH 12.6 % (11.0-15.5); WHITE BLOOD COUNT (AUTO) 20.5 K/uL (4.8-10.8)
[2024-12-04 04:28] LABS: CREATININE 1.2 mg/dL (0.5-1.3); PHOSPHORUS 3.7 mg/dL (2.5-4.9); POTASSIUM 3.7 mmol/L (3.5-5.1)
[2024-12-04] MEDS: Solu-medROL 40MG VIAL IVP SCH (06:19)
--- NOTE | 2024-12-04 08:22 | PN ---
[facility] CARDIOLOGY PROGRESS NOTE Date Patient Seen: Dec 04, 2024 Time of Visit: 08:10 Interval History: [ No acute events overnight , currently denies any chest pain , palpitations , dyspnea or any other anginal equivalents. Overnight urinary output 1200 ml. Renal function stable , Cr 1.2. ] Physical Examination: GENERAL: [No acute distress.] HEAD: [Normal with no signs of head trauma.] EYES: [PERRLA, EOMI, conjunctiva and sclera normal.] ENT: [Hearing grossly intact, normal oropharynx.] NECK: [Supple without JVD. There is no tenderness, lymphadenopathy, or masses. No thyromegaly. Normal carotid upstrokes without bruits.] LUNGS: [rales bilaterally] HEART: [Normal rate and rhythm. Normal S1 and S2 without murmurs, gallop or rub.] VASC: [Peripheral pulses +2 bilaterally.] ABD: [Bowel sounds normal, soft, nontender, no masses, no organomegaly. No audible bruits.] : [Not examined] LYMPH: [No lymphadenopathy noted.] EXT: [1+ edema.] SKIN: [No rashes or lesions noted.] NEURO: [Awake, alert, and oriented x3. No focal sensory or strength deficits noted.] Laboratory: [ ] Hematology Labs: Test 12/04/24 03:48 12/03/24 11:15 Range/Units White Blood Count 20.5 #H 4.8-10.8 K/uL Red Blood Count 3.84 L 4.50-6.20 MIL/uL Hemoglobin 11.1 L 14.0-18.0 g/dL Hematocrit 33.6 L 42-54 % Mean Corpuscular Volume 87.5 79-99 fL Mean Corpuscular Hemoglobin 28.9 27.0-33.0 pg Mean Corpuscular Hemoglobin Concent 33.0 32.0-36.0 g/dL Red Cell Distribution Width 12.6 11.0-15.5 % Platelet Count 499 H 130-400 K/uL Mean Platelet Volume 9.6 7.5-10.5 fL Immature Granulocyte % (Auto) 0.8 0-1 % Neutrophils (%) (Auto) 91.6 H 40.0-77.0 % Lymphocytes (%) (Auto) 4.3 L 21.0-51.0 % Monocytes (%) (Auto) 3.2 3.0-13.0 % Eosinophils (%) (Auto) 0.0 0.0-8.0 % Basophils (%) (Auto) 0.1 0.0-5.0 % Neutrophils # (Auto) 18.8 H 1.8-7.7 K/uL Lymphocytes # (Auto) 0.9 L 1.0-4.8 K/uL Monocytes # (Auto) 0.7 0.1-1.0 K/uL Eosinophils # (Auto) 0.01 0.00-0.70 K/uL Basophils # (Auto) 0.02 0.00-0.20 K/uL Absolute Immature Granulocyte (auto 0.16 0-1 K/uL Nucleated Red Blood Cells 0.0 0.0-0.19 % White Cell Morphology Comment See comments Chemistry Labs: Test 12/04/24 05:56 12/04/24 03:48 12/03/24 16:24 12/03/24 11:15 Range/Units Whole Blood Glucose 285 H 70-110 MG/DL Sodium Level 134 L 136-145 mmol/L Potassium Level 3.7 3.5-5.1 mmol/L Chloride Level 100 L 101-111 mmol/L Carbon Dioxide Level 28 21-32 mmol/L Blood Urea Nitrogen 31 H 7-18 mg/dL Creatinine 1.2 0.5-1.3 mg/dL Glomerular Filtration Rate Calc 75 >90 mL/min Random Glucose 290 H 70-105 mg/dL Total Calcium 8.6 8.5-10.1 mg/dL Phosphorus Level 3.7 2.5-4.9 mg/dL Magnesium Level 2.00 1.80-2.40 mg/dL Bedside Glucose Comment Notified Nurse Total Bilirubin 0.4 0.2-1.0 mg/dL Aspartate Amino Transf (AST/SGOT) 22 10-37 U/L Alanine Aminotransferase (ALT/SGPT) 23 12-78 U/L Alkaline Phosphatase 135 50-136 U/L B-Type Natriuretic Peptide 1560 H 0-100 pg/mL Total Protein 7.0 6.0-8.3 g/dL Albumin 1.9 L 3.5-5.0 g/dL Coagulation Labs: Test 12/04/24 06:22 Range/Units Activated Partial Thromboplast Time 68.2 #H 26.3-35.5 SEC Diagnostics / Radiology: [Copy/Paste Echos/Imaging Report here] Impression and Plan: [Elevated Trop 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 No need to trend enzymes. - amphetamine use - lasix 40 mg IV q12h, Cr stable at 1.2 Urine output 24 hrs : 1200 ml , recommend to continue diuresis one more day monitor daily CXR -Continue asa 325 mg x1, asa 81 mg qd and plavix 300 mg x1 - Lipitor 40 mg QHS. #HFrEF LVEF 25-30% -likely driven by amphetamine -GDMT optimization: Stop pindolol and Toprol XL -BP wont tolerate Entresto - Strict I-Os / daily weights -unknown etiology, will plan outpatient CCTA once hemodynamically stable and euvolemic #DVT L popliteal -change heprin gtt to eliquis 5 mg bid once PTT normal Thank you for this consult. We will continue to follow along. Vivian Gandhi MD ] VIVIAN GANDHI MD Dec 04, 2024 08:22
[2024-12-04] MEDS: MULTIVITAMIN TABLET PO SCH (09:56)
[2024-12-04] MEDS: FOLic ACID 1 MG TABLET PO SCH (09:56)
[2024-12-04] MEDS: metOPROLol sucCINATE 25 MG TAB.SR.24H PO SCH (09:57)
[2024-12-04] MEDS: THIAMINE HCL 100 MG/ML 2ML VIAL IM SCH (09:57)
--- NOTE | 2024-12-04 10:12 | PN ---
[facility] PROGRESS NOTE Date Patient Seen: Dec 04, 2024 Time of Visit: 10:12 Supervising Physician: Dr. 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 He appeared moderate distress. Sinus tachycardic 114 beats per minute respiratory rate of 24 saturating 94% with 3 L via nasal cannula and afebrile. Patient had urine output of 1.9 L in the last 24 hours with a balance of-1.5 L. he is currently on Lasix 40 mg q.8 hours IV. Chest x-ray shows [place] pulmonary edema with multifocal bilateral infiltrates. ABG was done with results of pH of 7.45 pCO2 of 32 PO2 of 63 and bicarb 21.8 consistent with respiratory alkalosis from over breathing due to hypoxemia. Place patient on Lasix drip 5 milligrams/hour and CPAP machine with pressure support of 10 FiO2 of 50%. Patient tolerating it well. WBCs of 14.6 H&H of 12.1/36.4. On chemistries sodium 131 chloride 95 kidneys are doing well creatinine 1.0 GFR of 93 glucose has been elevated 272 mg/dL this morning added Lantus. Due to severe pneumoniae in the history of smoking change Rocephin to Zosyn to cover for Pseudomonas. Added Solu-Medrol 40 mg b.i.d. for severe pneumonia. Dr Gandhi electric appliance installer updated and we will continue to follow cardiology recommendations. Patient to continue with aspirin, beta simón, statin therapy per ACS guidelines and he continues currently on a heparin drip For NSTEMI. I have updated patient and who was at the bedside with current clinical findings and plan of care. Both verbalized understanding and answered all their questions. They are both in agreement with plan of care. 12/04/2024: At the time of my evaluation, the patient was sitting up in bed. He reports feeling much better today. The patient is awake alert and oriented x4, he is verbally interactive with appropriate responses. Currently, the patient is requiring oxygen supplementation with nasal cannula 2 liters/minute and denies any shortness of breath. He remains on Solu-Medrol 20 mg q.8 hours. Ca rdiac-mercado, the patient is hemodynamically stable, with blood pressure trends marginally low. He remains on a heparin drip. Chemistry panel obtained today shows a sodium of 134, potassium of 3.7, chloride 100, CO2 of 28, BUN 31 creatinine of 1.2 and blood glucose of 290. Patient had a cumulative balance of positive 212.0. On CBC, the patient had a WBC of 20.5, H&H 11.1/33.6 and a platelet count of 499. The patient remains on antibiotic coverage with Zosyn and doxy. Respiratory cultures showing Yesica albicans. Blood cultures x2 were negative. Staff nurse reports no acute events overnight. No other complaint. REVIEW OF SYSTEMS: 12 point ROS reviewed with patient. Pertinent positives mentioned above. Otherwise negative. PHYSICAL EXAM: GENERAL: alert, weak, awake oriented x 3 HEENT: EOMI, Sclera non icteric, moist mucosa NECK: Supple, no JVD, trachea midline LUNGS: Diminished breath sounds bilaterally. No wheezes HEART: Regular rate and rhythm. Normal S1 and S2, without murmurs ABD: Abdomen soft, nontender. Bowel sounds present EXT: No clubbing cyanosis or edema, + 1 pitting edema to LLE, NEURO: Alert and oriented to person, follows commands Vital Signs (last 8hr) Date Time Temp Pulse Resp B/P (MAP) Pulse Ox O2 Delivery O2 Flow Rate FiO2 12/04/24 07:00 97.5 75 22 96/53 93 Nasal Cannula 3.0 12/04/24 05:29 97.5 72 20 95/57 100 BIPAP 12/04/24 02:24 86 15 40 LABS: Hematology Labs: Test 12/04/24 03:48 12/03/24 11:15 Range/Units White Blood Count 20.5 #H 4.8-10.8 K/uL Red Blood Count 3.84 L 4.50-6.20 MIL/uL Hemoglobin 11.1 L 14.0-18.0 g/dL Hematocrit 33.6 L 42-54 % Mean Corpuscular Volume 87.5 79-99 fL Mean Corpuscular Hemoglobin 28.9 27.0-33.0 pg Mean Corpuscular Hemoglobin Concent 33.0 32.0-36.0 g/dL Red Cell Distribution Width 12.6 11.0-15.5 % Platelet Count 499 H 130-400 K/uL Mean Platelet Volume 9.6 7.5-10.5 fL Immature Granulocyte % (Auto) 0.8 0-1 % Neutrophils (%) (Auto) 91.6 H 40.0-77.0 % Lymphocytes (%) (Auto) 4.3 L 21.0-51.0 % Monocytes (%) (Auto) 3.2 3.0-13.0 % Eosinophils (%) (Auto) 0.0 0.0-8.0 % Basophils (%) (Auto) 0.1 0.0-5.0 % Neutrophils # (Auto) 18.8 H 1.8-7.7 K/uL Lymphocytes # (Auto) 0.9 L 1.0-4.8 K/uL Monocytes # (Auto) 0.7 0.1-1.0 K/uL Eosinophils # (Auto) 0.01 0.00-0.70 K/uL Basophils # (Auto) 0.02 0.00-0.20 K/uL Absolute Immature Granulocyte (auto 0.16 0-1 K/uL Nucleated Red Blood Cells 0.0 0.0-0.19 % White Cell Morphology Comment See comments Chemistry Labs: Test 12/04/24 05:56 12/04/24 03:48 12/03/24 16:24 12/03/24 11:15 Range/Units Whole Blood Glucose 285 H 70-110 MG/DL Sodium Level 134 L 136-145 mmol/L Potassium Level 3.7 3.5-5.1 mmol/L Chloride Level 100 L 101-111 mmol/L Carbon Dioxide Level 28 21-32 mmol/L Blood Urea Nitrogen 31 H 7-18 mg/dL Creatinine 1.2 0.5-1.3 mg/dL Glomerular Filtration Rate Calc 75 >90 mL/min Random Glucose 290 H 70-105 mg/dL Total Calcium 8.6 8.5-10.1 mg/dL Phosphorus Level 3.7 2.5-4.9 mg/dL Magnesium Level 2.00 1.80-2.40 mg/dL Bedside Glucose Comment Notified Nurse Total Bilirubin 0.4 0.2-1.0 mg/dL Aspartate Amino Transf (AST/SGOT) 22 10-37 U/L Alanine Aminotransferase (ALT/SGPT) 23 12-78 U/L Alkaline Phosphatase 135 50-136 U/L B-Type Natriuretic Peptide 1560 H 0-100 pg/mL Total Protein 7.0 6.0-8.3 g/dL Albumin 1.9 L 3.5-5.0 g/dL Coagulation Labs: Test 12/04/24 06:22 Range/Units Activated Partial Thromboplast Time 68.2 #H 26.3-35.5 SEC DIAGNOSTICS / RADIOLOGY RESULTS: [ ] PLAN IV ABX with zosyn and doxy stop lasix drip continue with lasix IVP Continue heparin for now for DVT until PO AC has been started cpap cardiac monitoring dc duoneb start atrovent nebs prn Solu-Medrol 40mg ivp bid for severe pneumonia, wean as possible now 20mg IVP q8hrs hepatitis panel follow cardiology recommendations currently on heparin gtt -Arrange outpatient pulmonology referral for sleep study, PFT and follow-up management upon discharge singulair protonix for GI PPX fc placement HIV ltest with reflex negative monito resp status closely, repeat abg if decline in resp status he is high risk for decompensations. 12/04/2024: For now, going to continue current management for the patient. We will continue oxygen supplementation via the nasal cannula. Also, the patient is going to remain on steroid therapy. We will order chest x-ray for tomorrow. The patient will remain on a heparin drip and we will follow the Cardiology input on management. We are going to monitor the WBC trend and treat accordingly. We will continue antibiotic course with Zosyn and doxy as ordered. We will repeat surveillance labs in the morning. We will monitor the patient's progress and response to management. We will continue to provide general supportive care, GI and DVT prophylaxis. Further orders per attending MD and hospital course. NEURO: Minimize central acting medications as possible. Maintain fall precautions, adequate lighting during the day PULMONARY: Supplemental 02 as needed. Maintain aspiration precautions at all times CARDIOVASCULAR: Follow hemodynamics. Vital signs per facility protocol GI & NUTRITION: Continue with nutritional support. Continue stool softeners and laxatives as needed. KIDNEYS & ELECTROLYTES: Strict monitoring of intake, output and overall fluid balance. Avoid nephrotoxic medications to the extent possible. Medications to be dosed according to renal function. Monitor electrolytes and replace as needed ENDOCRINE: Maintain blood glucose between 100-180 at all times. Hypoglycemia protocol in place INFECTIOUS DISEASE: Trend temperature, WBC and procalcitonin level Follow cultures, deescalate antibiotics as soon as possible. Panculture if new onset fever ONCOLOGY/HEMATOLOGY/COAGULATION: Monitor for s/s of bleeding Monitor hemoglobin, coagulation studies as needed SKIN: Pressure ulcer prevention per facility protocol Specialty mattress ORTHO/REHAB: Continue PT/OT Prophylaxis: Continue GI and DVT prophylaxis Code Status: Full Resuscitation Disposition: TBD Other: Total patient care time exceeds 35 minutes excluding all procedures. AFSHAN BURGESS NP Dec 04, 2024 10:12
--- NOTE | 2024-12-04 10:14 | HMCIMG ---
FRONTAL CHEST RADIOGRAPH INDICATION: hypoxic rep failure COMPARISON: 12/03/2024 FINDINGS/IMPRESSION: front desk monitor leads overlie the field of view. Stable normal heart size. Favorable decrease in left lung greater than right upper lung opacities. Continued follow-up is advised in order to ensure complete resolution.
[2024-12-04] MEDS: INSULIN GLARgine 100 UNITS/ML 10 ML VIAL SQ SCH (10:15)
[2024-12-04] MEDS: miDODRine HCL 5 MG TABLET PO SCH (15:36)
--- NOTE | 2024-12-04 16:03 | PN ---
[facility] PROGRESS NOTE Date of Service: Dec 04, 2024 Time of Service: 15:58 SUBJECTIVE: This is a 49-year-old male with past medical history of diabetes, hyperlipidemia and hypertension who presented to the ED for complaints of left-sided chest pain. Labs in the ER WBC 11.7 with negative left shift of neutrophils 77.6, hemoglobin 13.1, hematocrit 39.4 platelet count 462. Sodium 131, potassium 4.5, chloride 95, carbon dioxide 34 glucose 488, ketones 0.2, troponin 1732 to 1661 BNP 1180. EKG result revealed sinus tachycardia heart rate 118 with probable anterior infarct age indeterminate. Toxicology screen positive for amphetamines. Patient seen and examined, still mildy tachycardic. During my visit patient on CPAP, alert oriented x3, following commands, admits to feeling less shortness a breath compared to time of admission. He has been started on Lasix drip. Also on heparin drip. Echocardiogram showed LVEF 25- Cardiology input noted and appreciated. Plan for inpatient vs outpatient CCTA. 3 patient seen at bedside, no acute events overnight. He is diuresing well with a proximally five point L urine output, Lasix drip has been deescalated to oral Lasix 40 mg 3 times daily. He has been afebrile, hemodynamically stable continues on BiPAP. Blood pressure has been on the low side of normal, was started on midodrine, we will discuss the use of midodrine in the setting of severe CHF as it can be contraindicated. Remainder of his labs are relatively unremarkable. Venous Doppler showing DVT with noncompressible thrombus in the left popliteal vein, heparin drip discontinued today we will follow up with Cardiology regarding anticoagulation. 12/04 patient seen at bedside, no acute events overnight. He continues to diurese, cardiology recommending one more day of diuresis and transition to Eliquis from heparin. He has been afebrile, hemodynamically stable, his blood pressure is on the low side of normal, we will hold Entresto as he does not have the reserve to tolerate the medication, midodrine has been increased to 15 mg t.i.d., WBC increased from 12.1 up to 20.5, hemoglobin decreased from 11.8 down to 11.1, platelets 499, similar to yesterday, creatinine increased from 1.0 up to 1.2, remainder of his labs are relatively unremarkable. REVIEW OF SYSTEMS CONSTITUTIONAL: Denies fevers, chills, or night sweats. No unintentional weight loss reported. NEUROLOGICAL: Denies headache, amaurosis fugax, motor weakness, sensory deficit, vertigo/spinning sensation, gait abnormalities, or tremors. ENT: No hearing loss, otalgia, otorrhea, rhinitis, rhinorrhea, hoarseness, or sore throat. CARDIOVASCULAR: Complaints of chest pain dyspnea on exertion orthopnea Denies paroxysmal nocturnal dyspnea, palpitations, life-threatening arrhythmias, claudication. PULMONARY: Complaints of shortness of breaths and dry cough Denies phlegm/sputum, hemoptysis, pleuritic chest pain. SLEEP: Denies morning headaches, daytime somnolence or napping. Denies difficulty falling asleep, staying asleep, waking from sleep. Denies knowledge of snoring. GASTROINTESTINAL: Denies any type of dysphagia to either liquids or solids. Denies nausea, vomiting, pyrosis, early satiety, abdominal pain, diarrhea, constipation, or changes in stool consistency or caliber. Denies coffee-ground emesis, hematemesis, hematochezia, or melanotic stools. GENITOURINARY: Denies frequency, urgency, nocturia, hematuria or incontinence (Storage/Irritative symptoms.) Low urinary stream, straining to void, urinary intermittency or hesitancy, splitting of the voiding stream, terminal dribbling. ENDOCRINOLOGIC: Denies polyuria, polydipsia, polyphagia or heat/cold intolerances. HEMATOLOGIC: Denies thrombophilia/previous clots, or coagulopathy/bleeding disorders. ONCOLOGIC: Denies personal history of malignancy. DERMATOLOGIC: Denies rashes or pruritus. PSYCHIATRIC: Denies any suicidal or homicidal ideation. Denies hallucinations. PHYSICAL EXAM GENERAL APPEARANCE: The patient is awake, alert, and oriented, in no acute cardiopulmonary distress. NEUROLOGICAL: Cranial nerves II-XII grossly intact. Motor is 5/5 in bilateral upper and lower extremities proximal to distal. No sensory deficits. HEENT: Face is symmetric. Pupils are equal and reactive. Extraocular movements are intact. NECK: Supple. No JVD. No thyromegaly. No submental, submandibular, pre- /postauricular, occipital or supraclavicular lymphadenopathy. CHEST: Normal chest expansion. Telemetry. LUNGS: Crackles to the lower bases on both lung correa per auscultation CARDIOVASCULAR: Tachycardic and Regular. S1 and S2 normal. No appreciable rubs, murmurs or gallops. ABDOMEN: Soft, nontender, and nondistended. There is no rebound, voluntary guarding, or rigidity. : Deferred. No [place]. EXTREMITIES: 2+ edema to bilateral lower extremities Good capillary refill. SKIN: No skin breakdown. Vital Signs (last 8hr) Date Time Temp Pulse Resp B/P (MAP) Pulse Ox O2 Delivery O2 Flow Rate FiO2 12/04/24 12:04 85 18 12/04/24 11:34 79 20 87/62 95 Nasal Cannula 3.0 12/04/24 11:30 97.9 82 20 87/61 94 Nasal Cannula 3.0 12/04/24 10:47 95 Nasal Cannula* 4 25 Bi-PAP+ 12/04/24 08:32 83 20 82/58 96 Nasal Cannula 3.0 12/04/24 08:10 85 20 N/Cannula Low lpm 3.0 32 LABS: Laboratory: Test 12/04/24 11:35 12/04/24 06:22 12/04/24 03:48 12/03/24 11:15 Range/Units Whole Blood Glucose 367 H 70-110 MG/DL Bedside Glucose Comment Notified Nurse Activated Partial Thromboplast Time 68.2 #H 26.3-35.5 SEC White Blood Count 20.5 #H 4.8-10.8 K/uL Red Blood Count 3.84 L 4.50-6.20 MIL/uL Hemoglobin 11.1 L 14.0-18.0 g/dL Hematocrit 33.6 L 42-54 % Mean Corpuscular Volume 87.5 79-99 fL Mean Corpuscular Hemoglobin 28.9 27.0-33.0 pg Mean Corpuscular Hemoglobin Concent 33.0 32.0-36.0 g/dL Red Cell Distribution Width 12.6 11.0-15.5 % Platelet Count 499 H 130-400 K/uL Mean Platelet Volume 9.6 7.5-10.5 fL Immature Granulocyte % (Auto) 0.8 0-1 % Neutrophils (%) (Auto) 91.6 H 40.0-77.0 % Lymphocytes (%) (Auto) 4.3 L 21.0-51.0 % Monocytes (%) (Auto) 3.2 3.0-13.0 % Eosinophils (%) (Auto) 0.0 0.0-8.0 % Basophils (%) (Auto) 0.1 0.0-5.0 % Neutrophils # (Auto) 18.8 H 1.8-7.7 K/uL Lymphocytes # (Auto) 0.9 L 1.0-4.8 K/uL Monocytes # (Auto) 0.7 0.1-1.0 K/uL Eosinophils # (Auto) 0.01 0.00-0.70 K/uL Basophils # (Auto) 0.02 0.00-0.20 K/uL Absolute Immature Granulocyte (auto 0.16 0-1 K/uL Nucleated Red Blood Cells 0.0 0.0-0.19 % Sodium Level 134 L 136-145 mmol/L Potassium Level 3.7 3.5-5.1 mmol/L Chloride Level 100 L 101-111 mmol/L Carbon Dioxide Level 28 21-32 mmol/L Blood Urea Nitrogen 31 H 7-18 mg/dL Creatinine 1.2 0.5-1.3 mg/dL Glomerular Filtration Rate Calc 75 >90 mL/min Random Glucose 290 H 70-105 mg/dL Total Calcium 8.6 8.5-10.1 mg/dL Phosphorus Level 3.7 2.5-4.9 mg/dL Magnesium Level 2.00 1.80-2.40 mg/dL White Cell Morphology Comment See comments Total Bilirubin 0.4 0.2-1.0 mg/dL Aspartate Amino Transf (AST/SGOT) 22 10-37 U/L Alanine Aminotransferase (ALT/SGPT) 23 12-78 U/L Alkaline Phosphatase 135 50-136 U/L B-Type Natriuretic Peptide 1560 H 0-100 pg/mL Total Protein 7.0 6.0-8.3 g/dL Albumin 1.9 L 3.5-5.0 g/dL Serum Alcohol < 3 0-10 mg/dL Current Medications Medications (Trade) Dose Ordered Sig/Nasim Route PRN Reason Start Time Stop Time Status Last Admin Dose Admin Acetaminophen (TYLenol 325MG TAB) 650 mg Q4H PRN PO MILD PAIN (1-3) 12/01/24 01:30 12/31/24 01:29 12/01/24 20:18 650 MG Acetaminophen (TYLenol 325MG TAB) 650 mg Q6H PRN PO TEMPERATURE GREATER THAN 101.5 12/01/24 01:30 12/31/24 01:29 Albuterol (DUOneb) 1 udvial [id number] PRN IH COUGH 12/01/24 01:30 12/02/24 19:26 DC 12/02/24 18:55 1 UDVIAL Aspirin (Aspirin 81mg Ec Tab) 81 mg DAILY PO 12/01/24 09:00 12/31/24 08:59 12/04/24 09:58 81 MG Atenolol (Atenolol) 50 mg DAILY PO 12/01/24 09:00 12/03/24 11:18 DC 12/03/24 09:57 50 MG Atorvastatin Calcium (LIPItor 10MG) 5 mg DAILY PO 12/01/24 09:00 12/03/24 07:13 DC 12/02/24 08:07 5 MG Atorvastatin Calcium (LIPItor 10MG) 5 mg HS PO 12/03/24 21:00 12/03/24 11:22 DC Atorvastatin Calcium (LIPItor 40MG) 40 mg HS PO 12/03/24 21:00 01/02/25 20:59 12/03/24 21:13 40 MG Ceftriaxone Sodium (ROCEphine 1G INJ) 1 gm Q24H IVPB 12/01/24 09:30 12/02/24 08:16 DC 12/01/24 09:48 1 GM Ceftriaxone Sodium (Rocephin 2gm Inj) 2 gm Q24H IVPB 12/02/24 09:30 12/02/24 14:39 DC 12/02/24 09:59 2 GM Dextrose (D50w) 50 ml AD PRN IV HYPOGLYCEMIA PROTOCOL 12/01/24 01:30 12/31/24 01:29 Doxycycline Hyclate 250 ml @ 125 mls/hr Q12H IV 12/01/24 11:00 12/11/24 10:59 12/04/24 12:03 125 MLS/HR Enoxaparin Sodium (Lovenox) 30 mg DAILY SQ 12/01/24 09:00 12/01/24 09:32 DC 12/01/24 08:49 30 MG Famotidine (Pepcid 20mg Tab) 20 mg BID PO 12/01/24 09:00 12/02/24 14:42 DC 12/02/24 08:07 20 MG Folic Acid (FOLic ACID 1 MG TABLET) 1 mg DAILY PO 12/04/24 09:00 12/06/24 09:01 12/04/24 09:56 1 MG Furosemide (LASix 20MG VIAL) 20 mg Q12H IV 12/01/24 09:00 12/01/24 11:13 DC 12/01/24 08:48 20 MG Furosemide (LASix 20MG VIAL) 20 mg Q12H IV 12/01/24 11:30 12/01/24 16:26 DC 12/01/24 11:35 20 MG Furosemide (LASix 40MG VIAL) 40 mg Q12H IV 12/02/24 20:30 12/02/24 14:11 DC Furosemide (LASix 40MG VIAL) 40 mg Q12H IV 12/03/24 11:00 12/03/24 22:10 DC 12/03/24 13:46 40 MG Furosemide (LASix 40MG VIAL) 40 mg Q12H IV 12/04/24 02:30 01/03/25 02:29 12/04/24 01:36 40 MG Furosemide (LASix 40MG VIAL) 40 mg Q8H IV 12/01/24 16:30 12/02/24 12:58 DC 12/02/24 08:07 40 MG Furosemide (LASix 40MG VIAL) 40 mg Q8H IV 12/02/24 14:00 12/02/24 14:13 DC Furosemide (LASix 40MG VIAL) 40 mg Q8H IV 12/02/24 14:30 12/02/24 14:39 DC 12/02/24 14:25 40 MG Furosemide 100 mg/ Sodium Chloride 100 ml @ 0 mls/hr PROTOCOL IV 12/02/24 15:00 12/03/24 10:59 DC 12/02/24 15:23 5 MLS/HR Glucagon (Glucagon 1mg Kit) 1 mg AD PRN IM HYPOGLYCEMIA PROTOCOL 12/01/24 01:30 12/31/24 01:29 Guaifenesin/ Dextromethorphan (RobiTUSSin DM 200/20MG 10ML) 10 ml Q4H PRN PO COUGH 12/01/24 01:30 12/31/24 01:29 12/04/24 10:00 10 ML Heparin Sodium/ Dextrose 250 ml @ 0 mls/hr PROTOCOL IV 12/01/24 10:00 12/03/24 11:18 DC 12/03/24 01:19 13.26 MLS/HR Heparin Sodium/ Dextrose 250 ml @ 0 mls/hr PROTOCOL IV 12/03/24 17:30 01/02/25 17:29 12/04/24 01:52 12.71 MLS/HR Insulin Glargine (LANtus 100 UNITS/ML 10 ML VIAL) 10 units HS SQ 12/01/24 21:00 12/02/24 08:18 DC 12/01/24 20:18 10 UNITS Insulin Glargine (LANtus 100 UNITS/ML 10 ML VIAL) 20 units BID SQ 12/02/24 09:00 12/04/24 00:00 DC 12/03/24 21:44 20 UNITS Insulin Glargine (LANtus 100 UNITS/ML 10 ML VIAL) 30 units BID SQ 12/04/24 09:00 01/03/25 08:59 12/04/24 10:15 30 UNITS Insulin Human Regular (humuLIN R 100 UNIT/ML 3ML) INSULIN SLIDING SCAL... ACHS SQ 12/01/24 07:30 12/31/24 07:29 12/04/24 10:14 30 UNIT Ipratropium [place] (AtrovENT UD) 0.5 MG [id number] IH 12/02/24 18:00 12/02/24 14:13 DC Ipratropium [place] (AtrovENT UD) 0.5 mg [id number] IH 12/03/24 00:00 01/02/25 00:00 12/04/24 12:04 0.5 MG Lorazepam (AtiVAN) 2 mg Q4H PRN IVP ALCOHOL WITHDRAWAL PROTOCOL 12/03/24 11:00 12/10/24 10:59 Lorazepam (AtiVAN) 4 mg Q2H PRN IVP ALCOHOL WITHDRAWAL PROTOCOL 12/03/24 11:00 12/10/24 10:59 Magnesium Sulfate 50 ml @ 0 mls/hr PROTOCOL PRN IV OTHER [SEE ORDER COMMENTS] 12/01/24 01:30 12/31/24 01:29 12/02/24 05:57 25 MLS/HR Methylprednisolone Sodium Succinate (Solu-medROL 40MG) 20 mg Q8H IVP 12/04/24 05:00 01/01/25 20:59 12/04/24 12:17 20 MG Methylprednisolone Sodium Succinate (Solu-medROL 40MG) 40 mg BID IVP 12/02/24 21:00 12/04/24 00:06 DC 12/03/24 21:13 40 MG Metoprolol Succinate (TopROL XL) 25 mg DAILY PO 12/04/24 09:00 01/03/25 08:59 12/04/24 09:57 25 MG Midodrine (PROAMatine 5 MG TABLET) 10 mg TID PO 12/03/24 14:00 12/04/24 13:08 DC 12/04/24 09:56 10 MG Midodrine (PROAMatine 5 MG TABLET) 15 mg TID PO 12/04/24 14:00 01/03/25 13:59 12/04/24 15:36 15 MG Montelukast Sodium (SinguLAIR) 10 mg DAILY PO 12/03/24 09:00 01/02/25 08:59 12/04/24 10:16 10 MG Multivitamins Therapeutic (Multivitamin Tablet) 1 tab DAILY PO 12/04/24 09:00 01/03/25 08:59 12/04/24 09:56 1 TAB Nitroglycerin (Nitroglycerin 1gm Oint) 0.5 inch Q8H TD 12/01/24 01:30 12/31/24 01:29 12/04/24 09:58 0.5 INCH Nitroglycerin (Nitrostat) 0.4 mg PROTOCOL PRN SL CHEST PAIN 12/01/24 01:30 12/31/24 01:29 Ondansetron HCl (zoFRAN 4MG INJ) 4 mg Q4H PRN IV NAUSEA 12/03/24 11:00 01/02/25 10:59 Ondansetron HCl (zoFRAN 4MG INJ) 4 mg Q6H PRN IV NAUSEA/VOMITING 12/01/24 01:30 12/03/24 10:51 DC Pantoprazole Sodium (PROTonix 40MG INJ) 40 mg DAILY IVP 12/03/24 09:00 01/02/25 08:59 12/04/24 09:55 40 MG Pharmacy Profile Note (Pharmacy Communication) 1 each ONCE MISC 12/02/24 15:00 12/03/24 07:13 DC Pharmacy Profile Note (Pharmacy Communication) 1 each PROTOCOL PRN MISC ETOH Withdrawal Score changes 12/03/24 11:00 12/10/24 10:59 Piperacillin Sod/ Tazobactam Sod (Zosyn 3.375gm+NS 50ml) 3.375 gm Q8H IV 12/02/24 15:00 12/12/24 14:59 12/04/24 09:54 3.375 GM Potassium Chloride 100 ml @ 100 mls/hr AD PRN IV POTASSIUM PROTOCOL 12/01/24 01:30 12/31/24 01:29 Potassium Chloride (K-Dur/Klor-Con 20meq) 20 meq AD PRN PO POTASSIUM PROTOCOL 12/01/24 01:30 12/31/24 01:29 12/03/24 01:08 20 MEQ Potassium Chloride (KCl 10% Elixir 20meq/15ml) 20 meq AD PRN PO POTASSIUM PROTOCOL 12/01/24 01:30 12/31/24 01:29 Promethazine HCl (Phenergan) 25 mg Q6H PRN PO NAUSEA 12/03/24 11:00 01/02/25 10:59 Thiamine HCl (Vitamin B-1) 300 mg DAILY IM 12/04/24 09:00 12/06/24 09:01 12/04/24 09:57 300 MG DIAGNOSTICS / RADIOLOGY: [ ] ASSESSMENT: Acute respiratory failure with hypoxia POA NSTEMI POA Suspected acute CHF POA Uncontrolled diabetes with hyperglycemia POA Normocytic normochromic anemia POA Acute thrombocytosis POA Pseudohyponatremia secondary to hyperglycemia POA Hyperlipidemia POA Nicotine dependence POA Positive amphetamines POA PLAN: Continue admission to PCU Continue CPAP Continue on consistent carb and heart healthy diet Continue Famotidine 20 mg p.o. bid for GI prophylaxis Continue lasix Increase midodrine to 15 mg t.i.d. Start Eliquis Continue aspirin 81 mg p.o. daily Daily weight and strict I&O Fluid restriction 1.5 L per day Continue to follow cardiology recommendations. Continue to follow Pulmonary input and recommendation Case discussed with attending physician and came up with above treatment and plan of care. Possible CCTA per Cardiology once more stable Total time spent 30 minutes. Disposition: Pending diuresis and Cardiology recommendations RASHEED GARCIA MD Dec 04, 2024 16:03
--- NOTE | 2024-12-04 22:04 | NUR ---
@2144pm choi catheter bag with 300ml of urine. color of urine red tinge. no clots present. @2155pm Placed call to [employer]. @2202pm Received call back. Notified nithya denson mapping technician. stated to stop heparin drip and transition to elequis 5mg bid as planned by cardiology. stated to transition to elequis until in morning. Order to notify cardiology in am about red tinge urine and transition to elequis.
--- NOTE | 2024-12-04 23:01 | NUR ---
@2219pm Received call from sam denson. request to call hospitalist commissioner of officials for recommendations regarding red tinge urine and heparin. @2224pm Paged commissioner of officials hospitalist. @2254pm Received call from janneth gomez np. ordered cbc and ptt now. Order to call him back with results. For now to continue on heparin drip.
[2024-12-04 23:11] LABS: HEMATOCRIT 34.6 % (42-54); MEAN CORPUSCULAR HEMOGLOBIN 28.4 pg (27.0-33.0); MEAN CORPUSCULAR HGB CONC 32.7 g/dL (32.0-36.0); MEAN CORPUSCULAR VOLUME 86.9 fL (79-99); RED BLOOD CELL COUNT(AUTO) 3.98 MIL/uL (4.50-6.20); RED CELL DISTRIBUTION WIDTH 12.6 % (11.0-15.5); WHITE BLOOD COUNT (AUTO) 20.1 K/uL (4.8-10.8)
[2024-12-05] VITALS (17 sets, daily range): BP systolic 102–142; BP diastolic 68–95; PULSE 76–112; RESP 16–20; TEMP 97.3–98.4; O2SAT 91–95
--- NOTE | 2024-12-05 00:02 | NUR ---
Reported hemoglobin of 11.3, ptt of 82.6. supra therapeutic level. Reported to Wai gomez np. Stated to adjust heparin rate based on ptt level at this time. Will decrease rate by 2 units/kg/hr. New rate of heparin at 15 units/kg/hr iv ( 11.21 ml/hr). next ptt at 0500am.
[2024-12-05 03:57] LABS: BASOPHILS # (AUTO) 0.02 K/uL (0.00-0.20); BASOPHILS % (AUTO) 0.1 % (0.0-5.0); HEMATOCRIT 36.2 % (42-54); IMMATURE GRANULOCYTE ABSOLUTE 0.14 K/uL (0-1); LYMPHOCYTES % (AUTO) 5.4 % (21.0-51.0); MEAN CORPUSCULAR HEMOGLOBIN 28.3 pg (27.0-33.0); MEAN CORPUSCULAR HGB CONC 32.3 g/dL (32.0-36.0); MEAN CORPUSCULAR VOLUME 87.7 fL (79-99); MONOCYTES # (AUTO) 0.9 K/uL (0.1-1.0); MONOCYTES % (AUTO) 4.6 % (3.0-13.0); NEUTROPHILS # (AUTO) 16.5 K/uL (1.8-7.7); NEUTROPHILS % (AUTO) 89.1 % (40.0-77.0); PLATELET COUNT (AUTO) 549 K/uL (130-400); RED BLOOD CELL COUNT(AUTO) 4.13 MIL/uL (4.50-6.20); RED CELL DISTRIBUTION WIDTH 12.6 % (11.0-15.5); WHITE BLOOD COUNT (AUTO) 18.5 K/uL (4.8-10.8)
[2024-12-05 04:07] LABS: CREATININE 0.9 mg/dL (0.5-1.3); POTASSIUM 3.6 mmol/L (3.5-5.1)
--- NOTE | 2024-12-05 04:15 | NUR ---
@[id number] SPOKE TO Phil GARLAND STUD SHEEP FARMER. REPORTED THAT PATIENT URINE STILL CONTINUES WITH RED TINGE AND NOTICED NEW FINDING OF SMALL THIN STRANDS OF BLOOD CLOTS IN CATHETER TUBING. PER STUD SHEEP FARMER, HOLD HEPARIN DRIP X 2HOURS AND FOLLOW UP WITH CARDIOLOGY FOR RECOMMENDATIONS IN AM.
--- NOTE | 2024-12-05 05:30 | NUR ---
SAUCEDO CATHETER 16FR 10ML BALLOON SAUCEDO CATHETER D/C PER MD ORDERS. PATIENT TOLERATED WELL. NO DISCOMFORT. BALLOON INTACT. NO BLEEDING OR CLOTS NOTED ON SAUCEDO REMOVAL. EDUCATED PATIENT THAT HE NEEDS TO URINATE IN NEXT 8 HOURS. PATIENT EDUCATED TO URINATE IN URINAL IN ORDER TO TRACK INTAKE AND OUTPUT.
--- NOTE | 2024-12-05 07:38 | NUR ---
@0637AM THIS AM CALLED [facility]. PER ANSWERING SERVICE, DR LUNA INSIGHT LEADER. @0728AM PAGE MADE TO [facility]. PER ANSWERING SERVICE, DR TAVERAS INSIGHT LEADER. @0740AM ORDERS TO CONTINUE TO HOLD HEPARIN. PER , WILL ORDER PTT LAB FOR THIS AM.
--- NOTE | 2024-12-05 07:45 | NUR ---
BLADDER SCAN SHOWING >775MLS OF URINE. ASSISTED PATIENT TO STAND AND USE URINAL AT BEDSIDE...VOIDED 800 MLS OF CLEAR, PALE URINE.
--- NOTE | 2024-12-05 07:45 | PN ---
[facility] CARDIOLOGY PROGRESS NOTE Date Patient Seen: Dec 05, 2024 Time of Visit: 07:34 Interval History: [ Pulmonary edema on CXR, normal Cr and urine output. Heparin gtt stopped due to hematuria and choi catheter removed. Pending PTT and void and bladder scan. ] Physical Examination: GENERAL: [No acute distress.] HEAD: [Normal with no signs of head trauma.] EYES: [PERRLA, EOMI, conjunctiva and sclera normal.] ENT: [Hearing grossly intact, normal oropharynx.] NECK: [Supple without JVD. There is no tenderness, lymphadenopathy, or masses. No thyromegaly. Normal carotid upstrokes without bruits.] LUNGS: [rales bilaterally] HEART: [Normal rate and rhythm. Normal S1 and S2 without murmurs, gallop or rub.] VASC: [Peripheral pulses +2 bilaterally.] ABD: [Bowel sounds normal, soft, nontender, no masses, no organomegaly. No audible bruits.] : [Not examined] LYMPH: [No lymphadenopathy noted.] EXT: [1+ edema.] SKIN: [No rashes or lesions noted.] NEURO: [Awake, alert, and oriented x3. No focal sensory or strength deficits noted.] Laboratory: [ ] Hematology Labs: Test 12/05/24 03:39 12/03/24 11:15 Range/Units White Blood Count 18.5 H 4.8-10.8 K/uL Red Blood Count 4.13 L 4.50-6.20 MIL/uL Hemoglobin 11.7 L 14.0-18.0 g/dL Hematocrit 36.2 L 42-54 % Mean Corpuscular Volume 87.7 79-99 fL Mean Corpuscular Hemoglobin 28.3 27.0-33.0 pg Mean Corpuscular Hemoglobin Concent 32.3 32.0-36.0 g/dL Red Cell Distribution Width 12.6 11.0-15.5 % Platelet Count 549 H 130-400 K/uL Mean Platelet Volume 9.2 7.5-10.5 fL Immature Granulocyte % (Auto) 0.8 0-1 % Neutrophils (%) (Auto) 89.1 H 40.0-77.0 % Lymphocytes (%) (Auto) 5.4 L 21.0-51.0 % Monocytes (%) (Auto) 4.6 3.0-13.0 % Eosinophils (%) (Auto) 0.0 0.0-8.0 % Basophils (%) (Auto) 0.1 0.0-5.0 % Neutrophils # (Auto) 16.5 H 1.8-7.7 K/uL Lymphocytes # (Auto) 1.0 1.0-4.8 K/uL Monocytes # (Auto) 0.9 0.1-1.0 K/uL Eosinophils # (Auto) 0.00 0.00-0.70 K/uL Basophils # (Auto) 0.02 0.00-0.20 K/uL Absolute Immature Granulocyte (auto 0.14 0-1 K/uL Nucleated Red Blood Cells 0.0 0.0-0.19 % White Cell Morphology Comment See comments Chemistry Labs: Test 12/05/24 05:13 12/05/24 03:39 12/04/24 16:04 12/04/24 03:48 Range/Units Whole Blood Glucose 177 H 70-110 MG/DL Sodium Level 135 L 136-145 mmol/L Potassium Level 3.6 3.5-5.1 mmol/L Chloride Level 100 L 101-111 mmol/L Carbon Dioxide Level 29 21-32 mmol/L Blood Urea Nitrogen 28 H 7-18 mg/dL Creatinine 0.9 0.5-1.3 mg/dL Glomerular Filtration Rate Calc 105 >90 mL/min Random Glucose 211 H 70-105 mg/dL Total Calcium 8.9 8.5-10.1 mg/dL Bedside Glucose Comment Notified Nurse Phosphorus Level 3.7 2.5-4.9 mg/dL Magnesium Level 2.00 1.80-2.40 mg/dL Test 12/03/24 11:15 Range/Units Total Bilirubin 0.4 0.2-1.0 mg/dL Aspartate Amino Transf (AST/SGOT) 22 10-37 U/L Alanine Aminotransferase (ALT/SGPT) 23 12-78 U/L Alkaline Phosphatase 135 50-136 U/L B-Type Natriuretic Peptide 1560 H 0-100 pg/mL Total Protein 7.0 6.0-8.3 g/dL Albumin 1.9 L 3.5-5.0 g/dL Coagulation Labs: Test 12/05/24 05:18 Range/Units Activated Partial Thromboplast Time 57.6 #H 26.3-35.5 SEC Diagnostics / Radiology: [Copy/Paste Echos/Imaging Report here] Impression and Plan: [Elevated Trop 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 No need to trend enzymes. - amphetamine use - lasix 40 mg IV q12h, Cr stable at 0.9, Urine output 24 hrs : 3400 ml , recommend to continue IV diuresis one more day due to pulmonary edema on CXR monitor daily CXR -Continue asa 325 mg x1, asa 81 mg qd and plavix 300 mg x1 - Lipitor 40 mg QHS. #HFrEF LVEF 25-30% -likely driven by amphetamine -GDMT optimization: Stop pindolol and Toprol XL, now on midodrine (h/o orthostatic hypotension) -BP wont tolerate Entresto or other GDMT meds - Strict I-Os / daily weights -unknown etiology, will plan outpatient CCTA once hemodynamically stable and euvolemic and heart rate is improved #DVT L popliteal -Stopped heparin gtt to eliquis 5 mg bid to start this evening once PTT normal and urine is clear of hematuria Thank you for this consult. We will continue to follow along. Vivian Gandhi MD ] VIVIAN GANDHI MD Dec 05, 2024 07:45
--- NOTE | 2024-12-05 08:10 | NUR ---
DR. Sandra TAVERAS AT BEDSIDE, UPDATE GIVEN. ORDERS: DC HEPARIN DRIP, START ELIQUIS 5MG PO TONIGHT, INCREASE ACTIVITY WITH PHYSICAL THERAPY AND ATTEMPT TO WEAN OFF O2. DISCHARGE PLANNING FOR TUESDAY.
[2024-12-05] MEDS: ZOSYN 3.375GM +NS 50ML IV SCH (08:34)
[2024-12-05] MEDS: BENZONATATE 100 MG CAPSULE PO SCH (08:35)
[2024-12-05 08:39] LABS: INR 1.13 (0.85-1.15); PROTHROMBIN TIME 11.8 SEC (9.6-11.6)
[2024-12-05 08:40] LABS: PARTIAL THROMBOPLASTIN TIME 32.2 SEC (26.3-35.5)
[2024-12-05] MEDS: INSULIN GLARgine 100 UNITS/ML 10 ML VIAL SQ SCH (08:55)
--- NOTE | 2024-12-05 09:41 | PN ---
[facility] PROGRESS NOTE Date of Service: Dec 05, 2024 Time of Service: 09:30 SUBJECTIVE: This is a 49-year-old male with past medical history of diabetes, hyperlipidemia and hypertension who presented to the ED for complaints of left-sided chest pain. Labs in the ER WBC 11.7 with negative left shift of neutrophils 77.6, hemoglobin 13.1, hematocrit 39.4 platelet count 462. Sodium 131, potassium 4.5, chloride 95, carbon dioxide 34 glucose 488, ketones 0.2, troponin 1732 to 1661 BNP 1180. EKG result revealed sinus tachycardia heart rate 118 with probable anterior infarct age indeterminate. Toxicology screen positive for amphetamines. Patient seen and examined, still mildy tachycardic. During my visit patient on CPAP, alert oriented x3, following commands, admits to feeling less shortness a breath compared to time of admission. He has been started on Lasix drip. Also on heparin drip. Echocardiogram showed LVEF 25- Cardiology input noted and appreciated. Plan for inpatient vs outpatient CCTA. 3/ patient seen at bedside, no acute events overnight. He is diuresing well with a proximally five point L urine output, Lasix drip has been deescalated to oral Lasix 40 mg 3 times daily. He has been afebrile, hemodynamically stable continues on BiPAP. Blood pressure has been on the low side of normal, was started on midodrine, we will discuss the use of midodrine in the setting of severe CHF as it can be contraindicated. Remainder of his labs are relatively unremarkable. Venous Doppler showing DVT with noncompressible thrombus in the left popliteal vein, heparin drip discontinued today we will follow up with Cardiology regarding anticoagulation. 3 patient seen at bedside, no acute events overnight. He continues to diurese, cardiology recommending one more day of diuresis and transition to Eliquis from heparin. He has been afebrile, hemodynamically stable, his blood pressure is on the low side of normal, we will hold Entresto as he does not have the reserve to tolerate the medication, midodrine has been increased to 15 mg t.i.d., WBC increased from 12.1 up to 20.5, hemoglobin decreased from 11.8 down to 11.1, platelets 499, similar to yesterday, creatinine increased from 1.0 up to 1.2, remainder of his labs are relatively unremarkable. 3/5 Pt seen at bedside, nursing reporting some hematuria and clots in choi bag. Heparin will be held until PTT is back to normal. Choi catheter will be removed. Cardiology recommending starting eliquis this evening. Will order bladder scan to ensure no bladder output obstruction from retained clots. Pt continues diuresing well. He is saturating well on 2L nasal cannula, nursing to wean O2 with a goal of SaO2 88-92%. Will discontinue solumedrol and start PO prednisone 40mg q24h for 7 days. REVIEW OF SYSTEMS CONSTITUTIONAL: Denies fevers, chills, or night sweats. No unintentional weight loss reported. NEUROLOGICAL: Denies headache, amaurosis fugax, motor weakness, sensory deficit, vertigo/spinning sensation, gait abnormalities, or tremors. ENT: No hearing loss, otalgia, otorrhea, rhinitis, rhinorrhea, hoarseness, or sore throat. CARDIOVASCULAR: Complaints of chest pain dyspnea on exertion orthopnea Denies paroxysmal nocturnal dyspnea, palpitations, life-threatening arrhythmias, claudi cation. PULMONARY: Complaints of shortness of breaths and dry cough Denies phlegm/sputum, hemoptysis, pleuritic chest pain. SLEEP: Denies morning headaches, daytime somnolence or napping. Denies diffic ulty falling asleep, staying asleep, waking from sleep. Denies knowledge of snoring. GASTROINTESTINAL: Denies any type of dysphagia to either liquids or solids. Denies nausea, vomiting, pyrosis, early satiety, abdominal pain, diarrhea, constipation, or changes in stool consistency or caliber. Denies coffee-ground emesis, hematemesis, hematochezia, or melanotic stools. GENITOURINARY: Denies frequency, urgency, nocturia, hematuria or incontinence (Storage/Irritative symptoms.) Low urinary stream, straining to void, urinary intermittency or hesitancy, splitting of the voiding stream, terminal dribbling. ENDOCRINOLOGIC: Denies polyuria, polydipsia, polyphagia or heat/cold into lerances. HEMATOLOGIC: Denies thrombophilia/previous clots, or coagulopathy/bleeding disorders. ONCOLOGIC: Denies personal history of malignancy. DERMATOLOGIC: Denies rashes or pruritus. PSYCHIATRIC: Denies any suicidal or homicidal ideation. Denies hallucinations. PHYSICAL EXAM GENERAL APPEARANCE: The patient is awake, alert, and oriented, in no acute cardiopulmonary distress. NEUROLOGICAL: Cranial nerves II-XII grossly intact. Motor is 5/5 in bilateral upper and lower extremities proximal to distal. No sensory deficits. HEENT: Face is symmetric. Pupils are equal and reactive. Extraocular movements are intact. NECK: Supple. No JVD. No thyromegaly. No submental, submandibular, pre- /postauricular, occipital or supraclavicular lymphadenopathy. CHEST: Normal chest expansion. Telemetry. LUNGS: Crackles to the lower bases on both lung correa per auscultation CARDIOVASCULAR: Tachycardic and Regular. S1 and S2 normal. No appreciable rubs, murmurs or gallops. ABDOMEN: Soft, nontender, and nondistended. There is no rebound, voluntary guarding, or rigidity. : Deferred. No Choi. EXTREMITIES: 2+ edema to bilateral lower extremities Good capillary refill. SKIN: No skin breakdown. Vital Signs (last 8hr) Date Time Temp Pulse Resp B/P (MAP) Pulse Ox O2 Delivery O2 Flow Rate FiO2 12/05/24 07:47 81 16 115/74 94 Nasal Cannula 2.0 12/05/24 07:46 76 16 108/73 95 Nasal Cannula 2.0 12/05/24 07:44 97.3 76 16 108/74 96 Nasal Cannula 2.0 12/05/24 06:47 88 20 N/Cannula Low lpm 2.0 28 12/05/24 06:45 88 18 12/05/24 04:09 98.4 83 18 115/76 97 Nasal Cannula LABS: Laboratory: Test 12/05/24 08:04 12/05/24 05:13 12/05/24 03:39 12/04/24 16:04 Range/Units Prothrombin Time 11.8 H 9.6-11.6 SEC Prothromb Time International Ratio 1.13 0.85-1.15 Activated Partial Thromboplast Time 32.2 # 26.3-35.5 SEC Whole Blood Glucose 177 H 70-110 MG/DL White Blood Count 18.5 H 4.8-10.8 K/uL Red Blood Count 4.13 L 4.50-6.20 MIL/uL Hemoglobin 11.7 L 14.0-18.0 g/dL Hematocrit 36.2 L 42-54 % Mean Corpuscular Volume 87.7 79-99 fL Mean Corpuscular Hemoglobin 28.3 27.0-33.0 pg Mean Corpuscular Hemoglobin Concent 32.3 32.0-36.0 g/dL Red Cell Distribution Width 12.6 11.0-15.5 % Platelet Count 549 H 130-400 K/uL Mean Platelet Volume 9.2 7.5-10.5 fL Immature Granulocyte % (Auto) 0.8 0-1 % Neutrophils (%) (Auto) 89.1 H 40.0-77.0 % Lymphocytes (%) (Auto) 5.4 L 21.0-51.0 % Monocytes (%) (Auto) 4.6 3.0-13.0 % Eosinophils (%) (Auto) 0.0 0.0-8.0 % Basophils (%) (Auto) 0.1 0.0-5.0 % Neutrophils # (Auto) 16.5 H 1.8-7.7 K/uL Lymphocytes # (Auto) 1.0 1.0-4.8 K/uL Monocytes # (Auto) 0.9 0.1-1.0 K/uL Eosinophils # (Auto) 0.00 0.00-0.70 K/uL Basophils # (Auto) 0.02 0.00-0.20 K/uL Absolute Immature Granulocyte (auto 0.14 0-1 K/uL Nucleated Red Blood Cells 0.0 0.0-0.19 % Sodium Level 135 L 136-145 mmol/L Potassium Level 3.6 3.5-5.1 mmol/L Chloride Level 100 L 101-111 mmol/L Carbon Dioxide Level 29 21-32 mmol/L Blood Urea Nitrogen 28 H 7-18 mg/dL Creatinine 0.9 0.5-1.3 mg/dL Glomerular Filtration Rate Calc 105 >90 mL/min Random Glucose 211 H 70-105 mg/dL Total Calcium 8.9 8.5-10.1 mg/dL Bedside Glucose Comment Notified Nurse Test 12/04/24 03:48 12/03/24 11:15 Range/Units Phosphorus Level 3.7 2.5-4.9 mg/dL Magnesium Level 2.00 1.80-2.40 mg/dL White Cell Morphology Comment See comments Total Bilirubin 0.4 0.2-1.0 mg/dL Aspartate Amino Transf (AST/SGOT) 22 10-37 U/L Alanine Aminotransferase (ALT/SGPT) 23 12-78 U/L Alkaline Phosphatase 135 50-136 U/L B-Type Natriuretic Peptide 1560 H 0-100 pg/mL Total Protein 7.0 6.0-8.3 g/dL Albumin 1.9 L 3.5-5.0 g/dL Serum Alcohol < 3 0-10 mg/dL Current Medications Medications (Trade) Dose Ordered Sig/Nasim Route PRN Reason Start Time Stop Time Status Last Admin Dose Admin Acetaminophen (TYLenol 325MG TAB) 650 mg Q4H PRN PO MILD PAIN (1-3) 12/01/24 01:30 12/31/24 01:29 12/01/24 20:18 650 MG Acetaminophen (TYLenol 325MG TAB) 650 mg Q6H PRN PO TEMPERATURE GREATER THAN 101.5 12/01/24 01:30 12/31/24 01:29 Albuterol (DUOneb) 1 udvial [id number] PRN IH COUGH 12/01/24 01:30 12/02/24 19:26 DC 12/02/24 18:55 1 UDVIAL Apixaban (EliquIS) 5 mg BID PO 12/05/24 21:00 01/04/25 20:59 Aspirin (Aspirin 81mg Ec Tab) 81 mg DAILY PO 12/01/24 09:00 12/31/24 08:59 12/05/24 08:36 81 MG Atenolol (Atenolol) 50 mg DAILY PO 12/01/24 09:00 12/03/24 11:18 DC 12/03/24 09:57 50 MG Atorvastatin Calcium (LIPItor 10MG) 5 mg DAILY PO 12/01/24 09:00 12/03/24 07:13 DC 12/02/24 08:07 5 MG Atorvastatin Calcium (LIPItor 10MG) 5 mg HS PO 12/03/24 21:00 12/03/24 11:22 DC Atorvastatin Calcium (LIPItor 40MG) 40 mg HS PO 12/03/24 21:00 01/02/25 20:59 12/04/24 20:27 40 MG Benzonatate (Tessalon 100mg Caps) 200 mg Q8H PO 12/05/24 09:00 01/04/25 08:59 3/5/25 08:35 200 MG Ceftriaxone Sodium (ROCEphine 1G INJ) 1 gm Q24H IVPB 12/01/24 09:30 12/02/24 08:16 DC 12/01/24 09:48 1 GM Ceftriaxone Sodium (Rocephin 2gm Inj) 2 gm Q24H IVPB 12/02/24 09:30 12/02/24 14:39 DC 12/02/24 09:59 2 GM Dextrose (D50w) 50 ml AD PRN IV HYPOGLYCEMIA PROTOCOL 12/01/24 01:30 12/31/24 01:29 Doxycycline Hyclate 250 ml @ 125 mls/hr Q12H IV 12/01/24 11:00 12/11/24 10:59 12/04/24 23:22 125 MLS/HR Enoxaparin Sodium (Lovenox) 30 mg DAILY SQ 12/01/24 09:00 12/01/24 09:32 DC 12/01/24 08:49 30 MG Famotidine (Pepcid 20mg Tab) 20 mg BID PO 12/01/24 09:00 12/02/24 14:42 DC 12/02/24 08:07 20 MG Folic Acid (FOLic ACID 1 MG TABLET) 1 mg DAILY PO 12/04/24 09:00 12/06/24 09:01 12/05/24 08:34 1 MG Furosemide (LASix 20MG VIAL) 20 mg Q12H IV 12/01/24 09:00 12/01/24 11:13 DC 12/01/24 08:48 20 MG Furosemide (LASix 20MG VIAL) 20 mg Q12H IV 12/01/24 11:30 12/01/24 16:26 DC 12/01/24 11:35 20 MG Furosemide (LASix 40MG VIAL) 40 mg Q12H IV 12/02/24 20:30 12/02/24 14:11 DC Furosemide (LASix 40MG VIAL) 40 mg Q12H IV 12/03/24 11:00 12/03/24 22:10 DC 12/03/24 13:46 40 MG Furosemide (LASix 40MG VIAL) 40 mg Q12H IV 12/04/24 02:30 01/03/25 02:29 12/05/24 03:41 40 MG Furosemide (LASix 40MG VIAL) 40 mg Q8H IV 12/01/24 16:30 12/02/24 12:58 DC 12/02/24 08:07 40 MG Furosemide (LASix 40MG VIAL) 40 mg Q8H IV 12/02/24 14:00 12/02/24 14:13 DC Furosemide (LASix 40MG VIAL) 40 mg Q8H IV 12/02/24 14:30 12/02/24 14:39 DC 12/02/24 14:25 40 MG Furosemide 100 mg/ Sodium Chloride 100 ml @ 0 mls/hr PROTOCOL IV 12/02/24 15:00 12/03/24 10:59 DC 12/02/24 15:23 5 MLS/HR Glucagon (Glucagon 1mg Kit) 1 mg AD PRN IM HYPOGLYCEMIA PROTOCOL 12/01/24 01:30 12/31/24 01:29 Guaifenesin/ Dextromethorphan (RobiTUSSin DM 200/20MG 10ML) 10 ml Q4H PRN PO COUGH 12/01/24 01:30 12/31/24 01:29 12/04/24 10:00 10 ML Heparin Sodium/ Dextrose 250 ml @ 0 mls/hr PROTOCOL IV 12/01/24 10:00 12/03/24 11:18 DC 12/03/24 01:19 13.26 MLS/HR Heparin Sodium/ Dextrose 250 ml @ 0 mls/hr PROTOCOL IV 12/03/24 17:30 12/05/24 08:20 DC 12/04/24 01:52 12.71 MLS/HR Insulin Glargine (LANtus 100 UNITS/ML 10 ML VIAL) 10 units HS SQ 12/01/24 21:00 12/02/24 08:18 DC 12/01/24 20:18 10 UNITS Insulin Glargine (LANtus 100 UNITS/ML 10 ML VIAL) 20 units BID SQ 12/02/24 09:00 12/04/24 00:00 DC 12/03/24 21:44 20 UNITS Insulin Glargine (LANtus 100 UNITS/ML 10 ML VIAL) 30 units BID SQ 12/04/24 09:00 12/05/24 04:25 DC 12/04/24 20:32 30 UNITS Insulin Glargine (LANtus 100 UNITS/ML 10 ML VIAL) 35 units BID SQ 12/05/24 09:00 01/04/25 08:59 12/05/24 08:55 35 UNITS Insulin Human Regular (humuLIN R 100 UNIT/ML 3ML) INSULIN SLIDING SCAL... ACHS SQ 12/01/24 07:30 12/31/24 07:29 12/05/24 06:53 2 UNIT Ipratropium [place] (AtrovENT UD) 0.5 MG [id number] IH 12/02/24 18:00 12/02/24 14:13 DC Ipratropium [place] (AtrovENT UD) 0.5 mg [id number] IH 12/03/24 00:00 01/02/25 00:00 12/05/24 06:44 0.5 MG Lorazepam (AtiVAN) 2 mg Q4H PRN IVP ALCOHOL WITHDRAWAL PROTOCOL 12/03/24 11:00 12/10/24 10:59 Lorazepam (AtiVAN) 4 mg Q2H PRN IVP ALCOHOL WITHDRAWAL PROTOCOL 12/03/24 11:00 12/10/24 10:59 Magnesium Sulfate 50 ml @ 0 mls/hr PROTOCOL PRN IV OTHER [SEE ORDER COMMENTS] 12/01/24 01:30 12/31/24 01:29 12/02/24 05:57 25 MLS/HR Methylprednisolone Sodium Succinate (Solu-medROL 40MG) 20 mg Q8H IVP 12/04/24 05:00 01/01/25 20:59 12/05/24 03:41 20 MG Methylprednisolone Sodium Succinate (Solu-medROL 40MG) 40 mg BID IVP 12/02/24 21:00 12/04/24 00:06 DC 12/03/24 21:13 40 MG Metoprolol Succinate (TopROL XL) 25 mg DAILY PO 12/04/24 09:00 12/05/24 07:38 DC 12/04/24 09:57 25 MG Midodrine (PROAMatine 5 MG TABLET) 10 mg TID PO 12/03/24 14:00 12/04/24 13:08 DC 12/04/24 09:56 10 MG Midodrine (PROAMatine 5 MG TABLET) 15 mg TID PO 12/04/24 14:00 01/03/25 13:59 12/05/24 08:35 15 MG Montelukast Sodium (SinguLAIR) 10 mg DAILY PO 12/03/24 09:00 01/02/25 08:59 12/05/24 08:35 10 MG Multivitamins Therapeutic (Multivitamin Tablet) 1 tab DAILY PO 12/04/24 09:00 01/03/25 08:59 12/05/24 08:34 1 TAB Nitroglycerin (Nitroglycerin 1gm Oint) 0.5 inch Q8H TD 12/01/24 01:30 12/31/24 01:29 12/05/24 08:42 0.5 INCH Nitroglycerin (Nitrostat) 0.4 mg PROTOCOL PRN SL CHEST PAIN 12/01/24 01:30 12/31/24 01:29 Ondansetron HCl (zoFRAN 4MG INJ) 4 mg Q4H PRN IV NAUSEA 12/03/24 11:00 01/02/25 10:59 Ondansetron HCl (zoFRAN 4MG INJ) 4 mg Q6H PRN IV NAUSEA/VOMITING 12/01/24 01:30 12/03/24 10:51 DC Pantoprazole Sodium (PROTonix 40MG INJ) 40 mg DAILY IVP 12/03/24 09:00 01/02/25 08:59 12/05/24 08:37 40 MG Pharmacy Profile Note (Pharmacy Communication) 1 each ONCE MISC 12/02/24 15:00 12/03/24 07:13 DC Pharmacy Profile Note (Pharmacy Communication) 1 each PROTOCOL PRN MISC ETOH Withdrawal Score changes 12/03/24 11:00 12/10/24 10:59 Piperacillin Sod/ Tazobactam Sod (Zosyn 3.375gm+NS 50ml) 3.375 gm Q8H IV 12/02/24 15:00 12/05/24 07:38 DC 12/05/24 01:16 3.375 GM Piperacillin Sod/ Tazobactam Sod (Zosyn 3.375gm+NS 50ml) 3.375 gm Q8H IV 12/05/24 09:00 12/12/24 22:00 12/05/24 08:34 3.375 GM Potassium Chloride 100 ml @ 100 mls/hr AD PRN IV POTASSIUM PROTOCOL 12/01/24 01:30 12/31/24 01:29 Potassium Chloride (K-Dur/Klor-Con 20meq) 20 meq AD PRN PO POTASSIUM PROTOCOL 12/01/24 01:30 12/31/24 01:29 12/05/24 08:52 20 MEQ Potassium Chloride (KCl 10% Elixir 20meq/15ml) 20 meq AD PRN PO POTASSIUM PROTOCOL 12/01/24 01:30 12/31/24 01:29 Promethazine HCl (Phenergan) 25 mg Q6H PRN PO NAUSEA 12/03/24 11:00 01/02/25 10:59 Thiamine HCl (Vitamin B-1) 300 mg DAILY IM 12/04/24 09:00 12/06/24 09:01 12/05/24 08:37 300 MG DIAGNOSTICS / RADIOLOGY: [ ] ASSESSMENT: Acute respiratory failure with hypoxia, improving POA NSTEMI POA Acute combined CHF exacerbation, Systolic EF 25-30%, stage III diastolic dysfunction, POA Bilateral pleural effusion, POA Bilateral multifocal pneumonia vs volume overload Uncontrolled diabetes with hyperglycemia last A1C 12.5, POA Hematuria, s/p Choi, removed (12/05/24) Normocytic normochromic anemia POA Acute thrombocytosis POA Pseudohyponatremia secondary to hyperglycemia, improving, POA Hyperlipidemia POA Nicotine dependence POA 76 pack-year smoker, POA Positive amphetamines POA PLAN: Continue admission to PCU Continue CPAP Continue on consistent carb and heart healthy diet Continue Famotidine 20 mg p.o. bid for GI prophylaxis Continue lasix Continue midodrine to 15 mg t.i.d. Hold heparin, Start Eliquis tonight Remove choi catheter Bladder scan tonight before resuming eliquis Monitor urine output Continue aspirin 81 mg p.o. daily Daily weight and strict I&O Fluid restriction 1.5 L per day Continue to follow cardiology recommendations. Continue to follow Pulmonary input and recommendation Case discussed with attending physician and came up with above treatment and plan of care. Possible CCTA per Cardiology once more stable Total time spent 30 minutes. Disposition: Pending diuresis, resolution of hematuria, improvement in respiratory status and Cardiology recommendations RASHEED GARCIA MD Dec 05, 2024 09:41
--- NOTE | 2024-12-05 11:42 | HMCIMG ---
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 Stable heart size without pulmonary vascular congestion. Unchanged bilateral lung airspace disease, without pneumothorax.
--- NOTE | 2024-12-05 17:50 | PN ---
[facility] PROGRESS NOTE Date Patient Seen: Dec 05, 2024 Time of Visit: 17:48 Supervising Physician: Dr. 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 He appeared moderate distress. Sinus tachycardic 114 beats per minute respiratory rate of 24 saturating 94% with 3 L via nasal cannula and afebrile. Patient had urine output of 1.9 L in the last 24 hours with a balance of-1.5 L. he is currently on Lasix 40 mg q.8 hours IV. Chest x-ray shows [place] pulmonary edema with multifocal bilateral infiltrates. ABG was done with results of pH of 7.45 pCO2 of 32 PO2 of 63 and bicarb 21.8 consistent with respiratory alkalosis from over breathing due to hypoxemia. Place patient on Lasix drip 5 milligrams/hour and CPAP machine with pressure support of 10 FiO2 of 50%. Patient tolerating it well. WBCs of 14.6 H&H of 12.1/36.4. On chemistries sodium 131 chloride 95 kidneys are doing well creatinine 1.0 GFR of 93 glucose has been elevated 272 mg/dL this morning added Lantus. Due to severe pneumoniae in the history of smoking change Rocephin to Zosyn to cover for Pseudomonas. Added Solu-Medrol 40 mg b.i.d. for severe pneumonia. 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 Patient to continue with aspirin, beta simón, statin therapy per ACS guidelines and he continues currently on a heparin drip For NSTEMI. I have updated patient and who was at the bedside with current clinical findings and plan of care. Both verbalized understanding and answered all their questions. They are both in agreement with plan of care. 12/04/2024: At the time of my evaluation, the patient was sitting up in bed. He reports feeling much better today. The patient is awake alert and oriented x4, he is verbally interactive with appropriate responses. Currently, the patient is requiring oxygen supplementation with nasal cannula 2 liters/minute and denies any shortness of breath. He remains on Solu-Medrol 20 mg q.8 hours. Ca rdiac-mercado, the patient is hemodynamically stable, with blood pressure trends marginally low. He remains on a heparin drip. Chemistry panel obtained today shows a sodium of 134, potassium of 3.7, chloride 100, CO2 of 28, BUN 31 creatinine of 1.2 and blood glucose of 290. Patient had a cumulative balance of positive 212.0. On CBC, the patient had a WBC of 20.5, H&H 11.1/33.6 and a platelet count of 499. The patient remains on antibiotic coverage with Zosyn and doxy. Respiratory cultures showing Yesica albicans. Blood cultures x2 were negative. Staff nurse reports no acute events overnight. No other complaint. 12/05/2024: At the time of my evaluation, the patient is lying in bed. He remains on a nasal cannula 2 L. on the monitor, the patient is hemodynamically stable. Laboratory data showed a slight improvement of WBC to 18.5. Chemistry panel was remarkable for elevated blood glucose in the 200s. Microbiology data showing blood cultures x2 negative and Yesica albicans in respiratory culture. Chest x-ray today showed no acute airspace disease. No other complaint. REVIEW OF SYSTEMS: 12 point ROS reviewed with patient. Pertinent positives mentioned above. Otherwise negative. PHYSICAL EXAM: GENERAL: alert, weak, awake oriented x 3 HEENT: EOMI, Sclera non icteric, moist mucosa NECK: Supple, no JVD, trachea midline LUNGS: Diminished breath sounds bilaterally. No wheezes HEART: Regular rate and rhythm. Normal S1 and S2, without murmurs ABD: Abdomen soft, nontender. Bowel sounds present EXT: No clubbing cyanosis or edema, + 1 pitting edema to LLE, NEURO: Alert and oriented to person, follows commands Vital Signs (last 8hr) Date Time Temp Pulse Resp B/P (MAP) Pulse Ox O2 Delivery O2 Flow Rate FiO2 12/05/24 16:00 97.3 79 20 113/68 95 Nasal Cannula 2.0 12/05/24 11:40 79 18 12/05/24 11:00 97.5 87 20 102/72 93 Nasal Cannula 2.0 LABS: Hematology Labs: Test 12/05/24 03:39 Range/Units White Blood Count 18.5 H 4.8-10.8 K/uL Red Blood Count 4.13 L 4.50-6.20 MIL/uL Hemoglobin 11.7 L 14.0-18.0 g/dL Hematocrit 36.2 L 42-54 % Mean Corpuscular Volume 87.7 79-99 fL Mean Corpuscular Hemoglobin 28.3 27.0-33.0 pg Mean Corpuscular Hemoglobin Concent 32.3 32.0-36.0 g/dL Red Cell Distribution Width 12.6 11.0-15.5 % Platelet Count 549 H 130-400 K/uL Mean Platelet Volume 9.2 7.5-10.5 fL Immature Granulocyte % (Auto) 0.8 0-1 % Neutrophils (%) (Auto) 89.1 H 40.0-77.0 % Lymphocytes (%) (Auto) 5.4 L 21.0-51.0 % Monocytes (%) (Auto) 4.6 3.0-13.0 % Eosinophils (%) (Auto) 0.0 0.0-8.0 % Basophils (%) (Auto) 0.1 0.0-5.0 % Neutrophils # (Auto) 16.5 H 1.8-7.7 K/uL Lymphocytes # (Auto) 1.0 1.0-4.8 K/uL Monocytes # (Auto) 0.9 0.1-1.0 K/uL Eosinophils # (Auto) 0.00 0.00-0.70 K/uL Basophils # (Auto) 0.02 0.00-0.20 K/uL Absolute Immature Granulocyte (auto 0.14 0-1 K/uL Nucleated Red Blood Cells 0.0 0.0-0.19 % Chemistry Labs: Test 12/05/24 16:00 12/05/24 03:39 12/04/24 03:48 Range/Units Whole Blood Glucose 292 H 70-110 MG/DL Bedside Glucose Comment Notified Nurse Sodium Level 135 L 136-145 mmol/L Potassium Level 3.6 3.5-5.1 mmol/L Chloride Level 100 L 101-111 mmol/L Carbon Dioxide Level 29 21-32 mmol/L Blood Urea Nitrogen 28 H 7-18 mg/dL Creatinine 0.9 0.5-1.3 mg/dL Glomerular Filtration Rate Calc 105 >90 mL/min Random Glucose 211 H 70-105 mg/dL Total Calcium 8.9 8.5-10.1 mg/dL Phosphorus Level 3.7 2.5-4.9 mg/dL Magnesium Level 2.00 1.80-2.40 mg/dL Coagulation Labs: Test 12/05/24 08:04 Range/Units Prothrombin Time 11.8 H 9.6-11.6 SEC Prothromb Time International Ratio 1.13 0.85-1.15 Activated Partial Thromboplast Time 32.2 # 26.3-35.5 SEC DIAGNOSTICS / RADIOLOGY RESULTS: [ ] PLAN IV ABX with zosyn and doxy stop lasix drip continue with lasix IVP Continue heparin for now for DVT until PO AC has been started cpap cardiac monitoring dc duoneb start atrovent nebs prn Solu-Medrol 40mg ivp bid for severe pneumonia, wean as possible now 20mg IVP q8hrs hepatitis panel follow cardiology recommendations currently on heparin gtt -Arrange outpatient pulmonology referral for sleep study, PFT and follow-up management upon discharge singulair protonix for GI PPX fc placement HIV ltest with reflex negative monito resp status closely, repeat abg if decline in resp status he is high risk for decompensations. 12/04/2024: For now, going to continue current management for the patient. We will continue oxygen supplementation via the nasal cannula. Also, the patient is going to remain on steroid therapy. We will order chest x-ray for tomorrow. The patient will remain on a heparin drip and we will follow the Cardiology input on management. We are going to monitor the WBC trend and treat accordingly. We will continue antibiotic course with Zosyn and doxy as ordered. We will repeat surveillance labs in the morning. We will monitor the patient's progress and response to management. We will continue to provide general supportive care, GI and DVT prophylaxis. Further orders per attending MD and hospital course. 12/05/2024: For now, going to continue current management for the patient. He will continue on oxygen supplementation via nasal cannula and we will adjust as necessary. The patient was remain on antibiotic therapy due to pneumonia currently covered with Zosyn and doxycycline. We will continue with steroid therapy prednisone 40 daily and we will replace electrolyte deficit. Per the Cardiology team, the patient to continue with IV diuresis x1 more day and advise d that the patient will not tolerate Entresto. Heparin drip was stopped and the patient will transition over to p.o. Eliquis. We will monitor the patient's progress and we will adjust management as necessary. Further orders per attending MD and hospital course.. NEURO: Minimize central acting medications as possible. Maintain fall precautions, adequate lighting during the day PULMONARY: Supplemental 02 as needed. Maintain aspiration precautions at all times CARDIOVASCULAR: Follow hemodynamics. Vital signs per facility protocol GI & NUTRITION: Continue with nutritional support. Continue stool softeners and laxatives as needed. KIDNEYS & ELECTROLYTES: Strict monitoring of intake, output and overall fluid balance. Avoid nephrotoxic medications to the extent possible. Medications to be dosed according to renal function. Monitor electrolytes and replace as needed ENDOCRINE: Maintain blood glucose between 100-180 at all times. Hypoglycemia protocol in place INFECTIOUS DISEASE: Trend temperature, WBC and procalcitonin level Follow cultures, deescalate antibiotics as soon as possible. Panculture if new onset fever ONCOLOGY/HEMATOLOGY/COAGULATION: Monitor for s/s of bleeding Monitor hemoglobin, coagulation studies as needed SKIN: Pressure ulcer prevention per facility protocol Specialty mattress ORTHO/REHAB: Continue PT/OT Prophylaxis: Continue GI and DVT prophylaxis Code Status: Full Resuscitation Disposition: TBD Other: Total patient care time exceeds 35 minutes excluding all procedures. AFSHAN BURGESS NP Dec 05, 2024 17:50
[2024-12-05] MEDS: APIXaban 5 MG TABLET PO SCH (20:55)
[2024-12-05 23:09] LABS: MYCOPLASMA AB IGM <770 U/mL (0-769)
[2024-12-06] VITALS (14 sets, daily range): BP systolic 93–108; BP diastolic 65–78; PULSE 77–104; RESP 18–20; TEMP 97.6–98.6; O2SAT 91–98
[2024-12-06 04:58] LABS: EOSINOPHILS # (AUTO) 0.01 K/uL (0.00-0.70); EOSINOPHILS % (AUTO) 0.1 % (0.0-8.0); HEMATOCRIT 40.3 % (42-54); IMMATURE GRANULOCYTE ABSOLUTE 0.08 K/uL (0-1); LYMPHOCYTES % (AUTO) 22.3 % (21.0-51.0); MEAN CORPUSCULAR HEMOGLOBIN 28.4 pg (27.0-33.0); MEAN CORPUSCULAR HGB CONC 32.5 g/dL (32.0-36.0); MEAN CORPUSCULAR VOLUME 87.4 fL (79-99); MONOCYTES # (AUTO) 1.1 K/uL (0.1-1.0); MONOCYTES % (AUTO) 8.6 % (3.0-13.0); NEUTROPHILS # (AUTO) 9.1 K/uL (1.8-7.7); NEUTROPHILS % (AUTO) 68.4 % (40.0-77.0); PLATELET COUNT (AUTO) 577 K/uL (130-400); RED BLOOD CELL COUNT(AUTO) 4.61 MIL/uL (4.50-6.20); RED CELL DISTRIBUTION WIDTH 12.6 % (11.0-15.5); WHITE BLOOD COUNT (AUTO) 13.2 K/uL (4.8-10.8)
[2024-12-06 05:22] LABS: POTASSIUM 3.3 mmol/L (3.5-5.1)
--- NOTE | 2024-12-06 07:28 | PN ---
[facility] PROGRESS NOTE Date Patient Seen: Dec 06, 2024 Time of Visit: 07:25 Interval History: [ CXR significantly improved. Leukocytosis resolving significantly. Urine output 7.4L/24hrs. Cr stable at 1.0.] Physical Examination: GENERAL: [No acute distress.] HEAD: [Normal with no signs of head trauma.] EYES: [PERRLA, EOMI, conjunctiva and sclera normal.] ENT: [Hearing grossly intact, normal oropharynx.] NECK: [Supple without JVD. There is no tenderness, lymphadenopathy, or masses. No thyromegaly. Normal carotid upstrokes without bruits.] LUNGS: [CTA b/l] HEART: [Normal rate and rhythm. Normal S1 and S2 without murmurs, gallop or rub.] VASC: [Peripheral pulses +2 bilaterally.] ABD: [Bowel sounds normal, soft, nontender, no masses, no organomegaly. No audible bruits.] : [Not examined] LYMPH: [No lymphadenopathy noted.] EXT: [no edema.] SKIN: [No rashes or lesions noted.] NEURO: [Awake, alert, and oriented x3. No focal sensory or strength deficits noted.] Laboratory: [ ] Hematology Labs: Test 12/06/24 04:38 Range/Units White Blood Count 13.2 H 4.8-10.8 K/uL Red Blood Count 4.61 4.50-6.20 MIL/uL Hemoglobin 13.1 L 14.0-18.0 g/dL Hematocrit 40.3 L 42-54 % Mean Corpuscular Volume 87.4 79-99 fL Mean Corpuscular Hemoglobin 28.4 27.0-33.0 pg Mean Corpuscular Hemoglobin Concent 32.5 32.0-36.0 g/dL Red Cell Distribution Width 12.6 11.0-15.5 % Platelet Count 577 H 130-400 K/uL Mean Platelet Volume 9.1 7.5-10.5 fL Immature Granulocyte % (Auto) 0.6 0-1 % Neutrophils (%) (Auto) 68.4 40.0-77.0 % Lymphocytes (%) (Auto) 22.3 21.0-51.0 % Monocytes (%) (Auto) 8.6 3.0-13.0 % Eosinophils (%) (Auto) 0.1 0.0-8.0 % Basophils (%) (Auto) 0.0 0.0-5.0 % Neutrophils # (Auto) 9.1 H 1.8-7.7 K/uL Lymphocytes # (Auto) 3.0 1.0-4.8 K/uL Monocytes # (Auto) 1.1 H 0.1-1.0 K/uL Eosinophils # (Auto) 0.01 0.00-0.70 K/uL Basophils # (Auto) 0.00 0.00-0.20 K/uL Absolute Immature Granulocyte (auto 0.08 0-1 K/uL Nucleated Red Blood Cells 0.0 0.0-0.19 % Chemistry Labs: Test 12/06/24 05:58 12/06/24 04:38 12/05/24 16:00 Range/Units Whole Blood Glucose 138 #H 70-110 MG/DL Sodium Level 140 136-145 mmol/L Potassium Level 3.3 L 3.5-5.1 mmol/L Chloride Level 101 101-111 mmol/L Carbon Dioxide Level 33 H 21-32 mmol/L Blood Urea Nitrogen 16 7-18 mg/dL Creatinine 1.0 0.5-1.3 mg/dL Glomerular Filtration Rate Calc 93 >90 mL/min Random Glucose 160 H 70-105 mg/dL Total Calcium 9.0 8.5-10.1 mg/dL Bedside Glucose Comment Notified Nurse Coagulation Labs: Test 12/05/24 08:04 Range/Units Prothrombin Time 11.8 H 9.6-11.6 SEC Prothromb Time International Ratio 1.13 0.85-1.15 Activated Partial Thromboplast Time 32.2 # 26.3-35.5 SEC Diagnostics / Radiology: [Copy/Paste Echos/Imaging Report here] Impression and Plan: [Elevated Trop, likely type II PR in setting of pneumonia and CHF 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 No need to trend enzymes. - amphetamine use on UDS -12/06 transitioned lasix 40 mg IV q12h to po, added K 20 meq bid. Cr stable at 1.0, Urine output 24 hrs : 7400 ml -monitor daily CXR -Continue asa 325 mg x1, asa 81 mg qd and plavix 300 mg x1 - Lipitor 40 mg QHS. 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 We will continue to follow along. Vivian Gandhi MD ] VIVIAN GANDHI MD Dec 06, 2024 07:28
[2024-12-06] MEDS: PoTASSium chloRIDE 20MEQ ER 20 MEQ ERTAB PO ONE (07:45)
[2024-12-06] MEDS: predniSONE 20 MG TABLET PO SCH (08:56)
[2024-12-06] MEDS: furoSEMIDE 40 MG TABLET PO SCH (11:34)
--- NOTE | 2024-12-06 15:47 | NUR ---
Patient endorsed to nursing; ambulated well with no LOB. no need for O2 with no SOB Passed 6MWT with RT today Addendum: 12/06/24 at 1549 by BRANDEN DAVIS, [employer] PT Amended: Links added.
--- NOTE | 2024-12-06 16:41 | HMCIMG ---
CHEST 1VW HISTORY: CHF COMPARISON: 12/05/2024 FINDINGS: A frontal projection of the chest was obtained. There are bilateral pulmonary infiltrates suggestive of pulmonary vascular congestion with possible superimposed pneumonitis. The heart is borderline enlarged. Degenerative changes are seen. No evidence of aortic calcification is seen. IMPRESSION: 1. Bilateral pulmonary infiltrates are seen suggestive of pulmonary vascular congestion with possible superimposed pneumonitis. Mild interval worsening is seen.
--- NOTE | 2024-12-06 18:18 | PN ---
[facility] PROGRESS NOTE Date of Service: Dec 06, 2024 Time of Service: 18:16 SUBJECTIVE: This is a 49-year-old male with past medical history of diabetes, hyperlipidemia and hypertension who presented to the ED for complaints of left-sided chest pain. Labs in the ER WBC 11.7 with negative left shift of neutrophils 77.6, hemoglobin 13.1, hematocrit 39.4 platelet count 462. Sodium 131, potassium 4.5, chloride 95, carbon dioxide 34 glucose 488, ketones 0.2, troponin 1732 to 1661 BNP 1180. EKG result revealed sinus tachycardia heart rate 118 with probable anterior infarct age indeterminate. Toxicology screen positive for amphetamines. Patient seen and examined, still mildy tachycardic. During my visit patient on CPAP, alert oriented x3, following commands, admits to feeling less shortness a breath compared to time of admission. He has been started on Lasix drip. Also on heparin drip. Echocardiogram showed LVEF 25- Cardiology input noted and appreciated. Plan for inpatient vs outpatient CCTA. 3/ patient seen at bedside, no acute events overnight. He is diuresing well with a proximally five point L urine output, Lasix drip has been deescalated to oral Lasix 40 mg 3 times daily. He has been afebrile, hemodynamically stable continues on BiPAP. Blood pressure has been on the low side of normal, was started on midodrine, we will discuss the use of midodrine in the setting of severe CHF as it can be contraindicated. Remainder of his labs are relatively unremarkable. Venous Doppler showing DVT with noncompressible thrombus in the left popliteal vein, heparin drip discontinued today we will follow up with Cardiology regarding anticoagulation. 3 patient seen at bedside, no acute events overnight. He continues to diurese, cardiology recommending one more day of diuresis and transition to Eliquis from heparin. He has been afebrile, hemodynamically stable, his blood pressure is on the low side of normal, we will hold Entresto as he does not have the reserve to tolerate the medication, midodrine has been increased to 15 mg t.i.d., WBC increased from 12.1 up to 20.5, hemoglobin decreased from 11.8 down to 11.1, platelets 499, similar to yesterday, creatinine increased from 1.0 up to 1.2, remainder of his labs are relatively unremarkable. 12/05 Pt seen at bedside, nursing reporting some hematuria and clots in choi bag. Heparin will be held until PTT is back to normal. Choi catheter will be removed. Cardiology recommending starting eliquis this evening. Will order bladder scan to ensure no bladder output obstruction from retained clots. Pt continues diuresing well. He is saturating well on 2L nasal cannula, nursing to wean O2 with a goal of SaO2 88-92%. Will discontinue solumedrol and start PO prednisone 40mg q24h for 7 days. 12/06 patient seen at bedside, no acute events overnight. Choi catheter has been successfully removed, patient continues to urinate appropriately. Still on 2 L nasal cannula, nursing instructed to wean him off, we will perform a 6 minute wa lk test today. Plan is to discharge patient tomorrow unless further workup planned by pulmonology or Cardiology REVIEW OF SYSTEMS CONSTITUTIONAL: Denies fevers, chills, or night sweats. No unintentional weight loss reported. NEUROLOGICAL: Denies headache, amaurosis fugax, motor weakness, sensory deficit, vertigo/spinning sensation, gait abnormalities, or tremors. ENT: No hearing loss, otalgia, otorrhea, rhinitis, rhinorrhea, hoarseness, or sore throat. CARDIOVASCULAR: Complaints of chest pain dyspnea on exertion orthopnea Denies paroxysmal nocturnal dyspnea, palpitations, life-threatening arrhythmias, claudication. PULMONARY: Complaints of shortness of breaths and dry cough Denies phlegm/sputum, hemoptysis, pleuritic chest pain. SLEEP: Denies morning headaches, daytime somnolence or napping. Denies difficulty falling asleep, staying asleep, waking from sleep. Denies knowledge of snoring. GASTROINTESTINAL: Denies any type of dysphagia to either liquids or solids. Denies nausea, vomiting, pyrosis, early satiety, abdominal pain, diarrhea, constipation, or changes in stool consistency or caliber. Denies coffee-ground emesis, hematemesis, hematochezia, or melanotic stools. GENITOURINARY: Denies frequency, urgency, nocturia, hematuria or incontinence (Storage/Irritative symptoms.) Low urinary stream, straining to void, urinary intermittency or hesitancy, splitting of the voiding stream, terminal dribbling. ENDOCRINOLOGIC: Denies polyuria, polydipsia, polyphagia or heat/cold intolerances. HEMATOLOGIC: Denies thrombophilia/previous clots, or coagulopathy/bleeding disorders. ONCOLOGIC: Denies personal history of malignancy. DERMATOLOGIC: Denies rashes or pruritus. PSYCHIATRIC: Denies any suicidal or homicidal ideation. Denies hallucinations. PHYSICAL EXAM GENERAL APPEARANCE: The patient is awake, alert, and oriented, in no acute cardiopulmonary distress. NEUROLOGICAL: Cranial nerves II-XII grossly intact. Motor is 5/5 in bilateral upper and lower extremities proximal to distal. No sensory deficits. HEENT: Face is symmetric. Pupils are equal and reactive. Extraocular movements are intact. NECK: Supple. No JVD. No thyromegaly. No submental, submandibular, pre- /postauricular, occipital or supraclavicular lymphadenopathy. CHEST: Normal chest expansion. Telemetry. LUNGS: Crackles to the lower bases on both lung correa per auscultation CARDIOVASCULAR: Tachycardic and Regular. S1 and S2 normal. No appreciable rubs, murmurs or gallops. ABDOMEN: Soft, nontender, and nondistended. There is no rebound, voluntary guarding, or rigidity. : Deferred. No Choi. EXTREMITIES: 2+ edema to bilateral lower extremities Good capillary refill. SKIN: No skin breakdown. Vital Signs (last 8hr) Date Time Temp Pulse Resp B/P (MAP) Pulse Ox O2 Delivery O2 Flow Rate FiO2 12/06/24 16:00 98.6 95 20 107/78 97 Room Air 12/06/24 11:41 89 18 12/06/24 11:00 98.2 89 20 93/65 93 Room Air LABS: Laboratory: Test 12/06/24 16:29 12/06/24 10:34 12/06/24 04:38 12/05/24 08:04 Range/Units Whole Blood Glucose 318 H 70-110 MG/DL Bedside Glucose Comment Notified Nurse Potassium Level 4.0 3.5-5.1 mmol/L White Blood Count 13.2 H 4.8-10.8 K/uL Red Blood Count 4.61 4.50-6.20 MIL/uL Hemoglobin 13.1 L 14.0-18.0 g/dL Hematocrit 40.3 L 42-54 % Mean Corpuscular Volume 87.4 79-99 fL Mean Corpuscular Hemoglobin 28.4 27.0-33.0 pg Mean Corpuscular Hemoglobin Concent 32.5 32.0-36.0 g/dL Red Cell Distribution Width 12.6 11.0-15.5 % Platelet Count 577 H 130-400 K/uL Mean Platelet Volume 9.1 7.5-10.5 fL Immature Granulocyte % (Auto) 0.6 0-1 % Neutrophils (%) (Auto) 68.4 40.0-77.0 % Lymphocytes (%) (Auto) 22.3 21.0-51.0 % Monocytes (%) (Auto) 8.6 3.0-13.0 % Eosinophils (%) (Auto) 0.1 0.0-8.0 % Basophils (%) (Auto) 0.0 0.0-5.0 % Neutrophils # (Auto) 9.1 H 1.8-7.7 K/uL Lymphocytes # (Auto) 3.0 1.0-4.8 K/uL Monocytes # (Auto) 1.1 H 0.1-1.0 K/uL Eosinophils # (Auto) 0.01 0.00-0.70 K/uL Basophils # (Auto) 0.00 0.00-0.20 K/uL Absolute Immature Granulocyte (auto 0.08 0-1 K/uL Nucleated Red Blood Cells 0.0 0.0-0.19 % Sodium Level 140 136-145 mmol/L Chloride Level 101 101-111 mmol/L Carbon Dioxide Level 33 H 21-32 mmol/L Blood Urea Nitrogen 16 7-18 mg/dL Creatinine 1.0 0.5-1.3 mg/dL Glomerular Filtration Rate Calc 93 >90 mL/min Random Glucose 160 H 70-105 mg/dL Total Calcium 9.0 8.5-10.1 mg/dL Prothrombin Time 11.8 H 9.6-11.6 SEC Prothromb Time International Ratio 1.13 0.85-1.15 Activated Partial Thromboplast Time 32.2 # 26.3-35.5 SEC Current Medications Medications (Trade) Dose Ordered Sig/Nasim Route PRN Reason Start Time Stop Time Status Last Admin Dose Admin Acetaminophen (TYLenol 325MG TAB) 650 mg Q4H PRN PO MILD PAIN (1-3) 12/01/24 01:30 12/31/24 01:29 12/01/24 20:18 650 MG Acetaminophen (TYLenol 325MG TAB) 650 mg Q6H PRN PO TEMPERATURE GREATER THAN 101.5 12/01/24 01:30 12/31/24 01:29 Albuterol (DUOneb) 1 udvial [id number] PRN IH COUGH 12/01/24 01:30 12/02/24 19:26 DC 12/02/24 18:55 1 UDVIAL Apixaban (EliquIS) 5 mg BID PO 12/05/24 21:00 01/04/25 20:59 12/06/24 08:56 5 MG Aspirin (Aspirin 81mg Ec Tab) 81 mg DAILY PO 12/01/24 09:00 12/31/24 08:59 12/06/24 08:55 81 MG Atenolol (Atenolol) 50 mg DAILY PO 12/01/24 09:00 12/03/24 11:18 DC 12/03/24 09:57 50 MG Atorvastatin Calcium (LIPItor 10MG) 5 mg DAILY PO 12/01/24 09:00 12/03/24 07:13 DC 12/02/24 08:07 5 MG Atorvastatin Calcium (LIPItor 10MG) 5 mg HS PO 12/03/24 21:00 12/03/24 11:22 DC Atorvastatin Calcium (LIPItor 40MG) 40 mg HS PO 12/03/24 21:00 01/02/25 20:59 12/05/24 20:55 40 MG Benzonatate (Tessalon 100mg Caps) 200 mg Q8H PO 12/05/24 09:00 01/04/25 08:59 12/06/24 16:24 200 MG Ceftriaxone Sodium (ROCEphine 1G INJ) 1 gm Q24H IVPB 12/01/24 09:30 12/02/24 08:16 DC 12/01/24 09:48 1 GM Ceftriaxone Sodium (Rocephin 2gm Inj) 2 gm Q24H IVPB 12/02/24 09:30 12/02/24 14:39 DC 12/02/24 09:59 2 GM Dextrose (D50w) 50 ml AD PRN IV HYPOGLYCEMIA PROTOCOL 12/01/24 01:30 12/31/24 01:29 Doxycycline Hyclate 250 ml @ 125 mls/hr Q12H IV 12/01/24 11:00 12/11/24 10:59 12/06/24 11:36 125 MLS/HR Enoxaparin Sodium (Lovenox) 30 mg DAILY SQ 12/01/24 09:00 12/01/24 09:32 DC 12/01/24 08:49 30 MG Famotidine (Pepcid 20mg Tab) 20 mg BID PO 12/01/24 09:00 12/02/24 14:42 DC 12/02/24 08:07 20 MG Folic Acid (FOLic ACID 1 MG TABLET) 1 mg DAILY PO 12/04/24 09:00 12/06/24 09:01 DC 12/06/24 08:56 1 MG Furosemide (LASix 20MG VIAL) 20 mg Q12H IV 12/01/24 09:00 12/01/24 11:13 DC 12/01/24 08:48 20 MG Furosemide (LASix 20MG VIAL) 20 mg Q12H IV 12/01/24 11:30 12/01/24 16:26 DC 12/01/24 11:35 20 MG Furosemide (LASix 40MG TAB) 40 mg BID@09,17 PO 12/06/24 09:00 01/05/25 08:59 12/06/24 16:25 40 MG Furosemide (LASix 40MG VIAL) 40 mg Q12H IV 12/02/24 20:30 12/02/24 14:11 DC Furosemide (LASix 40MG VIAL) 40 mg Q12H IV 12/03/24 11:00 12/03/24 22:10 DC 12/03/24 13:46 40 MG Furosemide (LASix 40MG VIAL) 40 mg Q12H IV 12/04/24 02:30 12/06/24 07:25 DC 12/06/24 02:41 40 MG Furosemide (LASix 40MG VIAL) 40 mg Q8H IV 12/01/24 16:30 12/02/24 12:58 DC 12/02/24 08:07 40 MG Furosemide (LASix 40MG VIAL) 40 mg Q8H IV 12/02/24 14:00 12/02/24 14:13 DC Furosemide (LASix 40MG VIAL) 40 mg Q8H IV 12/02/24 14:30 12/02/24 14:39 DC 12/02/24 14:25 40 MG Furosemide 100 mg/ Sodium Chloride 100 ml @ 0 mls/hr PROTOCOL IV 12/02/24 15:00 12/03/24 10:59 DC 12/02/24 15:23 5 MLS/HR Glucagon (Glucagon 1mg Kit) 1 mg AD PRN IM HYPOGLYCEMIA PROTOCOL 12/01/24 01:30 12/31/24 01:29 Guaifenesin/ Dextromethorphan (RobiTUSSin DM 200/20MG 10ML) 10 ml Q4H PRN PO COUGH 12/01/24 01:30 12/31/24 01:29 12/04/24 10:00 10 ML Heparin Sodium/ Dextrose 250 ml @ 0 mls/hr PROTOCOL IV 12/01/24 10:00 12/03/24 11:18 DC 12/03/24 01:19 13.26 MLS/HR Heparin Sodium/ Dextrose 250 ml @ 0 mls/hr PROTOCOL IV 12/03/24 17:30 12/05/24 08:20 DC 12/04/24 01:52 12.71 MLS/HR Insulin Glargine (LANtus 100 UNITS/ML 10 ML VIAL) 10 units HS SQ 12/01/24 21:00 12/02/24 08:18 DC 12/01/24 20:18 10 UNITS Insulin Glargine (LANtus 100 UNITS/ML 10 ML VIAL) 20 units BID SQ 12/02/24 09:00 12/04/24 00:00 DC 12/03/24 21:44 20 UNITS Insulin Glargine (LANtus 100 UNITS/ML 10 ML VIAL) 30 units BID SQ 12/04/24 09:00 12/05/24 04:25 DC 12/04/24 20:32 30 UNITS Insulin Glargine (LANtus 100 UNITS/ML 10 ML VIAL) 35 units BID SQ 12/05/24 09:00 01/04/25 08:59 12/06/24 09:08 35 UNITS Insulin Human Regular (humuLIN R 100 UNIT/ML 3ML) INSULIN SLIDING SCAL... ACHS SQ 12/01/24 07:30 12/31/24 07:29 12/06/24 16:45 7 UNIT Ipratropium Mcadoo (AtrovENT UD) 0.5 MG [id number] IH 12/02/24 18:00 12/02/24 14:13 DC Ipratropium Mcadoo (AtrovENT UD) 0.5 mg [id number] IH 12/03/24 00:00 01/02/25 00:00 12/06/24 11:41 0.5 MG Lorazepam (AtiVAN) 2 mg Q4H PRN IVP ALCOHOL WITHDRAWAL PROTOCOL 12/03/24 11:00 12/10/24 10:59 Lorazepam (AtiVAN) 4 mg Q2H PRN IVP ALCOHOL WITHDRAWAL PROTOCOL 12/03/24 11:00 12/10/24 10:59 Magnesium Sulfate 50 ml @ 0 mls/hr PROTOCOL PRN IV OTHER [SEE ORDER COMMENTS] 12/01/24 01:30 12/31/24 01:29 12/02/24 05:57 25 MLS/HR Methylprednisolone Sodium Succinate (Solu-medROL 40MG) 20 mg Q8H IVP 12/04/24 05:00 12/05/24 09:30 DC 12/05/24 03:41 20 MG Methylprednisolone Sodium Succinate (Solu-medROL 40MG) 40 mg BID IVP 12/02/24 21:00 12/04/24 00:06 DC 12/03/24 21:13 40 MG Metoprolol Succinate (TopROL XL) 25 mg DAILY PO 12/04/24 09:00 12/05/24 07:38 DC 12/04/24 09:57 25 MG Midodrine (PROAMatine 5 MG TABLET) 10 mg TID PO 12/03/24 14:00 12/04/24 13:08 DC 12/04/24 09:56 10 MG Midodrine (PROAMatine 5 MG TABLET) 15 mg TID PO 12/04/24 14:00 01/03/25 13:59 12/06/24 13:19 15 MG Montelukast Sodium (SinguLAIR) 10 mg DAILY PO 12/03/24 09:00 01/02/25 08:59 12/06/24 08:57 10 MG Multivitamins Therapeutic (Multivitamin Tablet) 1 tab DAILY PO 12/04/24 09:00 01/03/25 08:59 12/06/24 08:56 1 TAB Nitroglycerin (Nitroglycerin 1gm Oint) 0.5 inch Q8H TD 12/01/24 01:30 12/31/24 01:29 12/06/24 16:45 0.5 INCH Nitroglycerin (Nitrostat) 0.4 mg PROTOCOL PRN SL CHEST PAIN 12/01/24 01:30 12/31/24 01:29 Ondansetron HCl (zoFRAN 4MG INJ) 4 mg Q4H PRN IV NAUSEA 12/03/24 11:00 01/02/25 10:59 Ondansetron HCl (zoFRAN 4MG INJ) 4 mg Q6H PRN IV NAUSEA/VOMITING 12/01/24 01:30 12/03/24 10:51 DC Pantoprazole Sodium (PROTonix 40MG INJ) 40 mg DAILY IVP 12/03/24 09:00 01/02/25 08:59 12/06/24 08:55 40 MG Pharmacy Profile Note (Pharmacy Communication) 1 each ONCE MISC 12/02/24 15:00 12/03/24 07:13 DC Pharmacy Profile Note (Pharmacy Communication) 1 each PROTOCOL PRN MISC ETOH Withdrawal Score changes 12/03/24 11:00 12/10/24 10:59 Piperacillin Sod/ Tazobactam Sod (Zosyn 3.375gm+NS 50ml) 3.375 gm Q8H IV 12/02/24 15:00 12/05/24 07:38 DC 12/05/24 01:16 3.375 GM Piperacillin Sod/ Tazobactam Sod (Zosyn 3.375gm+NS 50ml) 3.375 gm Q8H IV 12/05/24 09:00 12/12/24 22:00 12/06/24 16:24 3.375 GM Potassium Chloride 100 ml @ 100 mls/hr AD PRN IV POTASSIUM PROTOCOL 12/01/24 01:30 12/31/24 01:29 Potassium Chloride (K-Dur/Klor-Con 20meq) 20 meq AD PRN PO POTASSIUM PROTOCOL 12/01/24 01:30 12/31/24 01:29 12/06/24 06:16 20 MEQ Potassium Chloride (K-Dur/Klor-Con 20meq) 20 meq BID PO 12/06/24 21:00 01/05/25 20:59 Potassium Chloride (KCl 10% Elixir 20meq/15ml) 20 meq AD PRN PO POTASSIUM PROTOCOL 12/01/24 01:30 12/31/24 01:29 Prednisone (deltaSONE/ oraSONE 20MG TAB) 40 mg DAILY PO 12/06/24 09:00 12/12/24 09:01 12/06/24 08:56 40 MG Promethazine HCl (Phenergan) 25 mg Q6H PRN PO NAUSEA 12/03/24 11:00 01/02/25 10:59 Thiamine HCl (Vitamin B-1) 300 mg DAILY IM 12/04/24 09:00 12/06/24 09:01 DC 12/06/24 08:55 300 MG DIAGNOSTICS / RADIOLOGY: [ ] ASSESSMENT: Acute respiratory failure with hypoxia, improving POA NSTEMI POA Acute combined CHF exacerbation, Systolic EF 25-30%, stage III diastolic dysfunction, POA Bilateral pleural effusion, POA Bilateral multifocal pneumonia vs volume overload Uncontrolled diabetes with hyperglycemia last A1C 12.5, POA Hematuria, s/p Choi, removed (12/05/24) Normocytic normochromic anemia POA Acute thrombocytosis POA Pseudohyponatremia secondary to hyperglycemia, improving, POA Hyperlipidemia POA Nicotine dependence POA 76 pack-year smoker, POA Positive amphetamines POA PLAN: Continue admission to PCU Continue CPAP Continue on consistent carb and heart healthy diet Continue Famotidine 20 mg p.o. bid for GI prophylaxis Continue lasix Continue midodrine to 15 mg t.i.d. Hold heparin, Start Eliquis tonight Remove choi catheter Bladder scan tonight before resuming eliquis Monitor urine output Continue aspirin 81 mg p.o. daily Daily weight and strict I&O Fluid restriction 1.5 L per day Continue to follow cardiology recommendations. Continue to follow Pulmonary input and recommendation Case discussed with attending physician and came up with above treatment and plan of care. Possible CCTA per Cardiology once more stable Total time spent 30 minutes. Disposition: Pending diuresis, resolution of hematuria, improvement in respiratory status and Cardiology recommendations RASHEED GARCIA MD Dec 06, 2024 18:18
[2024-12-06] MEDS: PoTASSium chloRIDE 20MEQ ER 20 MEQ ERTAB PO SCH (20:23)
--- NOTE | 2024-12-06 20:35 | PN ---
[facility] PROGRESS NOTE Date Patient Seen: Dec 06, 2024 Time of Visit: 20:33 Supervising Physician: Dr. 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 He appeared moderate distress. Sinus tachycardic 114 beats per minute respiratory rate of 24 saturating 94% with 3 L via nasal cannula and afebrile. Patient had urine output of 1.9 L in the last 24 hours with a balance of-1.5 L. he is currently on Lasix 40 mg q.8 hours IV. Chest x-ray shows [place] pulmonary edema with multifocal bilateral infiltrates. ABG was done with results of pH of 7.45 pCO2 of 32 PO2 of 63 and bicarb 21.8 consistent with respiratory alkalosis from over breathing due to hypoxemia. Place patient on Lasix drip 5 milligrams/hour and CPAP machine with pressure support of 10 FiO2 of 50%. Patient tolerating it well. WBCs of 14.6 H&H of 12.1/36.4. On chemistries sodium 131 chloride 95 kidneys are doing well creatinine 1.0 GFR of 93 glucose has been elevated 272 mg/dL this morning added Lantus. Due to severe pneumoniae in the history of smoking change Rocephin to Zosyn to cover for Pseudomonas. Added Solu-Medrol 40 mg b.i.d. for severe pneumonia. Dr Gandhi radioisotope technician updated and we will continue to follow cardiology recommendations. Patient to continue with aspirin, beta simón, statin therapy per ACS guidelines and he continues currently on a heparin drip For NSTEMI. I have updated patient and who was at the bedside with current clinical findings and plan of care. Both verbalized understanding and answered all their questions. They are both in agreement with plan of care. 12/04/2024: At the time of my evaluation, the patient was sitting up in bed. He reports feeling much better today. The patient is awake alert and oriented x4, he is verbally interactive with appropriate responses. Currently, the patient is requiring oxygen supplementation with nasal cannula 2 liters/minute and denies any shortness of breath. He remains on Solu-Medrol 20 mg q.8 hours. Ca rdiac-mercado, the patient is hemodynamically stable, with blood pressure trends marginally low. He remains on a heparin drip. Chemistry panel obtained today shows a sodium of 134, potassium of 3.7, chloride 100, CO2 of 28, BUN 31 creatinine of 1.2 and blood glucose of 290. Patient had a cumulative balance of positive 212.0. On CBC, the patient had a WBC of 20.5, H&H 11.1/33.6 and a platelet count of 499. The patient remains on antibiotic coverage with Zosyn and doxy. Respiratory cultures showing Yesica albicans. Blood cultures x2 were negative. Staff nurse reports no acute events overnight. No other complaint. 12/05/2024: At the time of my evaluation, the patient is lying in bed. He remains on a nasal cannula 2 L. on the monitor, the patient is hemodynamically stable. Laboratory data showed a slight improvement of WBC to 18.5. Chemistry panel was remarkable for elevated blood glucose in the 200s. Microbiology data showing blood cultures x2 negative and Yesica albicans in respiratory culture. Chest x-ray today showed no acute airspace disease. No other complaint. 12/06/2024: At the time of my evaluation, the patient is lying bed. Staff nurse reports no acute events overnight. Patient remains on room air and is hemodynamically stable on the monitor. Laboratory data shows improving WBC count 13.6 today from 18.5. H and H and platelet count are stable. Chemistry panel was notable for a potassium of 3.3. Chest x-ray today showed persisting pulmonary infiltrates and vascular congestion. No other complaint. REVIEW OF SYSTEMS: 12 point ROS reviewed with patient. Pertinent positives mentioned above. Otherwise negative. PHYSICAL EXAM: GENERAL: alert, weak, awake oriented x 3 HEENT: EOMI, Sclera non icteric, moist mucosa NECK: Supple, no JVD, trachea midline LUNGS: Diminished breath sounds bilaterally. No wheezes HEART: Regular rate and rhythm. Normal S1 and S2, without murmurs ABD: Abdomen soft, nontender. Bowel sounds present EXT: No clubbing cyanosis or edema, + 1 pitting edema to LLE, NEURO: Alert and oriented to person, follows commands Vital Signs (last 8hr) Date Time Temp Pulse Resp B/P (MAP) Pulse Ox O2 Delivery O2 Flow Rate FiO2 12/06/24 20:28 98 Room Air* 0 21 12/06/24 19:49 98.1 77 18 98/72 98 Room Air 12/06/24 19:20 99 18 N/A Room Air 21 12/06/24 19:18 99 18 12/06/24 16:00 98.6 95 20 107/78 97 Room Air LABS: Hematology Labs: Test 12/06/24 04:38 Range/Units White Blood Count 13.2 H 4.8-10.8 K/uL Red Blood Count 4.61 4.50-6.20 MIL/uL Hemoglobin 13.1 L 14.0-18.0 g/dL Hematocrit 40.3 L 42-54 % Mean Corpuscular Volume 87.4 79-99 fL Mean Corpuscular Hemoglobin 28.4 27.0-33.0 pg Mean Corpuscular Hemoglobin Concent 32.5 32.0-36.0 g/dL Red Cell Distribution Width 12.6 11.0-15.5 % Platelet Count 577 H 130-400 K/uL Mean Platelet Volume 9.1 7.5-10.5 fL Immature Granulocyte % (Auto) 0.6 0-1 % Neutrophils (%) (Auto) 68.4 40.0-77.0 % Lymphocytes (%) (Auto) 22.3 21.0-51.0 % Monocytes (%) (Auto) 8.6 3.0-13.0 % Eosinophils (%) (Auto) 0.1 0.0-8.0 % Basophils (%) (Auto) 0.0 0.0-5.0 % Neutrophils # (Auto) 9.1 H 1.8-7.7 K/uL Lymphocytes # (Auto) 3.0 1.0-4.8 K/uL Monocytes # (Auto) 1.1 H 0.1-1.0 K/uL Eosinophils # (Auto) 0.01 0.00-0.70 K/uL Basophils # (Auto) 0.00 0.00-0.20 K/uL Absolute Immature Granulocyte (auto 0.08 0-1 K/uL Nucleated Red Blood Cells 0.0 0.0-0.19 % Chemistry Labs: Test 12/06/24 19:48 12/06/24 16:29 12/06/24 10:34 12/06/24 04:38 Range/Units Whole Blood Glucose 331 H 70-110 MG/DL Bedside Glucose Comment Notified Nurse Potassium Level 4.0 3.5-5.1 mmol/L Sodium Level 140 136-145 mmol/L Chloride Level 101 101-111 mmol/L Carbon Dioxide Level 33 H 21-32 mmol/L Blood Urea Nitrogen 16 7-18 mg/dL Creatinine 1.0 0.5-1.3 mg/dL Glomerular Filtration Rate Calc 93 >90 mL/min Random Glucose 160 H 70-105 mg/dL Total Calcium 9.0 8.5-10.1 mg/dL Coagulation Labs: Test 12/05/24 08:04 Range/Units Prothrombin Time 11.8 H 9.6-11.6 SEC Prothromb Time International Ratio 1.13 0.85-1.15 Activated Partial Thromboplast Time 32.2 # 26.3-35.5 SEC DIAGNOSTICS / RADIOLOGY RESULTS: [ ] PLAN IV ABX with zosyn and doxy stop lasix drip continue with lasix IVP Continue heparin for now for DVT until PO AC has been started cpap cardiac monitoring dc duoneb start atrovent nebs prn Solu-Medrol 40mg ivp bid for severe pneumonia, wean as possible now 20mg IVP q8hrs hepatitis panel follow cardiology recommendations currently on heparin gtt -Arrange outpatient pulmonology referral for sleep study, PFT and follow-up management upon discharge singulair protonix for GI PPX fc placement HIV ltest with reflex negative monito resp status closely, repeat abg if decline in resp status he is high risk for decompensations. 12/04/2024: For now, going to continue current management for the patient. We will continue oxygen supplementation via the nasal cannula. Also, the patient is going to remain on steroid therapy. We will order chest x-ray for tomorrow. The patient will remain on a heparin drip and we will follow the Cardiology input on management. We are going to monitor the WBC trend and treat accordingly. We will continue antibiotic course with Zosyn and doxy as ordered. We will repeat surveillance labs in the morning. We will monitor the patient's progress and response to management. We will continue to provide general supportive care, GI and DVT prophylaxis. Further orders per attending MD and hospital course. 12/05/2024: For now, going to continue current management for the patient. He will continue on oxygen supplementation via nasal cannula and we will adjust as necessary. The patient was remain on antibiotic therapy due to pneumonia currently covered with Zosyn and doxycycline. We will continue with steroid therapy prednisone 40 daily and we will replace electrolyte deficit. Per the Cardiology team, the patient to continue with IV diuresis x1 more day and advised that the patient will not tolerate Entresto. Heparin drip was stopped and the patient will transition over to p.o. Eliquis. We will monitor the patient's progress and we will adjust management as necessary. Further orders per attending MD and hospital course. 12/06/2024: For now, going to continue current management for the patient. We are going to continue antibiotic therapy as ordered and steroid dose. The patient remains on diuretic therapy with furosemide 40 b.i.d.. We are going to follow the input of the Cardiology team. We will continue to provide general supportive care, GI and DVT prophylaxis. Further orders per attending MD and hospital course. NEURO: Minimize central acting medications as possible. Maintain fall precautions, adequate lighting during the day PULMONARY: Supplemental 02 as needed. Maintain aspiration precautions at all times CARDIOVASCULAR: Follow hemodynamics. Vital signs per facility protocol GI & NUTRITION: Continue with nutritional support. Continue stool softeners and laxatives as needed. KIDNEYS & ELECTROLYTES: Strict monitoring of intake, output and overall fluid balance. Avoid nephrotoxic medications to the extent possible. Medications to be dosed according to renal function. Monitor electrolytes and replace as needed ENDOCRINE: Maintain blood glucose between 100-180 at all times. Hypoglycemia protocol in place INFECTIOUS DISEASE: Trend temperature, WBC and procalcitonin level Follow cultures, deescalate antibiotics as soon as possible. Panculture if new onset fever ONCOLOGY/HEMATOLOGY/COAGULATION: Monitor for s/s of bleeding Monitor hemoglobin, coagulation studies as needed SKIN: Pressure ulcer prevention per facility protocol Specialty mattress ORTHO/REHAB: Continue PT/OT Prophylaxis: Continue GI and DVT prophylaxis Code Status: Full Resuscitation Disposition: TBD Other: Total patient care time exceeds 35 minutes excluding all procedures. AFSHAN BURGESS NP Dec 06, 2024 20:35
[2024-12-07] VITALS (7 sets, daily range): BP systolic 112–119; BP diastolic 70–80; PULSE 92–100; RESP 18–20; TEMP 97.5–98.7; O2SAT 97
[2024-12-07] MEDS ORDERED: AMOX1TAB16 PO (07:09)
[2024-12-07] MEDS ORDERED: FURO40TA7 PO (07:09)
[2024-12-07] MEDS ORDERED: MIDO5TAB4 PO (07:09)
[2024-12-07] MEDS ORDERED: APIX5TAB PO (07:09)
[2024-12-07] MEDS ORDERED: AEC81 PO (07:09)
[2024-12-07] MEDS ORDERED: MONT-46 PO (07:09)
[2024-12-07] MEDS ORDERED: ADV250 IH (07:09)
[2024-12-07] MEDS ORDERED: DOXY100C5 PO (07:09)
[2024-12-07] MEDS ORDERED: PRED20B PO (07:09)
--- NOTE | 2024-12-07 08:38 | PN ---
[facility] PROGRESS NOTE Date Patient Seen: Dec 07, 2024 Time of Visit: 08:36 Interval History: [ CXR significantly improved. Leukocytosis resolving significantly. Urine output 7.4L/24hrs. Cr stable at 1.0.] Physical Examination: GENERAL: [No acute distress.] HEAD: [Normal with no signs of head trauma.] EYES: [PERRLA, EOMI, conjunctiva and sclera normal.] ENT: [Hearing grossly intact, normal oropharynx.] NECK: [Supple without JVD. There is no tenderness, lymphadenopathy, or masses. No thyromegaly. Normal carotid upstrokes without bruits.] LUNGS: [CTA b/l] HEART: [Normal rate and rhythm. Normal S1 and S2 without murmurs, gallop or rub.] VASC: [Peripheral pulses +2 bilaterally.] ABD: [Bowel sounds normal, soft, nontender, no masses, no organomegaly. No audible bruits.] : [Not examined] LYMPH: [No lymphadenopathy noted.] EXT: [no edema.] SKIN: [No rashes or lesions noted.] NEURO: [Awake, alert, and oriented x3. No focal sensory or strength deficits noted.] Laboratory: [ ] Hematology Labs: Test 12/06/24 04:38 Range/Units White Blood Count 13.2 H 4.8-10.8 K/uL Red Blood Count 4.61 4.50-6.20 MIL/uL Hemoglobin 13.1 L 14.0-18.0 g/dL Hematocrit 40.3 L 42-54 % Mean Corpuscular Volume 87.4 79-99 fL Mean Corpuscular Hemoglobin 28.4 27.0-33.0 pg Mean Corpuscular Hemoglobin Concent 32.5 32.0-36.0 g/dL Red Cell Distribution Width 12.6 11.0-15.5 % Platelet Count 577 H 130-400 K/uL Mean Platelet Volume 9.1 7.5-10.5 fL Immature Granulocyte % (Auto) 0.6 0-1 % Neutrophils (%) (Auto) 68.4 40.0-77.0 % Lymphocytes (%) (Auto) 22.3 21.0-51.0 % Monocytes (%) (Auto) 8.6 3.0-13.0 % Eosinophils (%) (Auto) 0.1 0.0-8.0 % Basophils (%) (Auto) 0.0 0.0-5.0 % Neutrophils # (Auto) 9.1 H 1.8-7.7 K/uL Lymphocytes # (Auto) 3.0 1.0-4.8 K/uL Monocytes # (Auto) 1.1 H 0.1-1.0 K/uL Eosinophils # (Auto) 0.01 0.00-0.70 K/uL Basophils # (Auto) 0.00 0.00-0.20 K/uL Absolute Immature Granulocyte (auto 0.08 0-1 K/uL Nucleated Red Blood Cells 0.0 0.0-0.19 % Chemistry Labs: Test 12/07/24 05:28 12/06/24 16:29 12/06/24 10:34 12/06/24 04:38 Range/Units Whole Blood Glucose 72 # 70-110 MG/DL Bedside Glucose Comment Notified Nurse Potassium Level 4.0 3.5-5.1 mmol/L Sodium Level 140 136-145 mmol/L Chloride Level 101 101-111 mmol/L Carbon Dioxide Level 33 H 21-32 mmol/L Blood Urea Nitrogen 16 7-18 mg/dL Creatinine 1.0 0.5-1.3 mg/dL Glomerular Filtration Rate Calc 93 >90 mL/min Random Glucose 160 H 70-105 mg/dL Total Calcium 9.0 8.5-10.1 mg/dL Diagnostics / Radiology: [Copy/Paste Echos/Imaging Report here] Impression and Plan: [Elevated Trop, likely type II VT in setting of pneumonia and CHF 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 No need to trend enzymes. - amphetamine use on UDS -12/06 transitioned lasix 40 mg IV q12h to po, added K 20 meq bid. Cr stable -Continue asa 325 mg x1, asa 81 mg qd and plavix 300 mg x1 - Lipitor 40 mg QHS. 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 I will sign off. He may follow up in clinic in one week after discharge. Vivian Gandhi MD ] VIVIAN GANDHI MD Dec 07, 2024 08:38
--- NOTE | 2024-12-07 09:43 | HMCIMG ---
PORTABLE CHEST RADIOGRAPH INDICATION: chf COMPARISON: 12/06/2024 FINDINGS: case monitor leads overlie the field of view. Heart size is normal. The pulmonary vascularity and flynn appear normal. No abnormal pulmonary parenchymal opacity or consolidation identified. Right costophrenic angle is slightly blunted. No pneumothorax detected. IMPRESSION: Trace right pleural fluid.
--- NOTE | 2024-12-07 11:45 | NUR ---
DISMISSAL INSTRUCTIONS GIVEN. VERBALIZED UNDERSTANDING. REMOVED SALINE LOCK FROM RIGHT ARM AND LEFT ARM, IV SITES WITHOUT REDNESS NOTED. REMOVED TELE PACK.
--- NOTE | 2024-12-07 12:52 | PN ---
[facility] PROGRESS NOTE Date Patient Seen: Dec 07, 2024 Time of Visit: 12:52 Supervising Physician: Dr. 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 He appeared moderate distress. Sinus tachycardic 114 beats per minute respiratory rate of 24 saturating 94% with 3 L via nasal cannula and afebrile. Patient had urine output of 1.9 L in the last 24 hours with a balance of-1.5 L. he is currently on Lasix 40 mg q.8 hours IV. Chest x-ray shows [place] pulmonary edema with multifocal bilateral infiltrates. ABG was done with results of pH of 7.45 pCO2 of 32 PO2 of 63 and bicarb 21.8 consistent with respiratory alkalosis from over breathing due to hypoxemia. Place patient on Lasix drip 5 milligrams/hour and CPAP machine with pressure support of 10 FiO2 of 50%. Patient tolerating it well. WBCs of 14.6 H&H of 12.1/36.4. On chemistries sodium 131 chloride 95 kidneys are doing well creatinine 1.0 GFR of 93 glucose has been elevated 272 mg/dL this morning added Lantus. Due to severe pneumoniae in the history of smoking change Rocephin to Zosyn to cover for Pseudomonas. Added Solu-Medrol 40 mg b.i.d. for severe pneumonia. 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 Patient to continue with aspirin, beta simón, statin therapy per ACS guidelines and he continues currently on a heparin drip For NSTEMI. I have updated patient and who was at the bedside with current clinical findings and plan of care. Both verbalized understanding and answered all their questions. They are both in agreement with plan of care. 12/04/2024: At the time of my evaluation, the patient was sitting up in bed. He reports feeling much better today. The patient is awake alert and oriented x4, he is verbally interactive with appropriate responses. Currently, the patient is requiring oxygen supplementation with nasal cannula 2 liters/minute and denies any shortness of breath. He remains on Solu-Medrol 20 mg q.8 hours. Ca rdiac-mercado, the patient is hemodynamically stable, with blood pressure trends marginally low. He remains on a heparin drip. Chemistry panel obtained today shows a sodium of 134, potassium of 3.7, chloride 100, CO2 of 28, BUN 31 creatinine of 1.2 and blood glucose of 290. Patient had a cumulative balance of positive 212.0. On CBC, the patient had a WBC of 20.5, H&H 11.1/33.6 and a platelet count of 499. The patient remains on antibiotic coverage with Zosyn and doxy. Respiratory cultures showing Yesica albicans. Blood cultures x2 were negative. Staff nurse reports no acute events overnight. No other complaint. 12/05/2024: At the time of my evaluation, the patient is lying in bed. He remains on a nasal cannula 2 L. on the monitor, the patient is hemodynamically stable. Laboratory data showed a slight improvement of WBC to 18.5. Chemistry panel was remarkable for elevated blood glucose in the 200s. Microbiology data showing blood cultures x2 negative and Yesica albicans in respiratory culture. Chest x-ray today showed no acute airspace disease. No other complaint. 12/06/2024: At the time of my evaluation, the patient is lying bed. Staff nurse reports no acute events overnight. Patient remains on room air and is hemodynamically stable on the monitor. Laboratory data shows improving WBC count 13.6 today from 18.5. H and H and platelet count are stable. Chemistry panel was notable for a potassium of 3.3. Chest x-ray today showed persisting pulmonary infiltrates and vascular congestion. No other complaint. 12/07/2024: At the time of my evaluation, the patient was sitting up at the bedside. Family members were present. The staff nurse reports no acute events overnight. He is on room air. On the monitor, he is hemodynamically stable. No new labs for review today. Repeat chest x-ray today showed no acute airspace disease. Patient has no new complaint. REVIEW OF SYSTEMS: 12 point ROS reviewed with patient. Pertinent positives mentioned above. Otherwise negative. PHYSICAL EXAM: GENERAL: alert, weak, awake oriented x 3 HEENT: EOMI, Sclera non icteric, moist mucosa NECK: Supple, no JVD, trachea midline LUNGS: Diminished breath sounds bilaterally. No wheezes HEART: Regular rate and rhythm. Normal S1 and S2, without murmurs ABD: Abdomen soft, nontender. Bowel sounds present EXT: No clubbing cyanosis or edema, + 1 pitting edema to LLE, NEURO: Alert and oriented to person, follows commands Vital Signs (last 8hr) Date Time Temp Pulse Resp B/P (MAP) Pulse Ox O2 Delivery O2 Flow Rate FiO2 12/07/24 08:04 97 Room Air* 0 21 12/07/24 08:00 97.5 94 20 112/70 100 Room Air 12/07/24 07:25 100 18 12/07/24 07:24 100 18 N/A Room Air 21 LABS: Hematology Labs: Test 12/06/24 04:38 Range/Units White Blood Count 13.2 H 4.8-10.8 K/uL Red Blood Count 4.61 4.50-6.20 MIL/uL Hemoglobin 13.1 L 14.0-18.0 g/dL Hematocrit 40.3 L 42-54 % Mean Corpuscular Volume 87.4 79-99 fL Mean Corpuscular Hemoglobin 28.4 27.0-33.0 pg Mean Corpuscular Hemoglobin Concent 32.5 32.0-36.0 g/dL Red Cell Distribution Width 12.6 11.0-15.5 % Platelet Count 577 H 130-400 K/uL Mean Platelet Volume 9.1 7.5-10.5 fL Immature Granulocyte % (Auto) 0.6 0-1 % Neutrophils (%) (Auto) 68.4 40.0-77.0 % Lymphocytes (%) (Auto) 22.3 21.0-51.0 % Monocytes (%) (Auto) 8.6 3.0-13.0 % Eosinophils (%) (Auto) 0.1 0.0-8.0 % Basophils (%) (Auto) 0.0 0.0-5.0 % Neutrophils # (Auto) 9.1 H 1.8-7.7 K/uL Lymphocytes # (Auto) 3.0 1.0-4.8 K/uL Monocytes # (Auto) 1.1 H 0.1-1.0 K/uL Eosinophils # (Auto) 0.01 0.00-0.70 K/uL Basophils # (Auto) 0.00 0.00-0.20 K/uL Absolute Immature Granulocyte (auto 0.08 0-1 K/uL Nucleated Red Blood Cells 0.0 0.0-0.19 % Chemistry Labs: Test 12/07/24 05:28 12/06/24 16:29 12/06/24 10:34 12/06/24 04:38 Range/Units Whole Blood Glucose 72 # 70-110 MG/DL Bedside Glucose Comment Notified Nurse Potassium Level 4.0 3.5-5.1 mmol/L Sodium Level 140 136-145 mmol/L Chloride Level 101 101-111 mmol/L Carbon Dioxide Level 33 H 21-32 mmol/L Blood Urea Nitrogen 16 7-18 mg/dL Creatinine 1.0 0.5-1.3 mg/dL Glomerular Filtration Rate Calc 93 >90 mL/min Random Glucose 160 H 70-105 mg/dL Total Calcium 9.0 8.5-10.1 mg/dL DIAGNOSTICS / RADIOLOGY RESULTS: [ ] PLAN IV ABX with zosyn and doxy stop lasix drip continue with lasix IVP Continue heparin for now for DVT until PO AC has been started cpap cardiac monitoring dc duoneb start atrovent nebs prn Solu-Medrol 40mg ivp bid for severe pneumonia, wean as possible now 20mg IVP q8hrs hepatitis panel follow cardiology recommendations currently on heparin gtt -Arrange outpatient pulmonology referral for sleep study, PFT and follow-up management upon discharge singulair protonix for GI PPX fc placement HIV ltest with reflex negative monito resp status closely, repeat abg if decline in resp status he is high risk for decompensations. 12/04/2024: For now, going to continue current management for the patient. We will continue oxygen supplementation via the nasal cannula. Also, the patient is going to remain on steroid therapy. We will order chest x-ray for tomorrow. The patient will remain on a heparin drip and we will follow the Cardiology input on management. We are going to monitor the WBC trend and treat accordingly. We wi ll continue antibiotic course with Zosyn and doxy as ordered. We will repeat surveillance labs in the morning. We will monitor the patient's progress and response to management. We will continue to provide general supportive care, GI and DVT prophylaxis. Further orders per attending MD and hospital course. 12/05/2024: For now, going to continue current management for the patient. He will continue on oxygen supplementation via nasal cannula and we will adjust as necessary. The patient was remain on antibiotic therapy due to pneumonia currently covered with Zosyn and doxycycline. We will continue with steroid therapy prednisone 40 daily and we will replace electrolyte deficit. Per the Cardiology team, the patient to continue with IV diuresis x1 more day and advised that the patient will not tolerate Entresto. Heparin drip was stopped and the patient will transition over to p.o. Eliquis. We will monitor the patient's progress and we will adjust management as necessary. Further orders per attending MD and hospital course. 12/06/2024: For now, going to continue current management for the patient. We are going to continue antibiotic therapy as ordered and steroid dose. The patient remains on diuretic therapy with furosemide 40 b.i.d.. We are going to follow the input of the Cardiology team. We will continue to provide general supportive care, GI and DVT prophylaxis. Further orders per attending MD and hospital course. 12/07/2024: Patient is generally stable. Per the staff nurse, the plan is for discharge home today. From the pulmonary/critical care standpoint, no objection for discharge home. The patient was advised to follow up with his PCP as scheduled and with treating specialist. He voiced understanding. No other complaint. NEURO: Minimize central acting medications as possible. Maintain fall precautions, adequate lighting during the day PULMONARY: Supplemental 02 as needed. Maintain aspiration precautions at all times CARDIOVASCULAR: Follow hemodynamics. Vital signs per facility protocol GI & NUTRITION: Continue with nutritional support. Continue stool softeners and laxatives as needed. KIDNEYS & ELECTROLYTES: Strict monitoring of intake, output and overall fluid balance. Avoid nephrotoxic medications to the extent possible. Medications to be dosed according to renal function. Monitor electrolytes and replace as needed ENDOCRINE: Maintain blood glucose between 100-180 at all times. Hypoglycemia protocol in place INFECTIOUS DISEASE: Trend temperature, WBC and procalcitonin level Follow cultures, deescalate antibiotics as soon as possible. Panculture if new onset fever ONCOLOGY/HEMATOLOGY/COAGULATION: Monitor for s/s of bleeding Monitor hemoglobin, coagulation studies as needed SKIN: Pressure ulcer prevention per facility protocol Specialty mattress ORTHO/REHAB: Continue PT/OT Prophylaxis: Continue GI and DVT prophylaxis Code Status: Full Resuscitation Disposition: TBD Other: Total patient care time exceeds 35 minutes excluding all procedures. AFSHAN BURGESS NP Dec 07, 2024 12:52
--- NOTE | 2024-12-07 15:56 | DS ---
Discharge Summary Hospital Course Summary: 49-year-old male with past medical history of diabetes, hyperlipidemia and hypertension who presents to the ED for complaints of left-sided chest pain. Patient described chest pain as pressure associated with diaphoresis,and shortness of breath.Patient reports his condition started by having a dry cough 2 days ago and he started having shortness of breath and unable to lay down because he feels drowning so he started sleeping sitting down in the chair at home for past 2 nights he said and he noticed his legs are swollen and when he woke up he started having left sided chest pressure that comes and goes,he thought it was from the way he slept and his position. Around 2:30 pm the pre vious day the pain intensity on his left sided chest start increasing and it became sharp so he decided to come to the ED for evaluation. Patient denies any CHF and other cardiac problem.Patient reports he has no waste reduction coordinator and has not seen one before.Patient reports he smoke 10 cigarette per day and denies alcohol and recreational drug use. Patient states he used to drink 12 beers per day but has already quit almost 3 years ago.Patient reports his dad had an [facility],hypertension and diabetes. Troponin elevated at 1732 BNP 1180. Urine toxicology result positive for amphetamines. EKG result revealed sinus tachycardia heart rate 118 with probable anterior infarct age indeterminate. Patient was admitted and cardiology was consulted. Echocardiogram was ordered showing decreased EF of 25-30% with stage II diastolic dysfunction. Bilateral venous doppler was done showing DVT with noncompressible thrombus in the left popliteal vein, he was started on heparin drip before being transitioned to Eliquis. After several days of diuresis his respiratory status improved and he was cleared for discharge. Cardiology recommended outpatient follow up for a coronary CCTA in 1-2 weeks as well as repeat ultrasound in 3 months to evaluate for resolution of DVT. . 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 Procedure(s): PORTABLE CHEST RADIOGRAPH INDICATION: chf COMPARISON: 12/06/2024 FINDINGS: grain weigher leads overlie the field of view. Heart size is normal. The pulmonary vascularity and flynn appear normal. No abnormal pulmonary parenchymal opacity or consolidation identified. Right costophrenic angle is slightly blunted. No pneumothorax detected. IMPRESSION: Trace right pleural fluid. US VENOUS DOPPLER BILATERAL HISTORY: Edema COMPARISON: None TECHNIQUE: Bilateral lower extremity venous Doppler ultrasound study was performed. FINDINGS: The common femoral, femoral, popliteal, and posterior tibial veins are visualized. Normal flow with augmentation and compressibilities are demonstrated on the right. There is partial thrombosis with noncompressible thrombus in the left popliteal vein.. The greater saphenous veins are also seen and grossly patent. IMPRESSION: 1. Deep venous thrombosis is seen with noncompressible thrombus in the left popliteal vein. CT ANGIOGRAM OF THE CHEST WITHOUT AND WITH CONTRAST. CT RECONSTRUCTIONS INDICATION: Extensive pneumonia TECHNIQUE: Routine axial images using 3 mm slice thickness were acquired from the lung apices to the bases before and after the intravenous administration of 100 mL of Omnipaque 350 contrast material using the pulmonary embolism protocol. Maximum Intensity Projection imaging in the sagittal and coronal planes were also provided. CT was performed with one or more of the following dose reduction techniques: Automated exposure control, adjustment of the mA and/or kV according to patient size, or use of iterative reconstruction technique. COMPARISON: None FINDINGS: The contrast bolus is of good quality for diagnosis of pulmonary embolism. The heart size is within normal limits without pericardial effusion. Coronary arterial wall calcific plaque noted. The main pulmonary arteries, segmental branches, and visualized subsegmental pulmonary arteries appear normal without intraluminal filling defects. Pulmonary trunk is not enlarged. Trace calcific plaque is present along the aortic arch and thoracic aortic briseno without aneurysmal dilation or dissection. The visible portions of the trachea and airways are patent. Several coalescent aggregates of "ground-glass" opacities scattered throughout both lungs, largest within the inferior left upper lobe, and associated small bilateral pleural effusions with subjacent passive atelectasis. No axillary, hilar, or mediastinal lymphadenopathy detected. Gallbladder is absent. Mild liver contour nodularity. Visible osseous structures are intact. IMPRESSION: 1. Bilateral lung pneumonia and small bilateral pleural effusions with subjacent passive atelectasis, but no evidence for pulmonary embolism. 2. Mild liver contour nodularity for which correlation with liver function tests is recommended. 3. Mild calcific plaque is present along the briseno of the cavernous segments of both internal carotid arteries. Echocardiogram: Conclusion The left ventricle is normal size. Spontaneous contrast seen in LV LVEF is 25-30%. Stage II, diastolic dysfunction. The right ventricle is normal size. The right ventricular systolic function is normal. The left atrium size is normal. The right atrium size is normal. No valvular pathology. Trace pericardial effusion. Assessment/Plan: Acute respiratory failure with hypoxia, improving POA NSTEMI POA Acute combined CHF exacerbation, Systolic EF 25-30%, stage III diastolic dysfunction, POA Bilateral pleural effusion, POA Bilateral multifocal pneumonia vs volume overload Uncontrolled diabetes with hyperglycemia last A1C 12.5, POA Hematuria, s/p [place], removed (12/05/24) Normocytic normochromic anemia POA Acute thrombocytosis POA Pseudohyponatremia secondary to hyperglycemia, improving, POA Hyperlipidemia POA Nicotine dependence POA 76 pack-year smoker, POA Positive amphetamines POA Discharge Instructions: Follow up with PCP in 3-7 days, adjust his diabetes medications, last A1C 12.5 Follow up with waste reduction coordinator in 1-2 weeks for outpatient CCTA Follow up with misdraw hand in 1-2 weeks Home Medications: Active Scripts Fluticasone/Salmeterol (ADVAIR 250-50 DISKUS) 14 Inh/Disk Inh, 1 PUFF IH BID for 30 Days, #1 EACH 0 Refills Prov:RASHEED GARCIA MD 12/07/24 Prednisone (Deltasone/Orasone [Bulk]) 20 Mg Tab, 40 MG PO DAILY, #6 TAB 0 Refills Prov:RASHEED GARCIA MD 12/07/24 Montelukast Sodium (Singulair 10Mg) 10 Mg Tab, 10 MG PO DAILY, #30 TAB 0 Refills Prov:RASHEED GARCIA MD 12/07/24 Amoxicillin/Potassium Clav (Amox Tr-K Clv 875-125 mg Tab) 875 Mg-125 Mg Tablet, 1 EACH PO BID for 7 Days, #14 TAB Prov:RASHEED GARCIA MD 12/07/24 Doxycycline Hyclate (Doxycycline Hyclate) 100 Mg Capsule, 1 CAP PO BID for 7 Days, #14 CAP 0 Refills Prov:RASHEED GARCIA MD 12/07/24 Midodrine HCl (Midodrine HCl) 5 Mg Tablet, 15 MG PO TID for 30 Days, #90 TAB Prov:RASHEED GARCIA MD 12/07/24 Furosemide (Lasix 40Mg Tab) 40 Mg Tablet, 40 MG PO BID@09,17, #60 TAB 0 Refills Prov:RASHEED GARCIA MD 12/07/24 Aspirin (ASPIRIN 81 MG ECTAB) 81 Mg Ectab, 81 MG PO DAILY, #30 TAB.EC 0 Refills Prov:RASHEED GARCIA MD 12/07/24 Apixaban (Eliquis) 5 Mg Tablet, 5 MG PO BID, #60 TAB 0 Refills Prov:RASHEED GARCIA MD 12/07/24 Polyethylene Glycol 3350 (Miralax) 17 Gm Powd.pack, 17 GM PO DAILY for 30 Days, #30 TAB Prov:GISEL VILLEGAS NP 01/11/22 Reported Medications Glipizide (Glipizide ER) 10 Mg Tab.er.24, 10 MG PO BIDLUNCHDINNER 01/08/22 Metformin HCl (Metformin HCl) 1,000 Mg Tablet, 1000 MG PO BID, TAB 01/08/22 Lovastatin (Lovastatin) 20 Mg Tablet, 20 MG PO DAILY, TAB 01/08/22 Discontinued Reported Medications Hydrochlorothiazide (Hydrochlorothiazide) 25 Mg Tablet, 25 MG PO DAILY, TAB 01/08/22 Lisinopril (Lisinopril) 2.5 Mg Tablet, 2.5 MG PO DAILY, TAB 01/03/22 Atenolol (Atenolol) 50 Mg Tablet, 50 MG PO DAILY, TAB 01/03/22 New Medications: Amoxicillin/Potassium Clav (Amox Tr-K Clv 875-125 mg Tab) 875 Mg-125 Mg Tablet 1 EACH PO BID for 7 Days, #14 TAB Doxycycline Hyclate (Doxycycline Hyclate) 100 Mg Capsule 1 CAP PO BID for 7 Days, #14 CAP 0 Refills Fluticasone/Salmeterol (Advair 250-50 Diskus) 14 Inh/Disk Inh 1 PUFF IH BID for 30 Days, #1 EACH 0 Refills Midodrine HCl (Midodrine HCl) 5 Mg Tablet 15 MG PO TID for 30 Days, #90 TAB Apixaban (Eliquis) 5 Mg Tablet 5 MG PO BID, #60 TAB 0 Refills Aspirin (Aspirin 81 Mg Ectab) 81 Mg Ectab 81 MG PO DAILY, #30 TAB.EC 0 Refills Furosemide (Lasix 40Mg Tab) 40 Mg Tablet 40 MG PO BID@09,17, #60 TAB 0 Refills Montelukast Sodium (Singulair 10Mg) 10 Mg Tab 10 MG PO DAILY, #30 TAB 0 Refills Prednisone (Deltasone/Orasone [Bulk]) 20 Mg Tab 40 MG PO DAILY, #6 TAB 0 Refills Continued Medications: Glipizide (Glipizide ER) 10 Mg Tab.er.24 10 MG PO BIDLUNCHDINNER Lovastatin (Lovastatin) 20 Mg Tablet 20 MG PO DAILY, TAB Metformin HCl (Metformin HCl) 1,000 Mg Tablet 1000 MG PO BID, TAB Polyethylene Glycol 3350 (Miralax) 17 Gm Powd.pack 17 GM PO DAILY for 30 Days, #30 TAB Discontinued Medications: Atenolol (Atenolol) 50 Mg Tablet 50 MG PO DAILY, TAB Hydrochlorothiazide (Hydrochlorothiazide) 25 Mg Tablet 25 MG PO DAILY, TAB Lisinopril (Lisinopril) 2.5 Mg Tablet 2.5 MG PO DAILY, TAB Time spent arranging discharge: 31-60 minutes RASHEED GARCIA MD Dec 07, 2024 15:56
== END 2024-12-07 12:10 | disposition home or self-care (01) | DRG 280 ==
LOC: EDH 22:16 → EDHIP 22:17 → 2BH 12-01 15:54 → 2AH 12-01 21:00
PROVIDERS: ADMIT Internal Medicine; ATTEND Internal Medicine
DX: I11.0 Hypertensive heart disease with heart failure (principal); I50.43 Acute on chronic combined systolic (congestive) and diastolic (congestive) heart failure; I21.A1 Myocardial infarction type 2; J18.9 Pneumonia, unspecified organism; J96.01 Acute respiratory failure with hypoxia; I82.432 Acute embolism and thrombosis of left popliteal vein; E87.1 Hypo-osmolality and hyponatremia; Z20.822 Contact with and (suspected) exposure to COVID-19; E11.65 Type 2 diabetes mellitus with hyperglycemia; E78.00 Pure hypercholesterolemia, unspecified; D64.9 Anemia, unspecified; D75.839 Thrombocytosis, unspecified; F15.10 Other stimulant abuse, uncomplicated; F17.210 Nicotine dependence, cigarettes, uncomplicated; Z79.899 Other long term (current) drug therapy; Z82.49 Family history of ischemic heart disease and other diseases of the circulatory system; Z83.3 Family history of diabetes mellitus
CPT/HCPCS: 36415; 36600; 71045; 71270; 80048; 80053; 80061; 80305; 81001; 82010; 82435; 82550; 82803; 82947; 82948; 83036; 83540; 83550; 83605; 83735; 83880; 84100; 84132; 84295; 84443; 84484; 85018; 85025; 85027; 85378; 85610; 85730; 86701; 86738; 87040; 87071; 87205; 87390; 87449; 87635; 87804; 87880; 93005; 93306; 93356; 93970; 94640; 94660; 94664; 94760; 96372; 99291; A4344; G0378; J0696; J1644; J1650; J1815; J1940; J2470; J2543; J2919; J3360; J3411; J3475; J3490; Q9967